=== PATIENT | male | born 1955 | race Caucasian/White ===

== ENCOUNTER 2018-03-09 14:41 | Emergency (ER) | payer OTHER ==
[2018-03-09] MEDS ORDERED: GLUCAGON 1 MG/VIAL ONE ×2 (15:17→16:21)
[2018-03-09] MEDS ORDERED: ONDANSETRON 4 MG/2 ML VIAL ONE (15:17)
[2018-03-09] MEDS ORDERED: LORazepam 2 MG/ML VIAL ONE (15:48)
[2018-03-09 16:03] LABS: Potassium 3.7 mmol/L (3.5-5.1)
[2018-03-09 16:05] LABS: Absolute Lymphocytes (CBC) 1.5 K/uL (0.7-4.9); Absolute Monocytes 0.8 K/uL (0.1-1.3); Absolute Neutrophil 2.4 K/uL (1.8-8.0); Basophils % 1.1 % (0-1.3); Eosinophils % 6.4 % (0-4.4); Hematocrit 36.8 % (39.6-49.0); Lymphocytes % 29.4 % (15.3-44.8); Monocytes % 15.3 % (3.3-12.3); RBC Red Blood Cell Count 4.12 M/uL (4.33-5.43)
[2018-03-09] MEDS ORDERED: NA CHLORIDE 0.9% 1,000 ML ONE (16:56)
[2018-03-09] MEDS ORDERED: D50W 25 GM/50 ML SYRINGE IV ONE (16:56)
--- NOTE | 2018-03-09 16:58 | RAD REPORT ---
EXAM DESCRIPTION: RAD - Neck Soft Tissue - 03/09/2018 3:49 pm CLINICAL HISTORY: foreign body COMPARISON: No comparisons FINDINGS: Prevertebral soft tissues are normal. Epiglottis and aryepiglottic folds are normal. Air c olumn is patent. No foreign body is seen. IMPRESSION: Negative study.
--- NOTE | 2018-03-09 17:14 | ER ---
Nurse's Notes [facility] Name: Surendra Bates Age: 62 yrs Sex: Male : 1955 Arrival Date: 03/09/2018 Time: 14:45 Bed 23 Private MD: Diagnosis: Esophageal obstruction-due to foreign body Presentation: 03/09 14:47 Presenting complaint: EMS states: pt started choking on a piece of hot dog, about 35 tl3 minutes ago, unable to swallow secretions, airway patent, BBS clear. Transition of care: patient was not received from another setting of care. Onset of symptoms was March 09, 2018 at 14:00. Risk Assessment: Do you want to hurt yourself or someone else? Patient reports no desire to harm self or others. Initial Sepsis Screen: Does the patient meet any 2 criteria? No. Patient's initial sepsis screen is negative. Does the patient have a suspected source of infection? No. Patient's initial sepsis screen is negative. Care prior to arrival: None. 14:47 Method Of Arrival: EMS: [facility] tl3 14:47 Acuity: DO 3 tl3 Triage Assessment: 15:02 General: Appears uncomfortable, Behavior is calm, cooperative, appropriate for age. tl3 Pain: Complains of pain in esophageal. 15:02 Neuro: Level of Consciousness is awake, alert, obeys commands, Oriented to person, tl3 place, time, situation, Appropriate for age. Cardiovascular: Patient's skin is warm and dry. Respiratory: Airway is patent Respiratory effort is even, unlabored, Respiratory pattern is regular, symmetrical, Breath sounds are clear bilaterally. Historical: - Allergies: 15:02 No Known Allergies; tl3 - Home Meds: 15:02 pregabalin 225 mg Oral [Active]; leflunomide 20 mg oral tab 1 tab once daily [Active]; tl3 omeprazole 20 mg Oral cpDR 1 cap 2 times per day [Active]; meloxicam 15 mg oral tab 1 tab once daily [Active]; trazodone 100 mg Oral tab 2 tabs nightly [Active]; cyclobenzaprine 10 mg Oral tab 0.5 tab 3 times per day [Active]; escitalopram oxalate 20 mg oral tab 1 tab once daily [Active]; atorvastatin 10 mg oral tab once daily [Active]; ranitidine HCl 150 mg Oral cap 1 cap once daily [Active]; calcium citrate oral [Active]; finasteride 5 mg oral tab 1 tab once daily [Active]; buspirone 10 mg Oral tab 1 tab 3 times per day [Active]; Acidophilus Oral cap [Active]; thiamine HCl (vitamin B1) 100 mg Oral tab daily [Active]; cetirizine 10 mg oral tab 1 tab once daily [Active]; alendronate 70 mg/75 mL oral soln 75 mL once wkly [Active]; Vitamin B-12 100 mcg Oral tab [Active]; - PSHx: 15:02 right hand surgery/ wound drainage; cataract repair right eye; tl3 - Immunization history:: Adult Immunizations up to date. - Social history:: Smoking status: Patient/guardian denies using tobacco, the patient reports quitting approximately 12 years ago. - Ebola Screening: : No symptoms or risks identified at this time. Screenin:04 Abuse screen: Denies threats or abuse. Nutritional screening: No deficits noted. tl3 Tuberculosis screening: No symptoms or risk factors identified. Fall Risk None identified. Assessment: 15:04 Reassessment: No changes from previously documented assessment. tl3 16:14 Reassessment: No changes from previously documented assessment. Patient and/or family tl3 updated on plan of care and expected duration. Pain level reassessed. Patient is alert, oriented x 3, equal unlabored respirations, skin warm/dry/pink. pt still unable to swallow fluids, second dose of glucagon administered. 16:55 Reassessment: pt still unable to tolerate fluids, attempted while sitting straight up tl3 and while standing up. 17:44 Reassessment: No changes from previously documented assessment. Patient and/or family tl3 updated on plan of care and expected duration. Pain level reassessed. Patient is alert, oriented x 3, equal unlabored respirations, skin warm/dry/pink. report called to Melba ROWELL at [facility] in [place]. Vital Signs: 15:02 BP 161 / 101; Pulse 78; Resp 18; Pulse Ox 96% on R/A; tl3 16:14 BP 161 / 96; Pulse 79; Resp 18; Pulse Ox 95% on R/A; tl3 16:44 BP 153 / 96; Pulse 74; Resp 18; Temp 98.2(O); Pulse Ox 94% ; tl3 17:47 BP 158 / 111; Pulse 78; Resp 18; Pulse Ox 97% ; tl3 ED Course: 14:45 Patient arrived in ED. tl3 14:48 Triage completed. tl3 14:55 [facility] cp 14:55 Giuseppe Clemens MD is Attending Physician. cp 15:02 Arm band placed on right wrist. tl3 15:04 Patient has correct armband on for positive identification. Bed in low position. Call tl3 light in reach. Side rails up X 1. Pulse ox on. NIBP on. 15:04 No provider procedures requiring assistance completed. tl3 15:26 Initial lab(s) drawn, by me, sent to lab. Inserted saline lock: 20 gauge in right tl3 antecubital area, using aseptic technique. Blood collected. 15:43 Abby Rich, RN is Primary Nurse. tl3 15:45 Patient moved to radiology via wheelchair. tl3 15:48 X-ray completed. Patient tolerated procedure well. sg4 15:49 XRAY Neck Soft Tissue In Process Unspecified. EDMS 17:44 Patient transferred, IV remains in place. tl3 Administered Medications: 15:25 Drug: Zofran 4 mg Route: IVP; Infused Over: 2 mins; Site: right antecubital; tl3 16:16 Follow up: Response: No adverse reaction tl3 15:27 Drug: Glucagon 1 mg Route: IVP; Infused Over: 1 mins; Site: right antecubital; tl3 16:16 Follow up: Response: No adverse reaction tl3 15:44 Drug: Ativan 1 mg Route: IVP; Infused Over: 1 mins; Site: right antecubital; tl3 16:16 Follow up: Response: No adverse reaction tl3 16:14 Drug: Glucagon 1 mg Route: IVP; Site: right antecubital; tl3 16:43 Follow up: Response: No adverse reaction tl3 16:54 Drug: NS 0.9% 500 ml Route: IV; Rate: bolus; Site: right antecubital; Delivery: Primary tl3 tubing; 17:45 Follow up: IV Status: Completed infusion; IV Intake: 500ml tl3 16:55 Drug: D50W 50 ml Route: IVP; Infused Over: 2 mins; Site: right antecubital; tl3 17:45 Follow up: Response: No adverse reaction tl3 Point of Care Testing: Blood Glucose: 15:26 Blood Glucose: 82 mg/dL; tl3 Ranges: Intake: 17:45 IV: 500ml; Total: 500ml. tl3 Outcome: 17:13 ER care complete, transfer ordered by . cp 17:44 Transferred by ground EMS to [facility]. tl3 17:44 Condition: stable 17:44 Instructed on the need for transfer. 18:16 Patient left the ED. tl3 Signatures: Dispatcher [employer] EDMS Kash Diaz PA PA cp Lowrey, Tammy, RN RN tl3 Piedad Huynh sg4
--- NOTE | 2018-03-09 17:14 | EDPHYS ---
Physician Documentation [facility] Name: Surendra Bates Age: 62 yrs Sex: Male : 1955 Arrival Date: 03/09/2018 Time: 14:45 Bed 23 Private MD: ED Physician Giuseppe Clemens HPI: 03/09 15:00 This 62 yrs old Male presents to ER via EMS with complaints of Choked/Choking.cp 15:02 The patient presents with dysphagia, of liquids, a foreign body sensation in the cp throat. Onset: The symptoms/episode began/occurred today. Severity of symptoms: in the emergency department the symptoms are unchanged, despite EMS interventions. Associated signs and symptoms: Pertinent positives: cough, vomiting, Pertinent negatives chest pain, fever. Patient reports feeling of piece of hot dog being stuck in throat after episode of choking today. Patient reports inability to swallow liquids since episode of choking. Historical: - Allergies: 15:02 No Known Allergies; tl3 - Home Meds: 15:02 pregabalin 225 mg Oral [Active]; leflunomide 20 mg oral tab 1 tab once daily [Active]; tl3 omeprazole 20 mg Oral cpDR 1 cap 2 times per day [Active]; meloxicam 15 mg oral tab 1 tab once daily [Active]; trazodone 100 mg Oral tab 2 tabs nightly [Active]; cyclobenzaprine 10 mg Oral tab 0.5 tab 3 times per day [Active]; escitalopram oxalate 20 mg oral tab 1 tab once daily [Active]; atorvastatin 10 mg oral tab once daily [Active]; ranitidine HCl 150 mg Oral cap 1 cap once daily [Active]; calcium citrate oral [Active]; finasteride 5 mg oral tab 1 tab once daily [Active]; buspirone 10 mg Oral tab 1 tab 3 times per day [Active]; Acidophilus Oral cap [Active]; thiamine HCl (vitamin B1) 100 mg Oral tab daily [Active]; cetirizine 10 mg oral tab 1 tab once daily [Active]; alendronate 70 mg/75 mL oral soln 75 mL once wkly [Active]; Vitamin B-12 100 mcg Oral tab [Active]; - PSHx: 15:02 right hand surgery/ wound drainage; cataract repair right eye; tl3 - Immunization history:: Adult Immunizations up to date. - Social history:: Smoking status: Patient/guardian denies using tobacco, the patient reports quitting approximately 12 years ago. - Ebola Screening: : No symptoms or risks identified at this time. ROS: 15:04 Eyes: Negative for injury, pain, redness, and discharge. cp 15:04 Constitutional: Negative for body aches, chills, fever, poor PO intake. 15:04 ENT: Positive for foreign body sensation, of the throat. 15:04 Neck: Negative for injury or acute deformity, pain with movement, pain at rest. 15:04 Cardiovascular: Negative for chest pain, edema, palpitations. 15:04 Respiratory: Negative for cough, shortness of breath, wheezing. 15:04 Abdomen/GI: Positive for nausea and vomiting, Negative for abdominal pain, diarrhea, constipation. 15:04 Back: Negative for pain at rest, pain with movement, radiated pain. 15:04 Skin: Negative for cellulitis, rash. 15:04 Neuro: Negative for altered mental status, headache, weakness. 15:04 All other systems are negative. Exam: 15:10 Constitutional: The patient appears in no acute distress, alert, awake, cp non-diaphoretic, non-toxic, well developed, well nourished. 15:10 Head/Face: Normocephalic, atraumatic. cp 17:14 Eyes: Periorbital structures: appear normal, Pupils: equal, round, and reactive to cp light and accomodation, Extraocular movements: intact throughout, Conjunctiva: normal, no exudate, no injection, Sclera: no appreciated abnormality, Lids and lashes: appear normal, bilaterally. 17:14 ENT: External ear(s): are unremarkable, Ear canal(s): are normal, clear, TM's: bulging, is not appreciated, bilaterally, dullness, bilaterally, erythema, is not appreciated, bilaterally, Nose: is normal, Mouth: Lips: moist, Oral mucosa: pink and intact, moist, Tongue: is normal, drooling, is not appreciated, Posterior pharynx: Airway: no evidence of obstruction, patent, Tonsils: are normal in appearance, Uvula: midline, swelling, is not appreciated, erythema, is not appreciated, exudate, is not appreciated, Voice: is hoarse. 17:14 Neck: ROM/movement: is normal, is supple, no range of motions limitations, no meningismus, no nuchal rigidity. 17:14 Chest/axilla: Inspection: normal, Palpation: is normal, no crepitus, no tenderness. 17:14 Cardiovascular: Rate: normal, Rhythm: regular, Edema: is not appreciated, JVD: is not appreciated. 17:14 Respiratory: the patient does not display signs of respiratory distress, Respirations: normal, no use of accessory muscles, no retractions, no splinting, no tachypnea, labored breathing, is not present, Breath sounds: are clear throughout, no decreased breath sounds, no stridor, no wheezing. 17:14 Abdomen/GI: Inspection: abdomen appears normal, Bowel sounds: active, all quadrants, Palpation: abdomen is soft and non-tender, in all quadrants, rebound tenderness, is not appreciated, voluntary guarding, is not appreciated, involuntary guarding, is not appreciated. 17:14 Back: pain, is absent, ROM is normal. 17:14 Skin: cellulitis, is not appreciated, no rash present. 17:14 Neuro: Orientation: is normal, Mentation: is normal, Cerebellar function: is grossly normal, Motor: is normal, Sensation: is normal. Vital Signs: 15:02 BP 161 / 101; Pulse 78; Resp 18; Pulse Ox 96% on R/A; tl3 16:14 BP 161 / 96; Pulse 79; Resp 18; Pulse Ox 95% on R/A; tl3 16:44 BP 153 / 96; Pulse 74; Resp 18; Temp 98.2(O); Pulse Ox 94% ; tl3 17:47 BP 158 / 111; Pulse 78; Resp 18; Pulse Ox 97% ; tl3 MDM: 14:55 Patient medically screened. cp 16:30 Data reviewed: vital signs, nurses notes, lab test result(s), radiologic studies, plain cp films. 16:30 Counseling: I had a detailed discussion with the patient and/or guardian regarding: the cp historical points, exam findings, and any diagnostic results supporting the discharge/admit diagnosis, lab results, radiology results, the need to transfer to another facility, [facility] does not immediately have the required specialist. 16:36 ED course: VSS. Patient remains intolerant of po fluids. cp 17:19 Physician consultation: was contacted at 17:10, DR Galo, hospitalist \T\[facility], will accept patient as transfer and GI will consult. 03/09 15:01 Order name: BMP; Complete Time: 16:15 03/09 15:01 Order name: CBC with Diff; Complete Time: 16:15 03/09 16:16 Interpretation: Normal except: RBC 4.12; HGB 12.5; HCT 36.8; PLT 113; RDW 16.9; MN% cp 15.3; EOSINOPHIL % 6.4. 03/09 15:01 Order name: XRAY Neck Soft Tissue; Complete Time: 17:14 03/09 17:14 Interpretation: Report reviewed. 03/09 15:01 Order name: IV; Complete Time: 15:25 03/09 15:01 Order name: Accucheck Blood Glucose; Complete Time: 15:25 03/09 15:33 Order name: PO challenge; Complete Time: 16:43 03/09 16:37 Order name: Vital Signs: repeat to include temp; Complete Time: 16:44 03/09 17:03 Order name: NPO; Complete Time: 17:47 cp Administered Medications: 15:25 Drug: Zofran 4 mg Route: IVP; Infused Over: 2 mins; Site: right antecubital; tl3 16:16 Follow up: Response: No adverse reaction tl3 15:27 Drug: Glucagon 1 mg Route: IVP; Infused Over: 1 mins; Site: right antecubital; tl3 16:16 Follow up: Response: No adverse reaction tl3 15:44 Drug: Ativan 1 mg Route: IVP; Infused Over: 1 mins; Site: right antecubital; tl3 16:16 Follow up: Response: No adverse reaction tl3 16:14 Drug: Glucagon 1 mg Route: IVP; Site: right antecubital; tl3 16:43 Follow up: Response: No adverse reaction tl3 16:54 Drug: NS 0.9% 500 ml Route: IV; Rate: bolus; Site: right antecubital; Delivery: Primary tl3 tubing; 17:45 Follow up: IV Status: Completed infusion; IV Intake: 500ml tl3 16:55 Drug: D50W 50 ml Route: IVP; Infused Over: 2 mins; Site: right antecubital; tl3 17:45 Follow up: Response: No adverse reaction tl3 Point of Care Testing: Blood Glucose: 15:26 Blood Glucose: 82 mg/dL; tl3 Ranges: Critical Glucose Levels:Adult <50 mg/dl or >400 mg/dl <40 mg/dl or >180 mg/dl Disposition: 03/09/18 17:13 Transfer ordered to [facility]. Diagnosis is Esophageal obstruction - due to foreign body. - Reason for transfer: Higher level of care. - Accepting physician is DR Galo. - Condition is Stable. - Problem is new. - Symptoms are unchanged. Addendum: 03/20/2018 15:41 Co-signature as Attending Physician, Giuseppe Clemens MD Available for consultation at p s1 all times. . Signatures: Dispatcher [employer] EDMS Kash Diaz PA PA cp Giuseppe Clemens MD MD ps1 Abby Rich RN RN tl3 Corrections: (The following items were deleted from the chart) 03/09 18:16 17:13 03/09/2018 17:13 Transfer ordered to [facility]. Diagnosis is tl3 Esophageal obstruction - due to foreign body. Reason for transfer: Higher level of care. Accepting physician is DR Galo. Condition is Stable. Problem is new. Symptoms are unchanged. cp
== END 2018-03-09 18:16 | disposition short-term general hospital (02) ==
LOC: ER 14:41
DX: T18.198A Other foreign object in esophagus causing other injury, initial encounter (principal); X58.XXXA Exposure to other specified factors, initial encounter; Z79.899 Other long term (current) drug therapy; Z87.891 Personal history of nicotine dependence
CPT/HCPCS: 36415; 70360; 80048; 82962; 85025; 96361; 96374; 96375; 99285; J1610 ×2; J2405; J7030

== ENCOUNTER 2018-12-15 13:21 | Inpatient (IN) | payer OTHER ==
[2018-12-15] MEDS ORDERED: LEVALBUTEROL 1.25 MG/3 ML NEB ONE (15:09)
[2018-12-15] MEDS ORDERED: NA CHLORIDE 0.9% 1,000 ML ONE (15:09)
[2018-12-15] MEDS ORDERED: METHYLPREDNISOLONE 125 MG INJ ONE (15:09)
[2018-12-15 15:34] LABS: Absolute Lymphocytes (CBC) 0.7 K/uL (0.7-4.9); Basophils % 0.4 % (0-1.3); Hematocrit 29.5 % (39.6-49.0); Lymphocytes % 6.7 % (15.3-44.8); MPV 10.5 fL (7.6-11.3); RBC Red Blood Cell Count 3.24 M/uL (4.33-5.43)
[2018-12-15 15:57] LABS: ALT/SGPT 20 U/L (12-78); AST/SGOT 35 U/L (15-37); Alkaline Phosphatase 159 U/L (45-117); BUN Blood Urea Nitrogen 21 mg/dL (7-18); Bicarbonate 31 mmol/L (21-32); Bilirubin Direct 0.2 mg/dL (0-0.2); Bilirubin Total 0.5 mg/dL (0.2-1.0); Glucose Level 102 mg/dL (74-106); Lipase 81 U/L (73-393); NT PRO-BNP 146 pg/mL (<125); Potassium 3.6 mmol/L (3.5-5.1); Protein, Total 6.8 g/dL (6.4-8.2); Sodium Level 134 mmol/L (136-145); Troponin (Emerg Dept Use Only) < 0.02 ng/mL (0.0-0.045)
--- NOTE | 2018-12-15 15:57 | RAD REPORT ---
EXAM DESCRIPTION: RAD - Chest Single View - 12/15/2018 3:41 pm CLINICAL HISTORY: Fever, shortness of breath, dyspnea COMPARISON: None. TECHNIQUE: AP portable chest image was obtained 1531 hours . FINDINGS: Interstitial markings are mildly prominent believed be baseline. Increased interstitial an d alveolar opacities are present in the left lung base. Heart and vasculature are normal. No measurab le pleural effusion and no pneumothorax. No acute bony abnormality seen. No acute aortic findings inés pected. IMPRESSION: Mild or early left lung base pneumonia.
[2018-12-15] MEDS ORDERED: CEFTRIAXONE/SWI 1gm 1 GM/10 ML SYR ONE (16:26)
[2018-12-15] MEDS ORDERED: AZITHROMYCIN IV 500 MG in NA CHLORIDE 0.9% 250 ML IVPB ONE (17:00)
--- NOTE | 2018-12-15 17:14 | RAD REPORT ---
EXAM DESCRIPTION: CT - Abdomen Pelvis W Contrast - 12/15/2018 4:57 pm CLINICAL HISTORY: abd pain, diarrhea COMPARISON: Chest films same date TECHNIQUE: Biphasic, helical CT imaging of the abdomen and pelvis was performed following 100 ml non -ionic IV contrast. Oral contrast was given. All CT scans are performed using dose optimization technique as appropriate and may include automated exposure control or mA/KV adjustment according to patient size. FINDINGS: No pericardial thickening or effusion. Interstitial and alveolar opacities are present in the left lung base and minimally in the posterior gutter on the right. No large mass or consolidation . Minimal stranding in the lingula which could be scarring. The liver, spleen, and pancreas show no suspicious findings. At least 1 small gallstone is present. N o active gallbladder process identified. No biliary tree dilatation. Symmetric renal function is seen with no hydronephrosis or suspicious renal mass. No pyelonephritis o r acute parenchymal process. Renal vascular calcifications are present. Urinary bladder is distended. No wall thickening or mass. No adrenal abnormalities. Small hiatal hernia is present. No gastric dilatation, wall thickening or mass identified. Fluid fill ed, nondilated distal small bowel loops are present. Fluid filled right-side of the colon is present without dilatation. No focal colon wall mass or wall thickening. Sigmoid is redundant extending to th e anterior upper mid abdomen. No free air, free fluid or inflammatory stranding. No hernia, mass or bulky lymphadenopathy. Bony degenerative changes are present. No acute bone finding. Vascular calcifications are present. IMPRESSION: Fluid-filled distal small bowel and right-side: Suspicious for a nonspecific enteritis. Bilateral lung base pneumonia findings worse on the left. Cholelithiasis without active gallbladder process.
--- NOTE | 2018-12-15 17:32 | EDPHYS ---
Physician Documentation [facility] Name: Surendra Bates Age: 63 yrs Sex: Male : 1955 Arrival Date: 12/15/2018 Time: 13:[address] Private MD: ED Physician Vijay Dinero HPI: 12/15 15:22 This 63 yrs old Male presents to ER via Wheelchair with complaints of rn Shortness Of Breath, Fever, Fall Injury. 15:22 The patient has shortness of breath at rest, with light activity. Onset: The rn symptoms/episode began/occurred 2 week(s) ago. Duration: The symptoms are continuous. The patient's shortness of breath is aggravated by exertion, light activity. Severity of symptoms: At their worst the symptoms were moderate in the emergency department the symptoms are unchanged. The patient has not experienced similar symptoms in the past. Family reports has been having intermittent fever for 2 weeks, assoc with productive cough and generalized weakness causing him to fall and possibly pass out. Reports non-bloody diarrhea, and right rib pain from most recent fall. Family reports has not been drinking water. . Historical: - Allergies: 13:52 No Known Allergies; la1 - Home Meds: 14:53 Acidophilus Oral cap [Active]; alendronate 70 mg/75 mL Oral soln 75 mL once wkly sg [Active]; atorvastatin 10 mg Oral tab once daily [Active]; buspirone 10 mg Oral tab 1 tab 3 times per day [Active]; Calcium Citrate Oral [Active]; cetirizine 10 mg Oral tab 1 tab once daily [Active]; cyclobenzaprine 10 mg Oral tab 0.5 tab 3 times per day [Active]; escitalopram oxalate 20 mg Oral tab 1 tab once daily [Active]; finasteride 5 mg Oral tab 1 tab once daily [Active]; leflunomide 20 mg Oral tab 1 tab once daily [Active]; meloxicam 15 mg Oral tab 1 tab once daily [Active]; omeprazole 20 mg Oral cpDR 1 cap 2 times per day [Active]; pregabalin 225 mg Oral [Active]; ranitidine HCl 150 mg Oral cap 1 cap once daily [Active]; thiamine HCl (vitamin B1) 100 mg Oral tab daily [Active]; trazodone 100 mg Oral tab 2 tabs nightly [Active]; Vitamin B-12 100 mcg Oral tab [Active]; - PSHx: 14:53 right hand surgery/ wound drainage; cataract repair right eye; sg - Immunization history:: Adult Immunizations up to date. - Social history:: Smoking status: Patient/guardian denies using tobacco. - Ebola Screening: : No symptoms or risks identified at this time. - Family history:: not pertinent. - Hospitalizations: : No recent hospitalization is reported. ROS: 15:22 Constitutional: Negative for weight loss Eyes: Negative for injury, pain, redness, and furniture sander, Neck: Negative for injury, pain, and swelling, Cardiovascular: Negative for palpitations, and edema, Respiratory: + sob and cough Abdomen/GI: Negative for abdominal pain, nausea, vomiting, and constipation, MS/Extremity: Negative for injury and deformity, Skin: Negative for injury, rash, and discoloration, Neuro: Negative for headache, numbness, tingling, and seizure. Exam: 15:22 Constitutional: Thin male, appears dehydrated and weak Head/Face: Normocephalic, rn atraumatic. Eyes: Pupils equal round and reactive to light, extra-ocular motions intact. Lids and lashes normal. Conjunctiva and sclera are non-icteric and not injected. Cornea within normal limits. Periorbital areas with no swelling, redness, or edema. ENT: dry MM Chest/axilla: + tenderness along right anterior/lateral chest wall, no crepitus, no ecchymosis Cardiovascular: Regular rate and rhythm. No pulse deficits. Respiratory: + diminished air flow and breath sounds bilateral lung colon, faint exp wheezing. Abdomen/GI: soft, mild RUQ tenderness, no rebound MS/ Extremity: Pulses equal, no cyanosis. Neurovascular intact. Full, normal range of motion. Equal circumference. Neuro: Awake and alert, GCS 15, oriented to person, place, time, and situation. Cranial nerves II-XII grossly intact. Motor strength 4/5 in all extremities. Sensory grossly intact. Cerebellar exam normal. Vital Signs: 13:52 BP 94 / 67; Pulse 91; Resp 16; Temp 98.4; Pulse Ox 91% on R/A; la1 14:30 BP 96 / 72; Pulse 90; Resp 20 S; Pulse Ox 97% on 2 lpm NC; sg 16:00 BP 102 / 60; Pulse 96; Resp 17; Pulse Ox 96% on 2 lpm NC; sg 18:00 BP 108 / 62; Pulse 90; Resp 20; Pulse Ox 97% on 2 lpm NC; sg MDM: 14:50 Patient medically screened. rn 16:14 Differential diagnosis: Chronic Obstructive Pulmonary Disease pneumonia, pulmonary rn edema, Sepsis. Data reviewed: vital signs, nurses notes, lab test result(s), EKG, radiologic studies, plain films, and as a result, I will admit patient. Counseling: I had a detailed discussion with the patient and/or guardian regarding: the historical points, exam findings, and any diagnostic results supporting the discharge/admit diagnosis, lab results, radiology results, the need for further work-up and treatment in the hospital. Response to treatment: the patient's symptoms have mildly improved after treatment, and as a result, I will admit patient. Admission orders: after a detailed discussion of the patient's condition and case, the admit orders are written by me. ED course: Pt admitted for pneumonia, failure of outpatient therapy, dehydration and weakness. NO oxygen at home, and here is high 80s on RA. . 12/15 15:04 Order name: Blood Culture Adult (2) rn 12/15 15:04 Order name: BMP rn 12/15 15:04 Order name: CBC with Diff rn 12/15 15:04 Order name: Hepatic Function rn 12/15 15:04 Order name: Lipase rn 12/15 15:04 Order name: NT PRO-BNP rn 12/15 15:04 Order name: Troponin (emerg Dept Use Only) rn 12/15 15:04 Order name: Procalcitonin rn 12/15 15:04 Order name: Lactate rn 12/15 15:04 Order name: Flu rn 12/15 15:43 Order name: CBC with Automated Diff; Complete Time: 16:05 EDAR 12/15 15:57 Order name: Basic Metabolic Panel; Complete Time: 16:05 EDAR 12/15 15:57 Order name: Liver (Hepatic) Function; Complete Time: 16:05 EDMS 12/15 15:57 Order name: Troponin (Emerg Dept Use Only); Complete Time: 16:05 EDAR 12/15 15:04 Order name: XRAY CXR (1 view) rn 12/15 15:04 Order name: EKG; Complete Time: 15:12 rn 12/15 15:26 Order name: CT Abd/Pelvis - IV Contrast Only rn 12/15 15:57 Order name: NT PRO-BNP; Complete Time: 16:05 EDAR 12/15 15:57 Order name: Lipase; Complete Time: 16:05 EDAR 12/15 15:57 Order name: Lactate; Complete Time: 16:05 EDAR 12/15 15:59 Order name: RAD; Complete Time: 16:05 EDAR 12/15 16:10 Order name: Procalcitonin; Complete Time: 16:13 EDAR 12/15 16:15 Order name: Influenza Screen (A ; Complete Time: 16:18 EDAR 12/15 17:16 Order name: CT EDAR 12/15 17:41 Order name: Urine Dipstick--Ancillary (enter results) 12/15 15:04 Order name: Cardiac monitoring; Complete Time: 15:25 rn 12/15 15:04 Order name: EKG - Nurse/Tech; Complete Time: 15:25 rn 12/15 15:04 Order name: IV Saline Lock; Complete Time: 15:25 rn 12/15 15:04 Order name: Labs collected and sent; Complete Time: 15:25 rn 12/15 15:04 Order name: O2 Per Protocol; Complete Time: 15:25 rn 12/15 15:04 Order name: O2 Sat Monitoring; Complete Time: 15:25 rn Administered Medications: 15:08 Drug: Xopenex (3) 1.25 mg Route: Inhalation; sg 15:15 Drug: NS 0.9% 1000 ml Route: IV; Rate: 1000 ml; Site: right antecubital; sg 15:15 Drug: SOLU-Medrol 125 mg Route: IVP; Site: right antecubital; sg 15:40 Follow up: Response: No adverse reaction sg 16:15 Drug: Rocephin - (cefTRIAXone) 1 grams Route: IVPB; Infused Over: 30 mins; Site: right sg antecubital; 16:20 Follow up: Response: No adverse reaction; IV Status: Completed infusion sg 16:30 Drug: Zithromax 500 mg Route: IVPB; Infused Over: 1 hrs; Site: right antecubital; sg 18:15 Follow up: Response: No adverse reaction; IV Status: Completed infusion sg Disposition: 12/15/18 16:18 Hospitalization ordered by Elaine Quan for Inpatient Admission. Preliminary diagnosis are Pneumonia, Chronic obstructive pulmonary disease with acute lower respiratory infection, Chronic obstructive pulmonary disease with (acute) exacerbation, Dehydration. - Bed requested for Telemetry/MedSurg (Inpatient). - Status is Inpatient Admission. iw - Condition is Stable. - Problem is an ongoing problem. - Symptoms have improved. UTI on Admission? No Signatures: Dispatcher [employer] EDMS Lynette Branch RN RN dw Gay, Steven, RN RN sg Tori Falcon RN RN iw Vijay Dinero MD MD rn Attema, Lee, RN RN la1 Corrections: (The following items were deleted from the chart) 16: 16:18 Hospitalization Ordered by Ggee Logan MD for Inpatient Admission. Preliminary rn diagnosis is Pneumonia; Chronic obstructive pulmonary disease with acute lower respiratory infection; Chronic obstructive pulmonary disease with (acute) exacerbation; Dehydration. Bed requested for Telemetry/MedSurg (Inpatient). Status is Inpatient Admission. Condition is Stable. Problem is an ongoing problem. Symptoms have improved. UTI on Admission? No. rn 17:47 16:21 12/15/2018 16:18 Hospitalization Ordered by Elaine Quan MD for Inpatient dw Admission. Preliminary diagnosis is Pneumonia; Chronic obstructive pulmonary disease with acute lower respiratory infection; Chronic obstructive pulmonary disease with (acute) exacerbation; Dehydration. Bed requested for Telemetry/MedSurg (Inpatient). Status is Inpatient Admission. Condition is Stable. Problem is an ongoing problem. Symptoms have improved. UTI on Admission? No. rn 18:14 17:47 12/15/2018 16:18 Hospitalization Ordered by Elaine Quan MD for Inpatient iw Admission. Preliminary diagnosis is Pneumonia; Chronic obstructive pulmonary disease with acute lower respiratory infection; Chronic obstructive pulmonary disease with (acute) exacerbation; Dehydration. Bed requested for Telemetry/MedSurg (Inpatient). Status is Inpatient Admission. Condition is Stable. Problem is an ongoing problem. Symptoms have improved. UTI on Admission? No. dw
--- NOTE | 2018-12-15 17:32 | ER ---
Nurse's Notes [facility] Name: Surendra Bates Age: 63 yrs Sex: Male : 1955 Arrival Date: 12/15/2018 Time: 13:[address] Private MD: Diagnosis: Pneumonia;Chronic obstructive pulmonary disease with acute lower respiratory infection;Chronic obstructive pulmonary disease with (acute) exacerbation;Dehydration Presentation: 12/15 13:51 Presenting complaint: Patient states: I have been sick for 2.5 weeks with fever. Just la1 completed amoxicillin from [facility] and they told me to come in if I dont get better. I have parkinsons and have been falling a lot at home as well. Transition of care: patient was not received from another setting of care. Onset of symptoms was December 15, 2018. Risk Assessment: Do you want to hurt yourself or someone else? Patient reports no desire to harm self or others. Initial Sepsis Screen: Does the patient meet any 2 criteria? No. Patient's initial sepsis screen is negative. Does the patient have a suspected source of infection? No. Patient's initial sepsis screen is negative. Care prior to arrival: None. 13:51 Method Of Arrival: Wheelchair la1 13:51 Acuity: DO 3 la1 Historical: - Allergies: 13:52 No Known Allergies; la1 - Home Meds: 14:53 Acidophilus Oral cap [Active]; alendronate 70 mg/75 mL Oral soln 75 mL once wkly sg [Active]; atorvastatin 10 mg Oral tab once daily [Active]; buspirone 10 mg Oral tab 1 tab 3 times per day [Active]; Calcium Citrate Oral [Active]; cetirizine 10 mg Oral tab 1 tab once daily [Active]; cyclobenzaprine 10 mg Oral tab 0.5 tab 3 times per day [Active]; escitalopram oxalate 20 mg Oral tab 1 tab once daily [Active]; finasteride 5 mg Oral tab 1 tab once daily [Active]; leflunomide 20 mg Oral tab 1 tab once daily [Active]; meloxicam 15 mg Oral tab 1 tab once daily [Active]; omeprazole 20 mg Oral cpDR 1 cap 2 times per day [Active]; pregabalin 225 mg Oral [Active]; ranitidine HCl 150 mg Oral cap 1 cap once daily [Active]; thiamine HCl (vitamin B1) 100 mg Oral tab daily [Active]; trazodone 100 mg Oral tab 2 tabs nightly [Active]; Vitamin B-12 100 mcg Oral tab [Active]; - PSHx: 14:53 right hand surgery/ wound drainage; cataract repair right eye; sg - Immunization history:: Adult Immunizations up to date. - Social history:: Smoking status: Patient/guardian denies using tobacco. - Ebola Screening: : No symptoms or risks identified at this time. - Family history:: not pertinent. - Hospitalizations: : No recent hospitalization is reported. Screenin:33 Abuse screen: Denies threats or abuse. Denies injuries from another. Nutritional sg screening: No deficits noted. Tuberculosis screening: No symptoms or risk factors identified. Never had TB. Fall Risk Fall in past 12 months (25 points). Total George Fall Scale indicates Low Risk Score (25-44 pts). Fall prevention measures have been instituted. Side Rails Up X 2 Placed close to Nursing Station Frequent Obs/Assesments occuring As available Patient and Family Educated on Fall Prevention Program and strategies. Assessment: 14:20 General: Appears in no apparent distress. well groomed, well developed, well nourished, sg Behavior is calm, cooperative, appropriate for age. Neuro: Level of Consciousness is awake, alert, obeys commands, Oriented to person, place, time. 14:25 Reassessment: pt reports shortness of breath, o2 saturation noted to be 93%, pt placed sg to NC at 2 lpm, o2 saturation increased to 97%, pt reports feeling better with o2. 14:32 Pain: Complains of pain in back. Cardiovascular: Heart tones S1 S2 present Patient's sg skin is warm and dry. Chest pain is denied. Respiratory: Reports shortness of breath at rest on exertion cough that is non-productive, hacking, persistent pain with cough Airway is patent Respiratory effort is even, labored, Respiratory pattern is regular, symmetrical, Breath sounds are diminished in right posterior middle lobe the patient has mild shortness of breath. GI: Abdomen is round non-distended, Bowel sounds present X 4 quads. Reports tolerance of fluids, tolerance of food. : No signs and/or symptoms were reported regarding the genitourinary system. EENT: No signs and/or symptoms were reported regarding the EENT system. Derm: Skin is thin, Skin is dry, Skin is pale, Skin temperature is cool. Musculoskeletal: Circulation, motion, and sensation intact. Range of motion: intact in all extremities. 17:10 Reassessment: Patient appears in no apparent distress at this time. Patient and/or sg family updated on plan of care and expected duration. Pain level reassessed. Patient is alert, oriented x 3, equal unlabored respirations, skin warm/dry/pink. at bedside evaluating patient at this time Patient states feeling better. 17:44 Reassessment: Patient appears in no apparent distress at this time. notified sg of the urine dipstick results no new orders received at this time. Vital Signs: 13:52 BP 94 / 67; Pulse 91; Resp 16; Temp 98.4; Pulse Ox 91% on R/A; la1 14:30 BP 96 / 72; Pulse 90; Resp 20 S; Pulse Ox 97% on 2 lpm NC; sg 16:00 BP 102 / 60; Pulse 96; Resp 17; Pulse Ox 96% on 2 lpm NC; sg 18:00 BP 108 / 62; Pulse 90; Resp 20; Pulse Ox 97% on 2 lpm NC; sg ED Course: 13:23 Patient arrived in ED. as 13:52 Triage completed. la1 13:52 Arm band placed on left wrist. la1 14:20 No provider procedures requiring assistance completed. sg 14:22 Malik Schwarz, RN is Primary Nurse. sg 14:50 Vijay Dinero MD is Attending Physician. rn 14:53 ED physician to see patient. sg 15:18 Initial lab(s) drawn, by ne, sent to lab. First set of blood cultures drawn by ne. 3 Inserted saline lock: 18 gauge in right antecubital area, using aseptic technique. Blood collected. 15:24 EKG done, by field map technician. reviewed by Vijay Dinero MD. sm3 15:35 Second set of blood cultures drawn by ne. dh3 15:36 Radiology exam delayed due to lab results not completed at this time. (BUN/Creatinine). vm2 15:36 Flu and/or RSV swab sent to lab. dh3 15:57 Radiology exam delayed due to lab results not completed at this time. (BUN/Creatinine). 16:16 Gege Logan MD is Hospitalizing Provider. rn 16:20 Elaine Quan MD is Hospitalizing Provider. rn 17:16 CT In Process Unspecified. EDMS 18:10 Patient admitted, IV remains in place. intact, No redness/swelling at site. sg 18:15 Patient has correct armband on for positive identification. Bed in low position. Call sg light in reach. Side rails up X2. Pulse ox on. NIBP on. Warm blanket given. Head of bed elevated. Administered Medications: 15:08 Drug: Xopenex (3) 1.25 mg Route: Inhalation; sg 15:15 Drug: NS 0.9% 1000 ml Route: IV; Rate: 1000 ml; Site: right antecubital; sg 15:15 Drug: SOLU-Medrol 125 mg Route: IVP; Site: right antecubital; sg 15:40 Follow up: Response: No adverse reaction sg 16:15 Drug: Rocephin - (cefTRIAXone) 1 grams Route: IVPB; Infused Over: 30 mins; Site: right sg antecubital; 16:20 Follow up: Response: No adverse reaction; IV Status: Completed infusion sg 16:30 Drug: Zithromax 500 mg Route: IVPB; Infused Over: 1 hrs; Site: right antecubital; sg 18:15 Follow up: Response: No adverse reaction; IV Status: Completed infusion sg Outcome: 16:18 Decision to Hospitalize by Provider. rn 18:10 Admitted to Med/surg accompanied by tech, via stretcher, room 424, with oxygen, with iw chart, Report called to LELIA Pelayo 18:10 Condition: stable 18:10 Instructed on the need for admit, safety practices. 18:14 Patient left the ED. iw Signatures: Dispatcher [employer] EDMS Malik Schwarz RN RN sg Jones, Susan sj Martinez, Amelia as Williams, Irene, RN RN iw Nieto, Roman, MD MD rn Attema, Lee, RN RN la1 McGuire, Victoria Roberta Ferreira formerly [facility] [place] [address] 3
[2018-12-15] MEDS ORDERED: ONDANSETRON 4 MG/2 ML VIAL IV PRN (18:15)
--- NOTE | 2018-12-15 18:18 | P.HP ---
Certification for Inpatient Patient admitted to: Inpatient With expected LOS: >2 Midnights Practitioner: I am a practitioner with admitting privileges, knowledge of patient current condition, hospital course, and medical plan of care. Services: Services provided to patient in accordance with Admission requirements found in Title 42 Section 412.3 of the Code of Federal Regulations Patient History Date of Service: 12/15/18 Reason for admission: Shortness of breath History of Present Illness: This is a 63-year-old female with past medical history of hyperlipidemia, depression who presents to the emergency room with fever, diarrhea, cough with phlegm and increasing shortness of breath. Per patient, for the past 2 to 2-1/ 2 weeks he has been having these symptoms of fever cough with phlegm and increased shortness of breath. He saw his primary care physician 1 week ago and complete the course of antibiotics. This antibiotic course did not help of feel any better. Since then he has been having progressively worsening shortness of breath along with nausea as well. He denies any chest pain, dizziness, vision changes, GI or complaints. He denies any hemoptysis, blood in the stool or active bleeding anywhere else. He is a current smoker, 1.5-2 packs per day for the past 34 years. He stated that he stops for 13 years in the middle and started again in 6 months ago. He denies any alcohol or any other drugs. In the ER, blood pressure was 94/67, heart rate of 91, respirations of 16, afebrile at 98.4 with saturations of 91% on room air. His labs were remarkable for hemoglobin decreased at 9.8, platelets 90, Procalamine did 2.97 with normal lactic acid. Chest x-ray was evident of left base pneumonia. An abdominal CT was also done to evaluate for bleeding due to his low hemoglobin levels. He was found to have some nonspecific enteritis. In the ER, he received Rocephin, azithromycin, Solu-Medrol and nebulizer treatments. At the time of my exam, patient was hemodynamically stable, in no acute distress and alert oriented x3. Allergies No Known Drug Allergies Allergy (Unverified 09/26/14 01:58) Unknown Home medications list reviewed: Yes Review of Systems 10-point ROS is otherwise unremarkable Physical Examination - Physical Exam General: Alert, In no apparent distress, Oriented x3, Other (Elderly, ill appearing. Looks older than stated age) HEENT: Atraumatic, PERRLA, Mucous membr. moist/pink, EOMI, Sclerae nonicteric Neck: Supple, 2+ carotid pulse no bruit, No LAD, Without JVD or thyroid abnormality Respiratory: Dull, Crackles/rales, Expiratory wheezes Cardiovascular: Regular rate/rhythm, Normal S1 S2 Gastrointestinal: Normal bowel sounds, No tenderness Musculoskeletal: No tenderness Integumentary: No rashes Neurological: Normal gait, Normal speech, Normal strength at 5/5 x4 extr, Normal tone, Normal affect Lymphatics: No axilla or inguinal lymphadenopathy - Studies Laboratory Data (last 24 hrs) 12/15/18 15:18: WBC 10.1, Hgb 9.8 L, Hct 29.5 L, Plt Count 90 L 12/15/18 15:18: Sodium 134 L, Potassium 3.6, BUN 21 H, Creatinine 0.95, Glucose 102, Total Bilirubin 0.5, AST 35, ALT 20, Alkaline Phosphatase 159 H, Lipase 81 Microbiology Data (last 24 hrs): 12/15/18 15:36 Nasopharnyx Influenza Type A Antigen Screen - Final 12/15/18 15:36 Nasopharnyx Influenza Type B Antigen Screen - Final Assessment and Plan - Problems (Diagnosis) (1) Pneumonia Current Visit: Yes Status: Acute Plan: Patient with left basilar pneumonia on chest x-ray. -failed outpatient therapy -IV antibiotics with Rocephin and azithromycin -cultures pending -repeat chest x-ray in the morning -supplemental oxygen as needed, wean as tolerated -IV fluids, maintenance dose -will get a CT chest and pulmonology consult if no improvement Qualifiers: Pneumonia type: due to unspecified organism Laterality: left Lung location: lower lobe of lung Qualified Code(s): J18.1 - Lobar pneumonia, unspecified organism (2) Dyspnea Current Visit: Yes Status: Acute Plan: Likely secondary pneumonia versus COPD exacerbation. -patient does not have a diagnosis COPD but he is a almost 2 packs that day smoker for the past 34 years. He may have some underlying COPD changes. He will need outpatient pulmonary function testing -will continue nebulizer treatments, IV steroids along with the IV antibiotics as needed here. Qualifiers: Dyspnea type: shortness of breath Qualified Code(s): R06.02 - Shortness of breath; R06.00 - Dyspnea, unspecified; R06.01 - Orthopnea (3) Anemia Current Visit: Yes Status: Acute Plan: Unspecified etiology. ? Drug/medication related -no active bleeding at this time. CT scan of the abdomen without any acute abnormalities other than enteritis. -will continue to monitor H&H. Transfuse if the less than 7 -will verify home medications once reconciled Qualifiers: Anemia type: unspecified type Qualified Code(s): D64.9 - Anemia, unspecified (4) Thrombocytopenia Current Visit: Yes Status: Acute Plan: Unspecified etiology -this could be related to medication/drug -will monitor and review medications once reconciled. (5) Enteritis Current Visit: Yes Status: Acute Plan: Provide supportive care. -CT scan evident with nonspecific enteritis -currently patient without any GI complaints. Will continue to monitor (6) Hyperlipidemia Current Visit: No Status: Chronic Qualifiers: Hyperlipidemia type: unspecified Qualified Code(s): E78.5 - Hyperlipidemia , unspecified (7) Depression Current Visit: No Status: Chronic Qualifiers: Depression Type: unspecified Qualified Code(s): F32.9 - Major depressive disorder, single episode, unspecified - Plan DVT prophylaxis: Hold chemical anticoagulation due to thrombocytopenia and anemia. GI prophylaxis: Protonix Diet: Heart healthy Disposition: Admit to floor with tele. Pending symptomatic improvement and workup. - Advance Directives Does patient have a Living Will: No Does patient have a Durable POA for Healthcare: No
[2018-12-15 18:28] VITALS: BMI 22.2
[2018-12-15] MEDS ORDERED: INFLUENZA VACCINE (for 3y+) 0.5 ML DOSE IMVAC ONE (19:00)
[2018-12-15] MEDS ORDERED: TRAMADOL HCL 50 MG TAB PO PRN (19:37)
[2018-12-15] MEDS ORDERED: HYDROCODONE/APAP 7.5/325 MG TAB PO PRN (19:38)
[2018-12-15] MEDS: IPRATROPIUM BROM 0.5MG/2.5ML NEB SCH (20:00)
[2018-12-15] MEDS: ALBUTEROL 2.5 MG/3 ML NEB SOL NEB SCH (20:00)
[2018-12-15] MEDS ORDERED: POTASSIUM CL SA 10 MEQ TAB PO ONE (20:00)
[2018-12-15] MEDS: BENZONATATE 100 MG CAP PO PRN (20:16)
[2018-12-15] MEDS ORDERED: CEFTRIAXONE 1 GM/NS 50 ML 1 GM/50 ML BAG IV SCH (21:00)
[2018-12-15 23:41] LABS: Urine Appearance CLEAR; Urine Bilirubin NEGATIVE (NEG); Urine Blood NEGATIVE (NEG); Urine Color YELLOW; Urine Glucose NEGATIVE (NEG); Urine Microscopic Reflex NO UMIC; Urine Protein NEGATIVE (NEG); Urine Urobilinogen 0.2 mg/dL (0.2-1.0); Urine pH 6.5 (5.0-7.0)
[2018-12-16] MEDS: METHYLPREDNISOLONE 40 MG INJ IV SCH ×3 (01:08→17:04)
[2018-12-16] MEDS: IPRATROPIUM BROM 0.5MG/2.5ML NEB SCH ×6 (04:00→20:00)
[2018-12-16] MEDS: ALBUTEROL 2.5 MG/3 ML NEB SOL NEB SCH ×6 (04:00→20:00)
[2018-12-16] MEDS: BENZONATATE 100 MG CAP PO PRN ×2 (04:10→20:57)
[2018-12-16 06:47] LABS: Absolute Lymphocytes (CBC) 0.3 K/uL (0.7-4.9); Basophils % 0.1 % (0-1.3); Hematocrit 28.1 % (39.6-49.0); Lymphocytes % 4.1 % (15.3-44.8); RBC Red Blood Cell Count 3.07 M/uL (4.33-5.43)
[2018-12-16 07:02] LABS: ALT/SGPT 24 U/L (12-78); AST/SGOT 32 U/L (15-37); Albumin 1.9 g/dL (3.4-5.0); Alkaline Phosphatase 157 U/L (45-117); BUN Blood Urea Nitrogen 22 mg/dL (7-18); Bicarbonate 32 mmol/L (21-32); Bilirubin Total 0.3 mg/dL (0.2-1.0); Glucose Level 141 mg/dL (74-106); Magnesium 2.2 mg/dL (1.8-2.4); Phosphorus 2.7 mg/dL (2.5-4.9); Potassium 4.5 mmol/L (3.5-5.1); Protein, Total 6.5 g/dL (6.4-8.2); Sodium Level 136 mmol/L (136-145)
--- NOTE | 2018-12-16 07:10 | RAD REPORT ---
EXAM DESCRIPTION: RAD - Chest Pa And Lat (2 Views) - 12/16/2018 6:18 am CLINICAL HISTORY: PNA COMPARISON: December 15 TECHNIQUE: PA and lateral views of the chest were obtained. FINDINGS: The lungs are fibrotic as a baseline. Left base infiltrate changes are still present. Ther e is patchy opacification lateral mid left lung field that is asymmetric compared to the right. This is believed to be part of the underlying pneumonia. Heart size is normal and central vasculature is within normal limits. No pleural effusion or pneumothorax seen. No acute bony finding noted. No a ortic abnormality. IMPRESSION: Left lung field pneumonia changes are still present not substantially different from galileo or day study.
--- NOTE | 2018-12-16 07:27 | EKG ---
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
[2018-12-16] MEDS: CEFTRIAXONE/SWI 1gm 1 GM/10 ML SYR IV SCH ×2 (09:08→20:59)
[2018-12-16 09:59] LABS: Anisocytosis 1+; Platelet Estimate DECR; Stomatocytes 1+; Urine White Blood Cell Casts OK
[2018-12-16 10:10] LABS: Blood Morphology Comment NOTED (NOT SEEN)
[2018-12-16] MEDS ORDERED: CYCLOBENZAPRINE 10 MG TAB PO PRN (10:28)
[2018-12-16] MEDS ORDERED: TRAZODONE 50 MG TABLET PO PRN (10:28)
[2018-12-16] MEDS: CALCIUM CARB 500MG/VIT D 200 IU TAB PO SCH ×2 (11:37→17:04)
[2018-12-16] MEDS: NICOTINE 21 MG/PAT TD SCH (11:37)
--- NOTE | 2018-12-16 12:32 | P.PN ---
Subjective Date of Service: 12/16/18 Chief Complaint: Shortness of breath Subjective: Improving Patient seen and examined at bedside. family at bedside. Chart reviewed and case discussed with nursing staff. Doing well this morning, improved breathing and cough. No fevers overnight. No acute events noted overnight. No complaints this morning. Review of Systems 10-point ROS is otherwise unremarkable Physical Examination - Vital Signs Temperature: 97.1 F Blood Pressure: 132/74 Pulse: 65 Respirations: 18 Pulse Ox (%): 97 - Physical Exam General: Alert, In no apparent distress, Oriented x3 HEENT: Atraumatic, PERRLA, EOMI Neck: Supple, JVD not distended Respiratory: Clear to auscultation bilaterally, Normal air movement Cardiovascular: Regular rate/rhythm, Normal S1 S2 Gastrointestinal: Normal bowel sounds, No tenderness Musculoskeletal: No tenderness Integumentary: No rashes Neurological: Normal speech, Normal tone, Normal affect Lymphatics: No axilla or inguinal lymphadenopathy - Studies Laboratory Data (last 24 hrs) 12/15/18 15:18: WBC 10.1, Hgb 9.8 L, Hct 29.5 L, Plt Count 90 L 12/15/18 15:18: Sodium 134 L, Potassium 3.6, BUN 21 H, Creatinine 0.95, Glucose 102, Total Bilirubin 0.5, AST 35, ALT 20, Alkaline Phosphatase 159 H, Lipase 81 Microbiology Data (last 24 hrs): 12/15/18 15:36 Nasopharnyx Influenza Type A Antigen Screen - Final 12/15/18 15:36 Nasopharnyx Influenza Type B Antigen Screen - Final Assessment And Plan - Current Problems (Diagnosis) (1) Pneumonia Current Visit: Yes Status: Acute Plan: Patient with left basilar pneumonia on chest x-ray. -failed outpatient therapy -continue IV antibiotics with Rocephin and azithromycin -cultures pending -repeat chest x-ray i without any changes -supplemental oxygen as needed, wean as tolerated. Now weaned off of oxygen -IV fluids, maintenance dose -will get a CT chest and pulmonology consult if no improvement Qualifiers: Pneumonia type: due to unspecified organism Laterality: left Lung location: lower lobe of lung Qualified Code(s): J18.1 - Lobar pneumonia, unspecified organism (2) Dyspnea Current Visit: Yes Status: Acute Plan: Likely secondary pneumonia versus COPD exacerbation. -patient does not have a diagnosis COPD but he is a almost 2 packs that day smoker for the past 34 years. He may have some underlying COPD changes. He will need outpatient pulmonary function testing -will continue nebulizer treatments, IV steroids along with the IV antibiotics as needed here. Qualifiers: Dyspnea type: shortness of breath Qualified Code(s): R06.02 - Shortness of breath; R06.00 - Dyspnea, unspecified; R06.01 - Orthopnea (3) Anemia Current Visit: Yes Status: Acute Plan: Unspecified etiology. -no active bleeding at this time. CT scan of the abdomen without any acute abnormalities other than enteritis. -will continue to monitor H&H. Transfuse if the less than 7. H&H continues to remain stable at this time Qualifiers: Anemia type: unspecified type Qualified Code(s): D64.9 - Anemia, unspecified (4) Thrombocytopenia Current Visit: Yes Status: Acute Plan: Unspecified etiology -will platelets stable at this time. He may need outpatient workup with hematology (5) Enteritis Current Visit: Yes Status: Acute Plan: Provide supportive care. -CT scan evident with nonspecific enteritis -currently patient without any GI complaints. Will continue to monitor (6) Hyperlipidemia Current Visit: No Status: Chronic Qualifiers: Hyperlipidemia type: unspecified Qualified Code(s): E78.5 - Hyperlipidemia , unspecified (7) Depression Current Visit: No Status: Chronic Qualifiers: Depression Type: unspecified Qualified Code(s): F32.9 - Major depressive disorder, single episode, unspecified - Plan DVT prophylaxis: Hold chemical anticoagulation due to thrombocytopenia and anemia. GI prophylaxis: Protonix Diet: Heart healthy Disposition: Pending symptomatic improvement and workup. Anticipate discharge home in the next 24 hr of clinically improved.
[2018-12-16] MEDS ORDERED: AZITHROMYCIN IV 500 MG in NA CHLORIDE 0.9% 250 ML IVPB SCH (17:00)
[2018-12-16] MEDS: PANTOPRAZOLE 40MG TABLET PO SCH (20:57)
[2018-12-16] MEDS: PREGABALIN 75 MG CAP PO SCH (20:57)
[2018-12-16] MEDS: PREGABALIN 150 MG CAP PO SCH (20:57)
[2018-12-16] MEDS ORDERED: ATORVASTATIN 10 MG TAB PO SCH (21:00)
[2018-12-16] MEDS ORDERED: PREGABALIN 225 MG PO SCH (21:00)
[2018-12-16 23:12] VITALS: O2SAT 98
[2018-12-17] MEDS: METHYLPREDNISOLONE 40 MG INJ IV SCH ×2 (00:17→09:15)
[2018-12-17] MEDS: ALBUTEROL 2.5 MG/3 ML NEB SOL NEB SCH ×3 (04:00→08:00)
[2018-12-17] MEDS: IPRATROPIUM BROM 0.5MG/2.5ML NEB SCH ×3 (04:00→08:00)
[2018-12-17 04:20] LABS: Absolute Lymphocytes (CBC) 0.3 K/uL (0.7-4.9); Hematocrit 25.9 % (39.6-49.0); Lymphocytes % 3.1 % (15.3-44.8); MPV 9.8 fL (7.6-11.3); RBC Red Blood Cell Count 2.84 M/uL (4.33-5.43)
[2018-12-17 04:40] LABS: ALT/SGPT 26 U/L (12-78); AST/SGOT 31 U/L (15-37); Albumin 1.8 g/dL (3.4-5.0); Alkaline Phosphatase 141 U/L (45-117); BUN Blood Urea Nitrogen 21 mg/dL (7-18); Bicarbonate 29 mmol/L (21-32); Bilirubin Total 0.2 mg/dL (0.2-1.0); Glucose Level 131 mg/dL (74-106); Potassium 4.1 mmol/L (3.5-5.1); Protein, Total 5.9 g/dL (6.4-8.2); Sodium Level 138 mmol/L (136-145)
[2018-12-17] MEDS ORDERED: RIBOFLAVIN 100 MG PO SCH (09:00)
[2018-12-17] MEDS ORDERED: ESCITALOPRAM 20 MG TAB PO SCH (09:00)
[2018-12-17] MEDS ORDERED: DULOXETINE 30 MG CAP PO SCH (09:00)
[2018-12-17] MEDS ORDERED: LEFLUNOMIDE PO SCH (09:00)
[2018-12-17] MEDS ORDERED: THIAMINE HCL 100 MG TABLET PO SCH (09:00)
[2018-12-17] MEDS ORDERED: FINASTERIDE 5 MG TAB PO SCH (09:00)
[2018-12-17] MEDS: CALCIUM CARB 500MG/VIT D 200 IU TAB PO SCH (09:14)
[2018-12-17] MEDS: NICOTINE 21 MG/PAT TD SCH (09:15)
[2018-12-17] MEDS: PREGABALIN 75 MG CAP PO SCH (09:15)
[2018-12-17] MEDS: PANTOPRAZOLE 40MG TABLET PO SCH (09:15)
[2018-12-17] MEDS: CEFTRIAXONE/SWI 1gm 1 GM/10 ML SYR IV SCH (09:15)
[2018-12-17] MEDS: PREGABALIN 150 MG CAP PO SCH (09:15)
[2018-12-17 09:32] VITALS: BP 122/73; TEMP 96.9
--- NOTE | 2018-12-26 14:36 | P.DS ---
Admission Date: 12/15/18 Discharge Date: 12/17/18 Disposition: ROUTINE DISCHARGE Discharge Condition: GOOD Reason for Admission: Shortness of breath - Problems (1) Pneumonia Status: Acute Qualifiers: Pneumonia type: due to unspecified organism Laterality: left Lung location: lower lobe of lung Qualified Code(s): J18.1 - Lobar pneumonia, unspecified organism (2) Dyspnea Status: Acute Qualifiers: Dyspnea type: shortness of breath Qualified Code(s): R06.02 - Shortness of breath; R06.00 - Dyspnea, unspecified; R06.01 - Orthopnea (3) Anemia Status: Acute Qualifiers: Anemia type: unspecified type Qualified Code(s): D64.9 - Anemia, unspecified (4) Thrombocytopenia Status: Acute (5) Enteritis Status: Acute (6) Hyperlipidemia Status: Chronic Qualifiers: Hyperlipidemia type: unspecified Qualified Code(s): E78.5 - Hyperlipidemia , unspecified (7) Depression Status: Chronic Qualifiers: Depression Type: unspecified Qualified Code(s): F32.9 - Major depressive disorder, single episode, unspecified Brief History of Present Illness: This is a 63-year-old female with past medical history of hyperlipidemia, depression who presents to the emergency room with fever, diarrhea, cough with phlegm and increasing shortness of breath. Per patient, for the past 2 to 2-1/ 2 weeks he has been having these symptoms of fever cough with phlegm and increased shortness of breath. He saw his primary care physician 1 week ago and complete the course of antibiotics. This antibiotic course did not help of feel any better. Since then he has been having progressively worsening shortness of breath along with nausea as well. He denies any chest pain, dizziness, vision changes, GI or complaints. He denies any hemoptysis, blood in the stool or active bleeding anywhere else. He is a current smoker, 1.5-2 packs per day for the past 34 years. He stated that he stops for 13 years in the middle and started again in 6 months ago. He denies any alcohol or any other drugs. In the ER, blood pressure was 94/67, heart rate of 91, respirations of 16, afebrile at 98.4 with saturations of 91% on room air. His labs were remarkable for hemoglobin decreased at 9.8, platelets 90, Procalamine did 2.97 with normal lactic acid. Chest x-ray was evident of left base pneumonia. An abdominal CT was also done to evaluate for bleeding due to his low hemoglobin levels. He was found to have some nonspecific enteritis. In the ER, he received Rocephin, azithromycin, Solu-Medrol and nebulizer treatments. At the time of my exam, patient was hemodynamically stable, in no acute distress and alert oriented x3. Hospital Course: Patient with left basilar pneumonia on chest x-ray who failed outpatient therapy. Provided IV antibiotics with Rocephin and azithromycin. Cultures remained negative. Repeat C-xray without changes. patient does not have a diagnosis COPD but he is a almost 2 packs that day smoker for the past 34 years. He may have some underlying COPD changes. He will need outpatient pulmonary function testing. Provided with IV steroids and oxygen as needed. Weaned off of oxygen prior to discharge. Prior to discharge, symptoms improved , hemodynamically stable, and labs stable. He did well overall. His diagnosis/ treatment plan was explained to him, all questions were answered and he verbalized understanding. He was then discharged home in a safe and stable manner. Vital Signs/Physical Exam: Temp Pulse Resp BP Pulse Ox 96.9 F 74 16 122/73 92 12/17/18 08:00 12/17/18 08:00 12/17/18 08:00 12/17/18 08:00 12/17/18 08:00 General: Alert, In no apparent distress HEENT: Atraumatic, PERRLA, EOMI Neck: Supple, JVD not distended Respiratory: Clear to auscultation bilaterally, Normal air movement Cardiovascular: Regular rate/rhythm, Normal S1 S2 Gastrointestinal: Normal bowel sounds, No tenderness Musculoskeletal: No tenderness Integumentary: No rashes Neurological: Normal speech, Normal tone, Normal affect Lymphatics: No axilla or inguinal lymphadenopathy Laboratory Data at Discharge: WBC 9.5 K/uL (4.3-10.9) D 12/17/18 03:38 Hgb 8.8 g/dL (13.6-17.9) L 12/17/18 03:38 Hct 25.9 % (39.6-49.0) L 12/17/18 03:38 Plt Count 94 K/uL (152-406) L 12/17/18 03:38 Sodium 138 mmol/L (136-145) 12/17/18 03:38 Potassium 4.1 mmol/L (3.5-5.1) 12/17/18 03:38 BUN 21 mg/dL (7-18) H 12/17/18 03:38 Creatinine 0.71 mg/dL (0.55-1.3) 12/17/18 03:38 Glucose 131 mg/dL (74-106) H 12/17/18 03:38 Phosphorus 2.7 mg/dL (2.5-4.9) 12/16/18 06:30 Magnesium 2.2 mg/dL (1.8-2.4) 12/16/18 06:30 Total Bilirubin 0.2 mg/dL (0.2-1.0) 12/17/18 03:38 AST 31 U/L (15-37) 12/17/18 03:38 ALT 26 U/L (12-78) 12/17/18 03:38 Alkaline Phosphatase 141 U/L (45-117) H 12/17/18 03:38 Lipase 81 U/L (73-393) 12/15/18 15:18 Home Medications: Atorvastatin Calcium [Lipitor*] 10 mg PO BEDTIME 12/15/18 Calcium Citrate/Vitamin D3 [Calcium Citrate - Vit D Caplet] 1 tab PO TIDWM 12/15 Cyclobenzaprine HCl 10 mg PO TIDP PRN 12/15/18 Duloxetine HCl 2 cap PO DAILY 12/15/18 Escitalopram [Lexapro*] 20 mg PO DAILY 12/15/18 Finasteride [Proscar*] 5 mg PO DAILY 12/15/18 Leflunomide 2 tab PO DAILY 12/15/18 Loratadine 10 mg PO DAILY 12/15/18 Meloxicam 15 mg PO DAILY 12/15/18 Omeprazole 20 mg PO BID 12/15/18 Pregabalin 225 mg PO BID 12/15/18 Riboflavin [Vitamin B-2] 100 mg PO DAILY 12/15/18 Thiamine HCl 200 mg PO DAILY 12/15/18 Trazodone [Desyrel*] 200 mg PO BEDTIME PRN PRN 12/15/18 Vit C/E/Zn/Coppr/Lutein/Zeaxan [Preservision Areds 2 Softgel] 1 cap PO DAILY Vitamin B Complex [Vitamin B Complex*] 1 cap PO DAILY 12/15/18 Azithromycin 500 mg PO DAILY #7 tablet 12/17/18 predniSONE [Deltasone*] 10 mg PO BID #14 tab 12/17/18 New Medications: Azithromycin 500 mg PO DAILY #7 tablet predniSONE [Deltasone*] 10 mg PO BID #14 tab Patient Discharge Instructions: Please follow up with your primary care physician in 2-3 days. [facility]. Return to the Emergency room for worsening symptoms. Diet: Regular Activity: Ad dantia Time spent managing pt's care (in minutes): 55
== END 2018-12-17 11:32 | disposition home or self-care (01) | DRG 195 ==
LOC: ER 13:21 → ERHOLD 17:41 → 4TH 18:11
PROVIDERS: ADMIT Family Medicine; ATTEND Family Medicine
DX: J18.9 Pneumonia, unspecified organism (principal); D64.9 Anemia, unspecified; D69.6 Thrombocytopenia, unspecified; K52.9 Noninfective gastroenteritis and colitis, unspecified; E78.5 Hyperlipidemia, unspecified; F32.9 Major depressive disorder, single episode, unspecified; F17.210 Nicotine dependence, cigarettes, uncomplicated
CPT/HCPCS: 36415; 71045; 71046; 74177; 80048; 80053; 80076; 81003; 83605; 83690; 83735; 83880; 84100; 84145; 84484; 85025; 87040; 87804; 93005; 94640; 94760; 96365; 96366; 96375; 99285; J0456; J0696; J2920; J2930; J7030; Q9967

== ENCOUNTER 2019-01-06 11:18 | Observation (INO) | payer OTHER ==
[2019-01-06] MEDS ORDERED: ALBUTEROL 2.5 MG/3 ML NEB SOL ONE (11:54)
[2019-01-06] MEDS ORDERED: NA CHLORIDE 0.9% 0 ML ONE (11:54)
[2019-01-06] MEDS ORDERED: IPRATROPIUM BROM 0.5MG/2.5ML ONE (11:54)
--- NOTE | 2019-01-06 12:47 | RAD REPORT ---
EXAM DESCRIPTION: Janie Single View01/06/2019 12:39 pm CLINICAL HISTORY: cough COMPARISON: December 16, 2018 FINDINGS: Mild to moderate bilateral interstitial lung opacities without significant change The heart is normal size IMPRESSION: Mild to moderate bilateral interstitial lung opacities may indicate an atypical infectio n or pneumonitis
[2019-01-06 12:57] LABS: Absolute Lymphocytes (CBC) 0.6 K/uL (0.7-4.9); Basophils % 0.5 % (0-1.3); Hematocrit 32.3 % (39.6-49.0); Lymphocytes % 12.2 % (15.3-44.8); MPV 10.7 fL (7.6-11.3); RBC Red Blood Cell Count 3.54 M/uL (4.33-5.43)
[2019-01-06 13:17] LABS: Protime INR 1.06
[2019-01-06 13:21] LABS: ALT/SGPT 13 U/L (12-78); AST/SGOT 8 U/L (15-37); Albumin 2.4 g/dL (3.4-5.0); Alkaline Phosphatase 166 U/L (45-117); BUN Blood Urea Nitrogen 19 mg/dL (7-18); Bicarbonate 29 mmol/L (21-32); Bilirubin Direct 0.2 mg/dL (0-0.2); Bilirubin Total 0.5 mg/dL (0.2-1.0); Creatine Phosphokinase 27 U/L (39-308); Glucose Level 95 mg/dL (74-106); Lipase 144 U/L (73-393); Magnesium 2.2 mg/dL (1.8-2.4); NT PRO-BNP 92 pg/mL (<125); Potassium 3.3 mmol/L (3.5-5.1); Protein, Total 6.9 g/dL (6.4-8.2); Sodium Level 136 mmol/L (136-145); Troponin (Emerg Dept Use Only) < 0.02 ng/mL (0.0-0.045)
--- NOTE | 2019-01-06 13:51 | ER ---
Nurse's Notes [facility] Name: Surendra Bates Age: 63 yrs Sex: Male : 1955 Arrival Date: 01/06/2019 Time: 11:24 Bed 20 Private MD: Diagnosis: Syncope and collapse;acute bilateral interstitial pneumonia;hypokalemia;orthostatic hypotension Presentation: 01/06 11:25 Presenting complaint: EMS states: [facility]. Transition of care: patient was bp received from another setting of care (ambulatory primary care physician practice), [facility]. Onset of symptoms was January 06, 2019 at 11:00. Risk Assessment: Do you want to hurt yourself or someone else? Patient reports no desire to harm self or others. Initial Sepsis Screen: Does the patient meet any 2 criteria? No. Patient's initial sepsis screen is negative. Does the patient have a suspected source of infection? Yes: Productive cough/pneumonia. Care prior to arrival: IV initiated. 20 GA, in the left antecubital area. 11:25 Method Of Arrival: EMS: [facility] bp 11:25 Acuity: DO 2 bp Triage Assessment: 11:26 General: Appears in no apparent distress. comfortable, slender, Behavior is calm, bp cooperative, appropriate for age. Pain: Denies pain. EENT: No deficits noted. Neuro: Level of Consciousness is awake, alert, obeys commands, Oriented to person, place, time, situation, Appropriate for age Reports a syncopal episode. Cardiovascular: Rhythm is sinus rhythm. Respiratory: No deficits noted. GI: No signs and/or symptoms were reported involving the gastrointestinal system. : No signs and/or symptoms were reported regarding the genitourinary system. Derm: No deficits noted. Musculoskeletal: No deficits noted. Historical: - Allergies: 11:26 No Known Allergies; bp - PMHx: 11:26 Myocardial infarction; bp - PSHx: 11:26 Heart stents; bp - Immunization history:: Adult Immunizations up to date. - Social history:: Smoking status: Patient/guardian denies using tobacco. - Ebola Screening: : No symptoms or risks identified at this time. - Family history:: not pertinent. - Hospitalizations: : The patient was recently seen at [facility], and discharged 3 week(s) ago, for pna. Screenin:31 Abuse screen: Denies threats or abuse. Denies injuries from another. Nutritional bp screening: No deficits noted. Tuberculosis screening: No symptoms or risk factors identified. Fall Risk Fall in past 12 months (25 points). No secondary diagnosis (0 pts). IV access (20 points). Ambulatory Aid- None/Bed Rest/Nurse Assist (0 pts). Gait- Normal/Bed Rest/Wheelchair (0 pts) Mental Status- Oriented to own ability (0 pts). Total George Fall Scale indicates High Risk Score (45 or more points). Fall prevention measures have been instituted. Side Rails Up X 2 Placed Close to Nursing Station Frequent Obs/Assessments Occuring Family Present and informed to notify staff if the need to leave the bedside As available patient and family educated on Fall Prevention Program and Strategies. Assessment: 11:30 General: SEE TRIAGE NOTE. Neuro: Level of Consciousness is awake, alert, obeys bp commands, Oriented to person, place, time, situation, Appropriate for age. Cardiovascular: Rhythm is sinus rhythm. 12:52 Reassessment: PHLEBOTOMY CONTACTED FOR BLOOD CX. bp 13:43 Reassessment: MEDICATIONS REQUESTED FROM PHARMACY. bp 16:23 Reassessment: Spoke with Dr. Polo regarding admission orders. Dr. Polo states to ss order MRI stroke protocol now and to have patient stay in ER until MRI results are back. 16:52 Reassessment: ADMIT COMPLETE, MRI PENDING. bp Vital Signs: 11:26 BP 123 / 72; Pulse 78; Resp 24; Temp 97.7; Pulse Ox 99% on R/A; Weight 76.2 kg; Height bp 6 ft. 4 in. (193.04 cm); 11:50 BP 137 / 69 Supine; Pulse 78; lt1 11:53 BP 93 / 67 Standing; Pulse 100; bp 12:52 BP 121 / 71; Pulse 77; Resp 22; Pulse Ox 96% ; bp 13:31 BP 116 / 70; Pulse 82; Resp 23; Temp 97.7(O); Pulse Ox 93% ; lt1 14:30 BP 104 / 55; Pulse 87; Resp 21; Pulse Ox 92% on R/A; bp 15:30 BP 90 / 46; Pulse 80; Resp 19; Pulse Ox 97% ; bp 16:30 BP 122 / 68; Pulse 74; Resp 19; Pulse Ox 98% ; bp 11:26 Body Mass Index 20.45 (76.20 kg, 193.04 cm) bp ED Course: 11:24 Patient arrived in ED. bp 11:26 Triage completed. bp 11:26 Arm band placed on. bp 11:29 Jose Antonio Marti MD is Attending Physician. wa 11:30 Maintain EMS IV. Dressing intact. Good blood return noted. Site clean \T\ dry. Gauge \T\ bp site: 20 GAUGE LEFT AC. 11:31 Patient has correct armband on for positive identification. Bed in low position. Call bp light in reach. Side rails up X2. Adult w/ patient. 11:48 Jeremiah Pena, LELIA is Primary Nurse. bp 11:51 EKG done, by information technology director. reviewed by Jose Antonio Marti MD. at1 12:15 Initial lab(s) drawn, by me, sent to lab. First set of blood cultures drawn by me. lt1 12:18 Inserted saline lock: 20 gauge in right antecubital area, using aseptic technique. lt1 12:41 XRAY CXR (1 view) In Process Unspecified. EDMS 13:13 Served as a extract wringer during rectal exam. Patient admitted, IV remains in place. ss 13:49 Niharika Polo MD is Hospitalizing Provider. wa 15:32 Head Brain Wo Cont CT In Process Unspecified. EDMS Administered Medications: 12:05 Drug: Albuterol 2.5 mg Route: Inhalation; bp 12:05 Drug: AtroVENT Aerosol 0.5 mg Route: Inhalation; bp 12:05 Drug: NS 0.9% 1000 ml Route: IV; Rate: 1 bolus; Site: right antecubital; bp 14:17 Follow up: IV Status: Completed infusion; IV Intake: 1000ml bp 13:30 Drug: Zithromax 500 mg Route: IVPB; Infused Over: 1 hrs; Site: right antecubital; bp 17:25 Follow up: IV Status: Completed infusion; IV Intake: 250ml bp 14:10 Drug: Rocephin - (cefTRIAXone) 2 grams Route: IVPB; Infused Over: 30 mins; Site: right bp antecubital; 17:26 Follow up: IV Status: Completed infusion; IV Intake: 50ml bp 14:17 Drug: Potassium Effervescent Tablet 50 mEq Route: PO; bp 17:25 Follow up: Response: No adverse reaction bp Point of Care Testing: Guaiac: 13:15 Stool Guaiac: Negative; Stool Hemoccult Control: Pass; ss Intake: 14:17 IV: 1000ml; Total: 1000ml. bp 17:25 IV: 250ml; Total: 1250ml. bp 17:26 IV: 50ml; Total: 1300ml. bp Outcome: 13:50 Decision to Hospitalize by Provider. nd 16:56 Condition: stable bp 16:56 Instructed on the need for admit. 17:24 Admitted to Med/surg accompanied by tech, via stretcher, room 410, with chart, Report bp called to MANJINDER ROWELL 18:07 Patient left the ED. bp Signatures: Dispatcher [employer] EDMS Yesenia Whatley RN RN Alisha Arce, insurance salesman EKG Tat1 Jose Antonio Marti MD MD wa Peltier, Brian, RN RN bp Tran, Leah lt1 Corrections: (The following items were deleted from the chart) 11:32 11:26 BP 120 / 102; Pulse 78bpm; Resp 24bpm; Pulse Ox 99%; 76.2 kg; Height 6 ft. 4 in.; bp BMI: 20.4; bp 12:11 11:53 BP 93 / 67; Pulse 100bpm; lt1 bp
--- NOTE | 2019-01-06 13:51 | EDPHYS ---
Physician Documentation [facility] Name: Surendra Bates Age: 63 yrs Sex: Male : 1955 Arrival Date: 01/06/2019 Time: 11:24 Bed 20 Private MD: ED Physician Jose Antonio Marti HPI: 01/06 13:27 This 63 yrs old Male presents to ER via EMS with complaints of Syncope. wa 13:27 The patient has experienced syncope, collapsed. Onset: The symptoms/episode wa began/occurred just prior to arrival. Duration: This was a single episode, that lasted 30 second(s). Context: the episode(s) was witnessed, by a bystander, occurred [place] [facility], while standing, occurred while the patient was standing, Just prior to the episode the patient experienced lightheadedness. Associated injury: The patient did not suffer any apparent associated injury. Associated signs and symptoms: Pertinent positives: chest pain, diarrhea, lightheadedness, shortness of breath, weakness, Pertinent negatives:. Current symptoms: chest tightness, SOB, weakness. The patient has experienced similar episodes in the past, several times. The patient has not recently seen a physician. pt was at [place] for doctor's appt and had syncope. states got lightheaded prior to episode. does not remember the event details. several episodes related to standing x 2 weeks. admits to chest tightness, cough, and SOB. Had a PNA 3 weeks ago. states thinks pna still there. has not seen a doctor for this. admits to diarrhea. admits to it been black on a few occasions. . Historical: - Allergies: 11:26 No Known Allergies; bp - PMHx: 11:26 Myocardial infarction; bp - PSHx: 11:26 Heart stents; bp - Immunization history:: Adult Immunizations up to date. - Social history:: Smoking status: Patient/guardian denies using tobacco. - Ebola Screening: : No symptoms or risks identified at this time. - Family history:: not pertinent. - Hospitalizations: : The patient was recently seen at [facility], and discharged 3 week(s) ago, for pna. ROS: 13:37 Constitutional: Negative for fever, chills, and weight loss, Eyes: Negative for injury, wa pain, redness, and discharge, ENT: Negative for injury, pain, and discharge, Neck: Negative for injury, pain, and swelling, Back: Negative for injury and pain, : Negative for injury, bleeding, discharge, and swelling, MS/Extremity: Negative for injury and deformity, Skin: Negative for injury, rash, and discoloration, Psych: Negative for depression, anxiety, suicide ideation, homicidal ideation, and hallucinations. 13:37 Cardiovascular: Positive for chest pain, Negative for palpitations, paroxysmal nocturnal dyspnea. 13:37 Respiratory: Positive for cough, shortness of breath. 13:37 Abdomen/GI: Positive for diarrhea, Negative for vomiting. 13:37 Neuro: Positive for dizziness, syncope, weakness. Exam: 13:38 Abdomen/GI: Inspection: abdomen appears normal, Bowel sounds: normal, in all quadrants, wa Palpation: abdomen is soft and non-tender, in all quadrants. 13:38 Head/Face: Normocephalic, atraumatic. Eyes: Pupils equal round and reactive to light, extra-ocular motions intact. Lids and lashes normal. Conjunctiva and sclera are non-icteric and not injected. Cornea within normal limits. Periorbital areas with no swelling, redness, or edema. ENT: Nares patent. No nasal discharge, no septal abnormalities noted. Tympanic membranes are normal and external auditory canals are clear. Oropharynx with no redness, swelling, or masses, exudates, or evidence of obstruction, uvula midline. Mucous membranes moist. Neck: Trachea midline, no thyromegaly or masses palpated, and no cervical lymphadenopathy. Supple, full range of motion without nuchal rigidity, or vertebral point tenderness. No Meningismus. Chest/axilla: Normal chest wall appearance and motion. Nontender with no deformity. No lesions are appreciated. Back: No spinal tenderness. No costovertebral tenderness. Full range of motion. MS/ Extremity: Pulses equal, no cyanosis. Neurovascular intact. Full, normal range of motion. 13:38 Constitutional: The patient appears alert, pale 13:38 Cardiovascular: Rate: normal, Rhythm: regular, Pulses: no pulse deficits are appreciated, Heart sounds: normal, Edema: is not appreciated, JVD: is not appreciated. 13:38 Respiratory: the patient does not display signs of respiratory distress, Respirations: normal, Breath sounds: coarse BS bilaterally. . 13:40 Abdomen/GI: Inspection: abdomen appears normal, Bowel sounds: normal, in all quadrants, wa Palpation: abdomen is soft and non-tender, in all quadrants, Rectal exam: Stool: guaiac negative. 13:40 Neuro: Orientation: is normal, Mentation: is normal, Cranial nerves: grossly normal, Motor: is normal, noted with orthostatic hypotension when stands. see nursing notes. Vital Signs: 11:26 BP 123 / 72; Pulse 78; Resp 24; Temp 97.7; Pulse Ox 99% on R/A; Weight 76.2 kg; Height bp 6 ft. 4 in. (193.04 cm); 11:50 BP 137 / 69 Supine; Pulse 78; lt1 11:53 BP 93 / 67 Standing; Pulse 100; bp 12:52 BP 121 / 71; Pulse 77; Resp 22; Pulse Ox 96% ; bp 13:31 BP 116 / 70; Pulse 82; Resp 23; Temp 97.7(O); Pulse Ox 93% ; lt1 14:30 BP 104 / 55; Pulse 87; Resp 21; Pulse Ox 92% on R/A; bp 15:30 BP 90 / 46; Pulse 80; Resp 19; Pulse Ox 97% ; bp 16:30 BP 122 / 68; Pulse 74; Resp 19; Pulse Ox 98% ; bp 11:26 Body Mass Index 20.45 (76.20 kg, 193.04 cm) bp MDM: 11:29 Patient medically screened. wa 13:42 Differential Diagnosis: aortic aneurysm, cardiac arrhythmia, cerebrovascular accident, wa idiopathic syncope, transient ischemic attack, vasovagal episode, orthostasis. Data reviewed: vital signs, nurses notes. Test interpretation: by ED physician or midlevel provider: EKG: HR 81. sinus. nml axis. diffuse, non-specific ST-T changes. CXR: bilateral interstitial pneumonia. 13:47 Response to treatment: the patient's symptoms have mildly improved after treatment. ED wa course: fluid bolus given. nebs for cough and SOB. abx for pna. po kcl for low K. will admit for pulm and cardiology consult. 13:50 Test interpretation: by ED physician or midlevel provider: labs noted for low plts at wa 63. low K at 3.3. anemia at 11.1/32.2 . Physician consultation: Niharika Polo MD. 13:53 ED course: repeated syncope. will need echo and cardiology consult. will also need wa pulmonology for eval. 15:53 Test interpretation: by ED physician or midlevel provider: CT brain: R lacuna infarct or (old). 01/06 11:46 Order name: Blood Culture Adult (2) or 01/06 11:46 Order name: BMP; Complete Time: 13:45 or 01/06 11:46 Order name: CBC with Diff or 01/06 11:46 Order name: CPK; Complete Time: 13:46 or 01/06 11:46 Order name: Hepatic Function; Complete Time: 13:46 or 01/06 11:46 Order name: Lipase; Complete Time: 13:46 or 01/06 11:46 Order name: Magnesium; Complete Time: 13:46 or 01/06 11:46 Order name: NT PRO-BNP; Complete Time: 13:46 or 01/06 11:46 Order name: PT-INR; Complete Time: 13:46 or 01/06 11:46 Order name: Ptt, Activated; Complete Time: 13:46 or 01/06 11:46 Order name: Troponin (emerg Dept Use Only); Complete Time: 13:46 or 01/06 11:47 Order name: Urine Microscopic Only or 01/06 13:13 Order name: Occult Blood--Ancillary 01/06 14:54 Order name: CBC Smear Scan [facility] 01/06 11:46 Order name: XRAY CXR (1 view); Complete Time: 13:01 or 01/06 11:46 Order name: EKG; Complete Time: 11:47 or 01/06 11:46 Order name: Cardiac monitoring; Complete Time: 11:49 or 01/06 11:46 Order name: EKG - Nurse/Tech; Complete Time: 11:49 or 01/06 11:46 Order name: IV Saline Lock; Complete Time: 11:51 or 01/06 11:46 Order name: Labs collected and sent; Complete Time: 12:19 or 01/06 15:08 Order name: Head Brain Wo Cont CT; Complete Time: 15:52 or 01/06 16:22 Order name: MRI Stroke Protocol 01/06 16:28 Order name: CONS Physician Consult [facility] 01/06 16:28 Order name: CONS Physician Consult [facility] 01/06 11:46 Order name: O2 Per Protocol; Complete Time: 11:49 or 01/06 11:46 Order name: O2 Sat Monitoring; Complete Time: 11:49 or 01/06 11:48 Order name: Orthostatics; Complete Time: 11:55 or Administered Medications: 12:05 Drug: Albuterol 2.5 mg Route: Inhalation; bp 12:05 Drug: AtroVENT Aerosol 0.5 mg Route: Inhalation; bp 12:05 Drug: NS 0.9% 1000 ml Route: IV; Rate: 1 bolus; Site: right antecubital; bp 14:17 Follow up: IV Status: Completed infusion; IV Intake: 1000ml bp 13:30 Drug: Zithromax 500 mg Route: IVPB; Infused Over: 1 hrs; Site: right antecubital; bp 17:25 Follow up: IV Status: Completed infusion; IV Intake: 250ml bp 14:10 Drug: Rocephin - (cefTRIAXone) 2 grams Route: IVPB; Infused Over: 30 mins; Site: right bp antecubital; 17:26 Follow up: IV Status: Completed infusion; IV Intake: 50ml bp 14:17 Drug: Potassium Effervescent Tablet 50 mEq Route: PO; bp 17:25 Follow up: Response: No adverse reaction bp Point of Care Testing: Guaiac: 13:15 Stool Guaiac: Negative; Stool Hemoccult Control: Pass; ss Disposition: 01/06/19 13:50 Hospitalization ordered by Niharika Polo for Inpatient Admission. Preliminary diagnosis are Syncope and collapse, acute bilateral interstitial pneumonia, hypokalemia, orthostatic hypotension. - Bed requested for Telemetry/MedSurg (Inpatient). - Status is Inpatient Admission. bp - Condition is Stable. - Problem is new. - Symptoms have improved. UTI on Admission? No Signatures: Dispatcher [employer] EDMS Padmini Luke William, MD MD or Chris To RN RN ja1 Jeremiah Pena RN RN bp Corrections: (The following items were deleted from the chart) 11:51 11:50 Orthostatics ordered. bp bp 16:47 13:50 Hospitalization Ordered by Niharika Polo MD for Inpatient Admission. Preliminary ja1 diagnosis is Syncope and collapse; acute bilateral interstitial pneumonia; hypokalemia; orthostatic hypotension. Bed requested for Telemetry/MedSurg (Inpatient). Status is Inpatient Admission. Condition is Stable. Problem is new. Symptoms have improved. UTI on Admission? No. wa 16:47 16:47 01/06/2019 13:50 Hospitalization Ordered by Niharika Polo MD for Inpatient bd Admission. Preliminary diagnosis is Syncope and collapse; acute bilateral interstitial pneumonia; hypokalemia; orthostatic hypotension. Bed requested for Telemetry/MedSurg (Inpatient). Status is Inpatient Admission. Condition is Stable. Problem is new. Symptoms have improved. UTI on Admission? No. ja1 18:07 16:47 01/06/2019 13:50 Hospitalization Ordered by Niharika Polo MD for Inpatient bp Admission. Preliminary diagnosis is Syncope and collapse; acute bilateral interstitial pneumonia; hypokalemia; orthostatic hypotension. Bed requested for Telemetry/MedSurg (Inpatient). Status is Inpatient Admission. Condition is Stable. Problem is new. Symptoms have improved. UTI on Admission? No. bd
[2019-01-06] MEDS ORDERED: AZITHROMYCIN IV 500 MG in NA CHLORIDE 0.9% 250 ML IVPB ONE (14:00)
[2019-01-06] MEDS ORDERED: CEFTRIAXONE/SWI 2gm 2 GM/20 ML SYR IV ONE (14:00)
[2019-01-06] MEDS ORDERED: NA CHLORIDE 0.9% 100 ML IV ONE (14:09)
[2019-01-06] MEDS ORDERED: POTASSIUM 25 MEQ EFFERV TAB ONE (14:09)
[2019-01-06 14:54] LABS: Blood Morphology Comment NOT SEEN (NOT SEEN); Platelet Estimate DECR; Platelets, Giant PRESENT; Urine White Blood Cell Casts OK
--- NOTE | 2019-01-06 15:48 | RAD REPORT ---
EXAM DESCRIPTION: CT - Head Brain Wo Cont - 01/06/2019 3:33 pm CLINICAL HISTORY: syncope COMPARISON: None TECHNIQUE: Computed axial tomography of the head was obtained. IV contrast was not requested. All CT scans are performed using dose optimization technique as appropriate and may include automated exposure control or mA/KV adjustment according to patient size. FINDINGS: An intracranial bleed is not seen . The ventricles are normal in caliber. No extra-axial fluid collection is noted. Small low-density area right caudate/ internal capsule. . Fluid within the sinuses/ mastoids is not seen. IMPRESSION: Small low-density area right caudate/internal capsule likely lacunar infarction. It has more of the appearance of being old than acute. However if the patient has clinical symptoms to suggest acuity then MRI of the brain would be recomme nded.
--- NOTE | 2019-01-06 16:57 | P.HP ---
Certification for Inpatient Patient admitted to: Observation With expected LOS: <2 Midnights Patient will require the following post-hospital care: None Practitioner: I am a practitioner with admitting privileges, knowledge of patient current condition, hospital course, and medical plan of care. Services: Services provided to patient in accordance with Admission requirements found in Title 42 Section 412.3 of the Code of Federal Regulations Patient History Date of Service: 01/06/19 Reason for admission: Syncope History of Present Illness: 63 y/o M with Signficant pmhx who presented to the ED with c/o Syncope. Pt stated he was at the [place] for doctor's consuelo and felt lightheaded and had a syncopal episode. The Episode lasted for about 30 sec and pt does not remember anything that happened during that time. Pt states he has been having similar episodes for past 2 week and is related to standing. Pt also complains of Chest tightness, cough and SOB. Pt also complains of having diarrhea and weakness for past couple of weeks. Pt had PNA 3 weeks ago and was admitted to the hospital for further care. He was recently DC on abx and have been doing well overall. He thought it was his PNA that was still present and thus he decided to come to the ER. Allergies No Known Drug Allergies Allergy (Verified 12/15/18 20:07) Unknown Home medications list reviewed: Yes Home Medications: Atorvastatin Calcium [Lipitor*] 10 mg PO BEDTIME 12/15/18 Calcium Citrate/Vitamin D3 [Calcium Citrate - Vit D Caplet] 1 tab PO TIDWM 12/15 Cyclobenzaprine HCl 10 mg PO TIDP PRN 12/15/18 Duloxetine HCl 2 cap PO DAILY 12/15/18 Escitalopram [Lexapro*] 20 mg PO DAILY 12/15/18 Finasteride [Proscar*] 5 mg PO DAILY 12/15/18 Leflunomide 2 tab PO DAILY 12/15/18 Loratadine 10 mg PO DAILY 12/15/18 Meloxicam 15 mg PO DAILY 12/15/18 Omeprazole 20 mg PO BID 12/15/18 Pregabalin 225 mg PO BID 12/15/18 Riboflavin [Vitamin B-2] 100 mg PO DAILY 12/15/18 Thiamine HCl 200 mg PO DAILY 12/15/18 Trazodone [Desyrel*] 200 mg PO BEDTIME PRN PRN 12/15/18 Vit C/E/Zn/Coppr/Lutein/Zeaxan [Preservision Areds 2 Softgel] 1 cap PO DAILY Vitamin B Complex [Vitamin B Complex*] 1 cap PO DAILY 12/15/18 Azithromycin 500 mg PO DAILY #7 tablet 12/17/18 predniSONE [Deltasone*] 10 mg PO BID #14 tab 12/17/18 - Past Medical/Surgical History Has patient received pneumonia vaccine in the past: Yes Diabetic: No -: Hypertension -: Hyperlipidemia -: Scarring to back of the eye -: Neuropathy -: Depression -: Arthritis -: Enlarged Prostate -: Right hand surgery -: Double Hernia Surgery -: Bilateral cataract removal - Family History Family History: Reviewed- Non-Contributory - Family History Father Notes: - Stroke - Social History Smoking Status: Former smoker Counseled patient to stop smoking for: more than 10 minutes Smoking therapy provided: Yes Patient receptive to therapy: Yes Alcohol use: No CD- Drugs: No Caffeine use: Yes Place of Residence: Home Review of Systems 10-point ROS is otherwise unremarkable Physical Examination - Physical Exam General: Alert, In no apparent distress Respiratory: Clear to auscultation bilaterally, Normal air movement Cardiovascular: Regular rate/rhythm, Normal S1 S2 Gastrointestinal: Normal bowel sounds, No tenderness Musculoskeletal: No tenderness Integumentary: No rashes Neurological: Abnormal gait, Abnormal strength, Abnormal tone Lymphatics: No axilla or inguinal lymphadenopathy - Studies Laboratory Data (last 24 hrs) 01/06/19 12:15: PT 12.5, INR 1.06, APTT 37.6 H 01/06/19 12:15: WBC 5.0, Hgb 11.1 L, Hct 32.3 L, Plt Count 63 L 01/06/19 12:15: Sodium 136, Potassium 3.3 L, BUN 19 H, Creatinine 0.80, Glucose 95, Magnesium 2.2, Total Bilirubin 0.5, AST 8 L, ALT 13, Alkaline Phosphatase 166 H, Lipase 144 Microbiology Data (last 24 hrs): 01/06/19 13:13 Stool Occult Blood - Final Assessment and Plan - Problems (Diagnosis) (1) Syncopal episodes Current Visit: Yes Status: Acute Plan: Syncopal episode most likely 2.2 to Orthostatic -Will get ECHO, Carotid US and MRI done at this time -PT/OT for now -Cardiology consulted. Awaiting reccs as this time Qualifiers: Syncope type: unspecified Qualified Code(s): R55 - Syncope and collapse (2) Unsteady gait Current Visit: Yes Status: Acute Plan: Pt with Unsteady gait -Head CT with possible CVA, however chronic changes vs Acute. -Will get MRI stroke at this time. -PT/OT consulted. -Started on Lipitor. Hold Lovenox and ASA due to low plts at this time -Neurology consulted. Awaiting Reccs (3) Thrombocytopenia Current Visit: No Status: Acute Plan: Thrombocytopenia most likely 2.2 to recent antibiotics use vs ITP -Will monitor closely -Avoid lovenox, Heparin or ASA at this time (4) Depression Current Visit: No Status: Chronic Qualifiers: Depression Type: unspecified Qualified Code(s): F32.9 - Major depressive disorder, single episode, unspecified (5) Hyperlipidemia Current Visit: No Status: Chronic Qualifiers: Hyperlipidemia type: mixed hyperlipidemia Qualified Code(s): E78.2 - Mixed hyperlipidemia Discharge Plan: Home Plan to discharge in: Greater than 2 days - Advance Directives Does patient have a Living Will: No Does patient have a Durable POA for Healthcare: No - Code Status/Comfort Care Code Status Assessed: Yes Critical Care: No
--- NOTE | 2019-01-06 17:31 | EKG ---
Test Date: 2019-01-06 Test Time: 11:38:33 Personal Caregiver: KARSTEN MEASUREMENT RESULTS: Intervals: Rate: 81 [place]: 142 QRSD: 82 QT: 408 QTc: 473 [place]: P: 39 [place]: 142 QRS: 31 T: 50 INTERPRETIVE STATEMENTS: Normal sinus rhythm Normal ECG Compared to ECG 12/15/2018 15:21:16 ST (T wave) deviation no longer present Electronically Signed On 01-06-19 17:30:50 CDT by Darion Winters
[2019-01-06] MEDS: INSULIN -REGULAR HUMAN 50 UNIT/0.5 ML ML SQ SCH ×2 (18:06→21:00)
[2019-01-06 18:59] LABS: Urine Appearance TURBID; Urine Bilirubin NEGATIVE (NEG); Urine Blood NEGATIVE (NEG); Urine Color YELLOW; Urine Glucose NEGATIVE (NEG); Urine Protein NEGATIVE (NEG); Urine Urobilinogen 0.2 mg/dL (0.2-1.0); Urine pH 6.5 (5.0-7.0)
[2019-01-06 19:09] LABS: Urine Microscopic Reflex ORDER UMIC
--- NOTE | 2019-01-06 19:41 | RAD REPORT ---
EXAM DESCRIPTION: USCarotid Artery Dvfrlzihv76/22/2019 7:33 pm CLINICAL HISTORY: Syncope COMPARISON: None FINDINGS: The velocity of the right internal carotid artery equals 89 cm/sec. The right ICA/CCA rati o 1.7 The velocity of the left internal carotid artery equals 94 cm/sec. The left ICA/CCA ratio 1 Mild plaque is present within the carotid arteries. The vertebral arteries demonstrate antegrade flow IMPRESSION: Mild plaque within the carotid arteries without evidence of a hemodynamically significan t stenosis NASCET criteria used. Mild 0-49% stenosis Moderate 50-69% stenosis Severe 70-99% stenosis
--- NOTE | 2019-01-06 19:46 | RAD REPORT ---
EXAM DESCRIPTION: US - Abdomen Exam Complete - 01/06/2019 7:36 pm CLINICAL HISTORY: Abdominal pain elevated liver function test enzymes COMPARISON: November 2018 cat scan FINDINGS: The liver has an increased echotexture. The evaluation of the gallbladder was limited without visualization of a gross abnormality. The bilia ry tree is normal caliber. The pancreas was not well visualized secondary to overlying bowel gas The right kidney measures 10 centimeters with a normal echotexture. The left kidney measures 11 centimeters with a normal echotexture. The spleen measures 10 centimeters. The abdominal aorta and inferior vena cava appear unremarkable IMPRESSION: Mildly increased hepatic echotexture consistent with fatty infiltration The evaluation of gallbladder is limited on this exam. The recent CT demonstrates a 5 millimeter calc ification within the gallbladder probably a gallstone. Gallbladder wall is not thickened
[2019-01-06 19:54] LABS: Urine Bacteria <20 /HPF (NONE SEEN); Urine Culture Reflex Order NOT NEEDED; Urine RBC <5 /HPF (NONE SEEN)
[2019-01-06 19:55] LABS: Calcium Oxalate Crystals- Ur PRESENT (NONE SEEN)
[2019-01-06 21:06] VITALS: BMI 19.2
[2019-01-07 04:52] LABS: Absolute Lymphocytes (CBC) 0.5 K/uL (0.7-4.9); Basophils % 0.3 % (0-1.3); Hematocrit 26.3 % (39.6-49.0); Lymphocytes % 12.2 % (15.3-44.8); MPV 9.9 fL (7.6-11.3)
[2019-01-07 05:04] LABS: ALT/SGPT 10 U/L (12-78); AST/SGOT 7 U/L (15-37); Alkaline Phosphatase 121 U/L (45-117); BUN Blood Urea Nitrogen 17 mg/dL (7-18); Bicarbonate 30 mmol/L (21-32); Bilirubin Total 0.3 mg/dL (0.2-1.0); Glucose Level 98 mg/dL (74-106); HDL Cholesterol 27 mg/dL (40-60); LDL Cholesterol, Calculated 41 (<130); Potassium 4.5 mmol/L (3.5-5.1); Protein, Total 5.5 g/dL (6.4-8.2); Sodium Level 140 mmol/L (136-145)
[2019-01-07] MEDS: INSULIN -REGULAR HUMAN 50 UNIT/0.5 ML ML SQ SCH (07:30)
--- NOTE | 2019-01-07 08:51 | RAD REPORT ---
EXAM DESCRIPTION: MRI - Brain W/Wo Cont - 01/06/2019 8:48 pm CLINICAL HISTORY: CVA COMPARISON: January 06, [address] TECHNIQUE: Axial, sagittal, and coronal magnetic images of the brain were obtained. 16 cc MultiHance administered intravenously FINDINGS: Increased signal within the right basal ganglia and right internal capsule represents old lacunar infarction. The ventricles are normal in caliber. Diffusion-weighted/ ADC mapping sequences do not demonstrate evidence of an acute infarction. No abnormal enhancement within the brain is seen. An extra-axial fluid collection is not noted. Fluid within the sinuses/mastoids is not seen IMPRESSION: Old lacunar infarct right basal ganglia/right internal capsule No acute abnormality displayed
--- NOTE | 2019-01-07 09:20 | RAD REPORT ---
EXAM DESCRIPTION: MRI - MRA Head Wo Cont - 01/06/2019 8:48 pm CLINICAL HISTORY: CVA COMPARISON: None. TECHNIQUE: Magnetic resonance angiogram was performed. 3D MIPS reconstruction performed FINDINGS: The anterior cerebral, middle cerebral, posterior cerebral, distal internal carotid and ba silar arteries do not demonstrate a significant stenosis. An aneurysm is not displayed. IMPRESSION: Unremarkable MRA brain.
--- NOTE | 2019-01-07 09:23 | RAD REPORT ---
EXAM DESCRIPTION: MRI - MRA Neck W/Wo Cont - 01/06/2019 8:48 pm CLINICAL HISTORY: CVA COMPARISON: None. TECHNIQUE: Magnetic resonance angiogram of the neck was performed. 19 cc MultiHance was administered intravenously. 3D MIPS reconstruction performed FINDINGS: Mild to moderate plaque within the proximal right external carotid artery Mild plaque is seen within common and internal carotid arteries. The vertebral arteries are codominant without visualization of an abnormality. IMPRESSION: Mild plaque within the common and internal carotid arteries NASCET criteria used. Mild 0-49% stenosis Moderate 50-69% stenosis Severe 70-99% stenosis
--- NOTE | 2019-01-07 11:53 | P.PN ---
Subjective Date of Service: 01/07/19 Chief Complaint: Syncope Subjective: No new changes, No C/O voiced, Ambulating, Working w/ PT, Doing well Review of Systems 10-point ROS is otherwise unremarkable Physical Examination - Vital Signs Temperature: 97.8 F Blood Pressure: 122/68 Pulse: 69 Respirations: 18 Pulse Ox (%): 97 - Physical Exam General: Alert, In no apparent distress, Oriented x3, Demented HEENT: Atraumatic, PERRLA, EOMI Neck: Supple, JVD not distended Respiratory: Clear to auscultation bilaterally, Normal air movement Cardiovascular: Regular rate/rhythm, Normal S1 S2 Gastrointestinal: Normal bowel sounds, No tenderness Musculoskeletal: No tenderness Integumentary: No rashes Neurological: Normal speech, Normal tone, Normal affect Lymphatics: No axilla or inguinal lymphadenopathy - Studies Laboratory Data (last 24 hrs) 01/06/19 12:15: PT 12.5, INR 1.06, APTT 37.6 H 01/06/19 12:15: WBC 5.0, Hgb 11.1 L, Hct 32.3 L, Plt Count 63 L 01/06/19 12:15: Sodium 136, Potassium 3.3 L, BUN 19 H, Creatinine 0.80, Glucose 95, Magnesium 2.2, Total Bilirubin 0.5, AST 8 L, ALT 13, Alkaline Phosphatase 166 H, Lipase 144 Microbiology Data (last 24 hrs): 01/06/19 12:55 Blood - Blood Anaerobic Blood Culture - Final 01/06/19 13:13 Stool Occult Blood - Final Medications List Reviewed: Yes Assessment And Plan - Current Problems (Diagnosis) (1) Syncopal episodes Current Visit: Yes Status: Acute Plan: Syncopal episode most likely 2.2 to Orthostatic -ECHO and carotid with no acute changes -PT/OT consulted. Awaiting Reccs -Cardiology consulted. Reccs Appreciated -Will have pt work with PT and f.u with reccs Qualifiers: Syncope type: unspecified Qualified Code(s): R55 - Syncope and collapse (2) Unsteady gait Current Visit: Yes Status: Acute Plan: Pt with Unsteady gait -Head CT with possible CVA, however chronic changes vs Acute. -MRI with Old infarct. No acute CVA noted -PT/OT consulted. Awaiting Reccs -Started on Lipitor. Hold Lovenox and ASA due to low plts at this time -Neurology consulted. Awaiting Reccs (3) Thrombocytopenia Current Visit: No Status: Acute Plan: Thrombocytopenia most likely 2.2 to recent antibiotics use vs ITP -plt today at 53 and hgb trending down today -Avoid lovenox, Heparin or ASA at this time -No Active bleeding noted at this time -Guaiac test negative. -If needed will consult Heme/oncology or pt can f.u outpt as well (4) Depression Current Visit: No Status: Chronic Qualifiers: Depression Type: unspecified Qualified Code(s): F32.9 - Major depressive disorder, single episode, unspecified (5) Hyperlipidemia Current Visit: No Status: Chronic Qualifiers: Hyperlipidemia type: mixed hyperlipidemia Qualified Code(s): E78.2 - Mixed hyperlipidemia - Plan Pending PT and Neurology consult. Will monitor plt and hgb level at 12:00
[2019-01-07] MEDS ORDERED: CALCIUM CITRATE PO SCH (12:00)
[2019-01-07] MEDS ORDERED: VITAMIN D3 PO SCH (12:00)
[2019-01-07 12:11] LABS: Hematocrit 26.3 % (39.6-49.0); MPV 11.2 fL (7.6-11.3); RBC Red Blood Cell Count 2.91 M/uL (4.33-5.43)
--- NOTE | 2019-01-07 13:25 | CON ---
Identification: A 63-year-old man. Chief Complaint: Loss of consciousness. History Of Present Illness: Yesterday, Mr. Bates was in line to be seen at the local [facility] when he fainted in line. Mr. Bates was being seen just for a routine visit for mental health issues. Mustapha chika did not care to elaborate any. Two weeks ago or so, he was in our hospital with pneumonia. In his chest x-ray, still looks like there is active pneumonia. He does not eat breakfast. He usually eat s 1 meal a day, and yesterday when he fainted, he had not eaten. The patient has a history of caruso ry stent placed for a myocardial infarction. He does not remember any details. We have no records. He does not even remember what city it was in, what hospital, or what doctor. He does not see those doctors. It was not done at the [place]. Home Medications: Meloxicam, Proscar, duloxetine, loratadine, omeprazole, atorvastatin, calcium citr ate with vitamin D, cyclobenzaprine, trazodone, Lyrica, leflunomide, escitalopram, thiamine, and cyan ocobalamin. Social History: Patient is a heavy cigarette user. He is an alcohol abuser, at least some times. I do not think he has had a drink today or yesterday. Allergies: NO ALLERGIES ARE KNOWN. Physical Examination: Vital Signs: He is 6 feet 4 inches, 158 pounds. Most recent blood pressure 121/69. I do not see th at orthostatic vital signs have been done, but we have 1 blood pressure of 93/67. HEENT: Unremarkable. General: He looks gaunt and disheveled. Lungs: Reveal bibasilar wheezes and crackles. Heart: Within normal limits. Abdomen: Soft. Extremities: Palpable but diminished distal pulses. No ulcers, edema, cyanosis, clubbing. Laboratory Data And Imaging: He has a normal white blood cell count, but of note in his blood count, his hemoglobin has fallen from 11.1 to 8.9 overnight. I would be worried whether he has been having significant GI blood loss. I would be reluctant to attribute all of that change to rehydration, alt rhina I do suspect he was dehydrated when he came in. He has had normal cardiac enzymes, normal EKG, normal BUN and creatinine. His chest x-ray looks like there is bilateral pneumonia. I think the patient has residual effects fr om pneumonia. Assessment And Plan: I think there is very poor nutrition and hydration, very poor personal hygiene in general. He is just short of being called cachectic or emaciated. He is probably bleeding. I th ink a GI consult should be considered. He should be checked for blood in his stools and have his hem oglobin followed carefully. An echo is pending. He has had a carotid Doppler and MRI of the brain t hat do not seem to indicate any acute problem. I do not suspect this episode of syncope was caused b y any acute heart problem or a brain problem. It was very poor hydration and nutrition, and lingerin g effects of pneumonia. MATTIE/MODGhulam Voice ID: [id number] Report ID: [id number]
--- NOTE | 2019-01-07 15:28 | ECHO ---
HEIGHT: 6 ft 4 in WEIGHT: 158 lb 1.6 oz DATE OF STUDY: 01/07/[address]: Niharika Polo MD 2-DIMENSIONAL: YES M.MODE: YES DOPPLER: YES COLOR FLOW: YES TDS: NO PORTABLE: NO DEFINITY: NO BUBBLE STUDY: NO DIAGNOSIS: SYNCOPAL EPISODE CARDIAC HISTORY: CATHERIZATION: YES SURGERY: NO PROSTHETIC VALVE: NO PACEMAKER: NO MEASUREMENTS (cm) DIASTOLIC (NORMALS) SYSTOLIC (NORMALS) IVSd 0.9 (0.6-1.2) LA Diam 2.8 (1.9-4.0) LVEF 65% LVIDd 4.3 (3.5-5.7) LVIDs 2.8 (2.0-3.5) %FS 35% LVPWd 1.0 (0.6-1.2) Ao Diam 3.2 (2.0-3.7) 2 DIMENSIONAL ASSESSMENT: RIGHT ATRIUM: NORMAL LEFT ATRIUM: NORMAL RIGHT VENTRICLE: NORMAL LEFT VENTRICLE: NORMAL TRICUSPID VALVE: NORMAL MITRAL VALVE: NORMAL PULMONIC VALVE: NORMAL AORTIC VALVE: NORMAL PERICARDIAL EFFUSION: NONE AORTIC ROOT: NORMAL LEFT VENTRICULAR WALL MOTION: NORMAL. DOPPLER/COLOR FLOW: MILD AORTIC REGURGITATION. MILD TRICUSPID REGURGITATION. NORMAL RIGHT VENTRICULAR SYSTOLIC PRESSURE. COMMENTS: NORMAL 2D ECHO WITH DOPPLER. MILD AORTIC REGURGITATION. MILD TRICUSPID REGURGITATION. TECHNOLOGIST: GURMEET GILL
[2019-01-07] MEDS: CALCIUM CARB 500MG/VIT D 200 IU TAB PO SCH (16:22)
[2019-01-07] MEDS ORDERED: TRAZODONE 50 MG TABLET PO SCH (21:00)
[2019-01-07] MEDS ORDERED: ATORVASTATIN 10 MG TAB PO SCH (21:00)
[2019-01-07] MEDS: PREGABALIN 75 MG CAP PO SCH (22:31)
[2019-01-07] MEDS: PREGABALIN 150 MG CAP PO SCH (22:31)
[2019-01-08 04:58] LABS: Absolute Lymphocytes (CBC) 0.8 K/uL (0.7-4.9); Basophils % 0.8 % (0-1.3); Hematocrit 28.9 % (39.6-49.0); Lymphocytes % 20.4 % (15.3-44.8); MPV 10.3 fL (7.6-11.3); RBC Red Blood Cell Count 3.18 M/uL (4.33-5.43)
[2019-01-08 05:06] LABS: ALT/SGPT 10 U/L (12-78); AST/SGOT 7 U/L (15-37); Albumin 2.2 g/dL (3.4-5.0); Alkaline Phosphatase 147 U/L (45-117); BUN Blood Urea Nitrogen 14 mg/dL (7-18); Bicarbonate 31 mmol/L (21-32); Bilirubin Total 0.3 mg/dL (0.2-1.0); Glucose Level 83 mg/dL (74-106); Potassium 3.7 mmol/L (3.5-5.1); Sodium Level 140 mmol/L (136-145)
[2019-01-08] MEDS ORDERED: LORATADINE 10 MG TAB PO SCH (09:00)
[2019-01-08] MEDS ORDERED: FINASTERIDE 5 MG TAB PO SCH (09:00)
[2019-01-08] MEDS ORDERED: POTASSIUM 25 MEQ EFFERV TAB PO ONE (09:00)
[2019-01-08] MEDS ORDERED: LEFLUNOMIDE PO SCH (09:00)
[2019-01-08] MEDS ORDERED: ESCITALOPRAM 20 MG TAB PO SCH (09:00)
[2019-01-08] MEDS ORDERED: DULOXETINE 30 MG CAP PO SCH (09:00)
[2019-01-08 09:02] VITALS: BP 113/70; TEMP 97.7
[2019-01-08] MEDS: PREGABALIN 75 MG CAP PO SCH (09:25)
[2019-01-08] MEDS: PREGABALIN 150 MG CAP PO SCH (09:25)
[2019-01-08] MEDS: CALCIUM CARB 500MG/VIT D 200 IU TAB PO SCH (09:25)
[2019-01-08 10:24] VITALS: O2SAT 90
[2019-01-08 10:31] LABS: Ferritin 367.2 ng/mL (26-388)
--- NOTE | 2019-01-08 10:37 | P.DS ---
Admission Date: 01/06/19 Discharge Date: 01/08/19 Primary Care Provider: [facility] Disposition: ROUTINE DISCHARGE Discharge Condition: GOOD Reason for Admission: Syncope Consultations: Cardiology-Dr. Winters Neurology-Dr. Funk Procedures: CT Brain: FINDINGS: An intracranial bleed is not seen . The ventricles are normal in caliber. No extra-axial fluid collection is noted. Small low-density area right caudate/ internal capsule. . Fluid within the sinuses/ mastoids is not seen. IMPRESSION: Small low-density area right caudate/internal capsule likely lacunar infarction. It has more of the appearance of being old than acute. MRI Brain: FINDINGS: Increased signal within the right basal ganglia and right internal capsule represents old lacunar infarction. The ventricles are normal in caliber. Diffusion-weighted/ ADC mapping sequences do not demonstrate evidence of an acute infarction. No abnormal enhancement within the brain is seen. An extra-axial fluid collection is not noted. Fluid within the sinuses/mastoids is not seen IMPRESSION: Old lacunar infarct right basal ganglia/right internal capsule No acute abnormality displayed MRA Brain: FINDINGS: The anterior cerebral, middle cerebral, posterior cerebral, distal internal carotid and basilar arteries do not demonstrate a significant stenosis. An aneurysm is not displayed. IMPRESSION: Unremarkable MRA brain. MRA Neck: FINDINGS: Mild to moderate plaque within the proximal right external carotid artery Mild plaque is seen within common and internal carotid arteries. The vertebral arteries are codominant without visualization of an abnormality. IMPRESSION: Mild plaque within the common and internal carotid arteries ECHO: Ejection fraction 65% LEFT VENTRICULAR WALL MOTION: NORMAL. DOPPLER/COLOR FLOW: MILD AORTIC REGURGITATION. MILD TRICUSPID REGURGITATION. NORMAL RIGHT VENTRICULAR SYSTOLIC PRESSURE. COMMENTS: NORMAL 2D ECHO WITH DOPPLER. MILD AORTIC REGURGITATION. MILD TRICUSPID REGURGITATION. Carotid doppler: FINDINGS: The velocity of the right internal carotid artery equals 89 cm/sec. The right ICA/CCA ratio 1.7 The velocity of the left internal carotid artery equals 94 cm/sec. The left ICA/ CCA ratio 1 Mild plaque is present within the carotid arteries. The vertebral arteries demonstrate antegrade flow IMPRESSION: Mild plaque within the carotid arteries without evidence of a hemodynamically significant stenosis Abdominal ultrasound: FINDINGS: The liver has an increased echotexture. The evaluation of the gallbladder was limited without visualization of a gross abnormality. The biliary tree is normal caliber. The pancreas was not well visualized secondary to overlying bowel gas The right kidney measures 10 centimeters with a normal echotexture. The left kidney measures 11 centimeters with a normal echotexture. The spleen measures 10 centimeters. The abdominal aorta and inferior vena cava appear unremarkable IMPRESSION: Mildly increased hepatic echotexture consistent with fatty infiltration The evaluation of gallbladder is limited on this exam. The recent CT demonstrates a 5 millimeter calcification within the gallbladder probably a gallstone. Gallbladder wall is not thickened Medical Problem List: Syncope likely related to orthostatic hypotension and moderate malnutrition Pancytopenia suspect myelodysplastic syndrome with noted iron deficiency History of CVA Carotid arterial disease Fatty liver Hyperlipidemia Depression GERD Rheumatoid arthritis Asymptomatic Cholelithiasis Brief History of Present Illness: 63-year-old male presented to the emergency room with a syncopal episode. Patient was at the [facility] to visit his doctor. He became very lightheaded and had a syncopal episode. The episode lasts about 30 seconds. Patient does not recall the event. Patient had similar episodes 2 weeks ago upon standing. Patient also had recent diarrhea and weakness over the past several weeks. He had been treated and diagnosed for pneumonia about 3 weeks ago. Patient presented to the emergency room and admitted for further evaluation. Initial CT scan unremarkable. Hospital Course: Patient presented with syncopal episode. This was likely from orthostatics hypertension and moderate malnutrition. Patient was admitted for further evaluation. Patient seen and evaluated by Cardiology. CT brain showed no acute changes. Prior CVA noted. MRI brain, MRA brain were unremarkable. No acute finding noted. MRA neck and carotid Doppler showed mild plaque without significant stenosis. Patient was hydrated. Patient did well in his stay. At discharge patient will be discharged home. Recommend to follow up with his PCP at the [facility] within 1 week to follow up this hospitalization. Recommend encouragement of increased oral intake. Will provide Ensure 3 times a day to ensure adequate nutrition. Recommend to recheck lab-BMP, CBC in 1-2 weeks to monitors progress. Patient will also continue with thiamine 200 mg daily Patient found to have pancytopenia. This appears chronic. Patient previously on B12 injections. Patient reports that he has seen Hematology in the past. This has remained stable. Lab indicated iron deficiency as well. Peripheral smear will be obtained prior to discharge. At discharge will recommend to continue with iron supplementation 3 times a day and B12 injections monthly. Will recommend a follow [facility] with [facility] within [facility]-2 weeks to follow up this hospitalization. Patient may require bone marrow biopsy to further evaluate. Patient to follow up with hematology to go over peripheral smear. Patient would also benefit with a GI evaluation in the near future. This will likely include EGD and colonoscopy evaluation. Note that GI not available during this hospitalization. Recommend outpatient GI workup workup. At discharge CBC remained stable. Recommend to recheck lab-CBC in 1 week. Will recommend no nonsteroidal anti-inflammatories. Patient previously on meloxicam. This will be discontinued. Patient with history of CVA. Will recommend to continue with statin medication , folic acid. Patient not previously on aspirin or Plavix. Will recommend not to add aspirin or Plavix at this time due to his pancytopenia. Patient noted to have carotid arterial disease up with cardiology as an outpatient to further monitor. Patient found to have fatty liver. Incidental finding of gallstone noted. The patient has right upper quadrant symptoms, will recommend outpatient surgical evaluation. Patient with depression. Patient will continue with his current medications- Cymbalta 60 mg daily and Lexapro 20 mg daily.. Recommend follow up with psychiatry as an outpatient to further monitor. Patient with GERD. At discharge will recommend to continue Protonix 40 mg daily. Patient with hyperlipidemia. Patient will continue with his medication Lipitor 10 mg daily. Patient with history of BPH. At discharge he will continue with Proscar 5 mg daily. Suspect patient with underlying rheumatoid arthritis as he takes Leflunomide. He will continue but recommend no use of nonsteroidal anti-inflammatories. As mentioned above, patient with moderate malnutrition. Encourage oral intake. Will provide Ensure supplementation 3 times a day. Vital Signs/Physical Exam: Temp Pulse Resp BP Pulse Ox 97.7 F 78 17 113/70 90 L 01/08/19 08:00 01/08/19 08:00 01/08/19 08:00 01/08/19 08:00 01/08/19 08:00 General: Alert, In no apparent distress, Oriented x3, Cooperative, Cachectic HEENT: Atraumatic Neck: Supple Respiratory: Clear to auscultation bilaterally, Normal air movement Cardiovascular: Normal pulses, Regular rate/rhythm Gastrointestinal: Normal bowel sounds, Soft and benign, Non-distended, No tenderness, No masses, No rebound, No guarding Musculoskeletal: No erythema, No tenderness, No warmth Integumentary: No tenderness/swelling, No erythema, No warmth, No cyanosis Neurological: Normal speech, Normal strength at 5/5 x4 extr, Normal tone, Normal affect Laboratory Data at Discharge: WBC 4.1 K/uL (4.3-10.9) L D 01/08/19 03:55 Hgb 9.6 g/dL (13.6-17.9) L 01/08/19 03:55 Hct 28.9 % (39.6-49.0) L 01/08/19 03:55 Plt Count 57 K/uL (152-406) L 01/08/19 03:55 PT 12.5 SECONDS (9.5-12.5) 01/06/19 12:15 INR 1.06 01/06/19 12:15 APTT 37.6 SECONDS (24.3-36.9) H 01/06/19 12:15 Sodium 140 mmol/L (136-145) 01/08/19 03:55 Potassium 3.7 mmol/L (3.5-5.1) 01/08/19 03:55 BUN 14 mg/dL (7-18) 01/08/19 03:55 Creatinine 0.64 mg/dL (0.55-1.3) 01/08/19 03:55 Glucose 83 mg/dL (74-106) 01/08/19 03:55 Magnesium 2.2 mg/dL (1.8-2.4) 01/06/19 12:15 Total Bilirubin 0.3 mg/dL (0.2-1.0) 01/08/19 03:55 AST 7 U/L (15-37) L 01/08/19 03:55 ALT 10 U/L (12-78) L 01/08/19 03:55 Alkaline Phosphatase 147 U/L (45-117) H 01/08/19 03:55 Triglycerides 87 mg/dL (<150) 01/07/19 04:29 Cholesterol 85 mg/dL (<200) 01/07/19 04:29 HDL Cholesterol 27 mg/dL (40-60) L 01/07/19 04:29 Cholesterol/HDL Ratio 3.15 01/07/19 04:29 Lipase 144 U/L (73-393) 01/06/19 12:15 Home Medications: Atorvastatin Calcium [Lipitor*] 10 mg PO BEDTIME 12/15/18 Calcium Citrate/Vitamin D3 [Calcium Citrate - Vit D Caplet] 1 tab PO TIDWM 12/15 Duloxetine HCl 2 cap PO DAILY 12/15/18 Escitalopram [Lexapro*] 20 mg PO DAILY 12/15/18 Finasteride [Proscar*] 5 mg PO DAILY 12/15/18 Leflunomide 2 tab PO DAILY 12/15/18 Loratadine 10 mg PO DAILY 12/15/18 Pregabalin 225 mg PO BID 12/15/18 Thiamine HCl 200 mg PO DAILY 12/15/18 Trazodone [Desyrel*] 200 mg PO BEDTIME 12/15/18 Cyanocobalamin [Vitamin B-12*] 1,000 mcg IM SEECOM 01/06/19 Ensure High Protein 237 ml PO TID #90 can 01/08/19 Pantoprazole [Protonix Tab] 40 mg PO DAILY #30 tab 01/08/19 New Medications: Ensure High Protein 237 ml PO TID #90 can Pantoprazole [Protonix Tab] 40 mg PO DAILY #30 tab Patient Discharge Instructions: [facility]. [facility] 2. Patient found to have pancytopenia. This appears chronic. Patient previously on B12 injections. Patient reports that he has seen Hematology in the past. This has remained stable. Lab indicated iron deficiency as well. Peripheral smear will be obtained prior to discharge. At discharge will recommend to continue with iron supplementation 3 times a day and B12 injections monthly. Will recommend a follow up with [facility] within 1-2 weeks to follow up this hospitalization. Patient may require bone marrow biopsy to further evaluate. Patient to follow up with hematology to go over peripheral smear. Patient would also benefit with a GI evaluation in the near future. This will likely include EGD and colonoscopy evaluation. Note that GI not available during this hospitalization. Recommend outpatient GI workup workup. At discharge CBC remained stable. Recommend to recheck lab-CBC in 1 week. Will recommend no nonsteroidal anti-inflammatories. Patient previously on meloxicam. This will be discontinued. 3. Patient with history of CVA. Will recommend to continue with statin medication, folic acid. Patient not previously on aspirin or Plavix. Will recommend not to add aspirin or Plavix at this time due to his pancytopenia. Patient noted to have carotid arterial disease up with cardiology as an outpatient to further monitor. 4. Patient found to have fatty liver. Incidental finding of gallstone noted. The patient has right upper quadrant symptoms, will recommend outpatient surgical evaluation. 5. Patient with depression. Patient will continue with his current medications-Cymbalta 60 mg daily and Lexapro 20 mg daily.. Recommend follow up with psychiatry as an outpatient to further monitor. 6. Patient with GERD. At discharge will recommend to continue Protonix 40 mg daily. 7. Patient with hyperlipidemia. Patient will continue with his medication Lipitor 10 mg daily. 8. Patient with history of BPH. At discharge he will continue with Proscar 5 mg daily. 9. Suspect patient with underlying rheumatoid arthritis as he takes Leflunomide. He will continue but recommend no use of nonsteroidal anti-inflammatories. 10. As mentioned above, patient with moderate malnutrition. Encourage oral intake. Will provide Ensure supplementation 3 times a day. Diet: AHA Activity: Fall precautions Time spent managing pt's care (in minutes): 55
--- NOTE | 2019-01-08 14:47 | PN ---
Mr. Bates was seen by Dr. Winters on 01/07/2019 for syncope. I have seen the patient today on 2018 in followup. The patient had not had anymore episode of syncope. Telemetry still showed no sig nificant arrhythmia or bradycardia. It was thought that his syncope was secondary to dehydration, ma lnutrition and recovering from a recent pneumonia. Echocardiogram which was done yesterday was leonard l. He had a negative carotid Doppler and negative MRA of his neck arteries. He has history of dysli pidemia. I am comfortable with Mr. Bates going home whenever it is okay with Dr. Polo. We will be happy to see him as an outpatient. KASSIE/STEVEN Voice ID: [id number] Report ID: [id number]
[2019-01-12 13:49] LABS: HBsAG Nonreactive (Nonreactive)
[2019-01-16] MEDS ORDERED: CYANOCOBALAMIN 1000MCG/ML INJ IM SCH (09:00)
== END 2019-01-08 12:24 | disposition home or self-care (01) ==
LOC: ER 11:18 → ERHOLD 16:26 → 4TH 17:28
PROVIDERS: ADMIT Family Medicine; ATTEND Family Medicine
DX: R55 Syncope and collapse (principal); J18.9 Pneumonia, unspecified organism; D61.818 Other pancytopenia; I10 Essential (primary) hypertension; M19.90 Unspecified osteoarthritis, unspecified site; R26.9 Unspecified abnormalities of gait and mobility; D69.6 Thrombocytopenia, unspecified; F32.9 Major depressive disorder, single episode, unspecified; E78.2 Mixed hyperlipidemia; K76.0 Fatty (change of) liver, not elsewhere classified; M06.9 Rheumatoid arthritis, unspecified; K21.9 Gastro-esophageal reflux disease without esophagitis; E44.0 Moderate protein-calorie malnutrition; Z68.1 Body mass index [BMI] 19.9 or less, adult; Z87.891 Personal history of nicotine dependence
CPT/HCPCS: 96365; 96361; 93005; 93306; 87040 ×2; 85025 ×3; 80048; 36415 ×2; 83735; 82550; 82274; 84132; 85610; 80061; 82947 ×3; 80076; 85730; 82272; 85027; 84484; 82728; 82607; 83690; 83540; 80053 ×2; 83880; 84466; 80074; 70450; 71045; 93880; 70553; 70544; 70549; 76700; 97112 ×2; 97116 ×2; 97161; 97530; 99285; 96366; A9577; J0456; J0696; J7030; G0378 ×4; 81003; 81015

== ENCOUNTER 2019-02-13 17:37 | Emergency (ER) | payer OTHER ==
--- NOTE | 2019-02-13 21:01 | RAD REPORT ---
EXAM DESCRIPTION: RAD - Chest Pa And Lat (2 Views) - 02/13/2019 7:48 pm CLINICAL HISTORY: Cough;Congestion COMPARISON: December 2018, December 16, 2018 TECHNIQUE: PA and lateral views of the chest were obtained. FINDINGS: The lungs are significantly fibrotic as a baseline. There is increased retrosternal space. Diaphragm is not flattened. It interstitial pattern is not substantially different. There is a focal density left suprahilar region is similar to the December 16 imaging. This may be scarred parenchyma o r small mass. No long-term comparison imaging available. Trachea is midline. Heart size is normal and central vasculature is within normal limits. No pleur al effusion or pneumothorax seen. No acute bone finding. Patient has hypertrophy at old posterior se venth rib fracture. There is old rib fracture change at the sixth rib. No aortic abnormality. IMPRESSION: Prominent fibrotic lung pattern potentially masking edema and infiltrate. Focal left suprahilar small mass density is similar to short-term prior imaging. This may be a summa tion artifact of chronic lung disease and remodeling from posterior sixth and seventh rib fractures. CT imaging could be done for confirmation of scarring versus mass versus bone remodeling.
--- NOTE | 2019-02-13 22:24 | ER ---
Nurse's Notes [facility] Name: Surendra Bates Age: 63 yrs Sex: Male : 1955 Arrival Date: 02/13/2019 Time: 17:49 Bed 30 Private MD: Diagnosis: Chronic obstructive pulmonary disease with (acute) exacerbation;Pneumonia due to other specified bacteria;Hypotension Presentation: 02/13 18:00 Presenting complaint: Patient states: "I had Pneumonia about 2 or 3 months ago and I aa5 haven't been able to get rid of it". Pt reports SOB and cough. Transition of care: patient was not received from another setting of care. Onset of symptoms was 2018. Risk Assessment: Do you want to hurt yourself or someone else? Patient reports no desire to harm self or others. Initial Sepsis Screen: Does the patient meet any 2 criteria? No. Patient's initial sepsis screen is negative. Does the patient have a suspected source of infection? Yes: Productive cough/pneumonia. Care prior to arrival: None. 18:00 Acuity: DO 3 aa5 18:00 Method Of Arrival: Ambulatory aa5 Triage Assessment: 20:30 Respiratory: Reports shortness of breath at rest Onset: The symptoms/episode ch2 began/occurred yesterday, the patient has moderate shortness of breath. Historical: - Allergies: 18:02 No Known Allergies; aa5 - PMHx: 18:02 Myocardial infarction; CVA; aa5 - PSHx: 18:02 Heart stents; aa5 - Immunization history:: Flu vaccine is not up to date. - Social history:: Smoking status: Patient uses tobacco products, smokes two packs cigarettes per day. - Ebola Screening: : No symptoms or risks identified at this time. - Family history:: not pertinent. Screenin:23 Abuse screen: Denies threats or abuse. Nutritional screening: No deficits noted. ch2 Tuberculosis screening: Never had TB. Fall Risk Fall in past 12 months (25 points). IV access (20 points). Ambulatory Aid- None/Bed Rest/Nurse Assist (0 pts). Gait- Normal/Bed Rest/Wheelchair (0 pts) Mental Status- Oriented to own ability (0 pts). Total George Fall Scale indicates. Assessment: 20:05 General: Appears in no apparent distress. uncomfortable, slender, Behavior is calm, ch2 cooperative, Smells of Reports fatigue for 1-2 days, Denies fever. Pain: Denies pain. Neuro: Level of Consciousness is awake, alert, obeys commands, Oriented to person, place, time, situation, Gait is steady, Speech is normal, Facial symmetry appears normal, Pupils are PERRLA, Reports dizziness, a syncopal episode. Neuro: Reports numbness in right foot and left foot pt reporting history of neuropathy. Cardiovascular: Denies chest pain, fatigue, lightheadedness, shortness of breath, Heart tones S1 S2 present Rhythm is sinus rhythm. Cardiovascular: Reports fatigue, lightheadedness, shortness of breath, syncope. Respiratory: Airway is patent Respiratory effort is even, unlabored, with cough Breath sounds are clear bilaterally. GI: Abdomen is flat, Abd is soft and non tender. : No signs and/or symptoms were reported regarding the genitourinary system. EENT: No deficits noted. No signs and/or symptoms were reported regarding the EENT system. Derm: Skin is intact, is healthy with good turgor, Skin is Skin is pink, warm \\T\\ dry. normal. Musculoskeletal: Circulation, motion, and sensation intact. Capillary refill < 3 seconds, in bilateral fingers. Range of motion: intact in all extremities. 22:24 Reassessment: Patient appears in no apparent distress at this time. No changes from ch2 previously documented assessment. Patient and/or family updated on plan of care and expected duration. Pain level reassessed. Patient is alert, oriented x 3, equal unlabored respirations, skin warm/dry/pink. Patient denies pain at this time. 23:19 Reassessment: Patient and/or family updated on plan of care and expected duration. Pain ch2 level reassessed. Patient is alert, oriented x 3, equal unlabored respirations, skin warm/dry/pink. 23:19 General: Appears in no apparent distress. comfortable, Behavior is calm, cooperative. ch2 Respiratory: Respiratory effort is even, unlabored, Respiratory pattern is regular, symmetrical. 02/14 00:30 Reassessment: No changes from previously documented assessment. Patient and/or family ch2 updated on plan of care and expected duration. Pain level reassessed. Patient is alert, oriented x 3, equal unlabored respirations, skin warm/dry/pink. Patient denies pain at this time. Patient states feeling better. Patient states symptoms have improved. 00:30 Respiratory: Respiratory effort is even, unlabored, Respiratory pattern is regular, ch2 symmetrical. 02:03 Reassessment: [facility] arrived, report given, patient left ED \\T\\[id number]. ch2 Vital Signs: 02/13 18:02 BP 98 / 75; Pulse 90; Resp 16 S; Temp 97.9(TE); Pulse Ox 96% on R/A; Weight 68.04 kg aa5 (R); Height 6 ft. 4 in. (193.04 cm) (R); 19:45 BP 159 / 90; Pulse 72; Resp 20; Temp 97.5; Pulse Ox 99% ; ch2 20:40 BP 165 / 89; Pulse 70; Resp 19; Pulse Ox 99% ; ch2 21:30 BP 166 / 98; Pulse 68; Resp 24; Pulse Ox 99% ; ch2 22:22 BP 159 / 90; Pulse 72; Resp 20; Pulse Ox 99% ; ch2 23:30 BP 154 / 84; Pulse 71; Resp 20; Pulse Ox 99% ; ch2 02/14 01:00 BP 144 / 89; Pulse 73; Resp 20; Pulse Ox 96% ; ch2 02:15 BP 127 / 97; Pulse 78; Resp 19; Pulse Ox 97% ; ch2 02/13 18:02 Body Mass Index 18.26 (68.04 kg, 193.04 cm) aa5 Vitals: 02:15 Cardiac Rhythm Assessment Regular Sinus rhythm. ch2 ED Course: 02/13 17:49 Patient arrived in ED. mr 18:00 Arm band placed on. aa5 18:01 Triage completed. aa5 18:12 EKG done, by ED staff, reviewed by Alexis Wray MD. jb1 19:48 Kash Gerber MD is Attending Physician. manuela 21:57 Arden Mc is Primary Nurse. wh 22:34 Initial lab(s) drawn, by ms, sent to lab. First set of blood cultures drawn. cm6 22:43 Inserted saline lock: 18 gauge in right antecubital area, using aseptic technique. cm6 22:44 Second set of blood cultures drawn. cm6 23:25 Patient has correct armband on for positive identification. Bed in low position. Call ch2 light in reach. Side rails up X 1. quality assurance monitor final on. Pulse ox on. Door closed. Noise minimized. Lights dimmed. 02/14 02:05 Patient transferred, IV remains in place. ch2 Administered Medications: 02/13 23:00 Drug: NS 0.9% 1000 ml Route: IV; Rate: 1 bolus; Site: right antecubital; [facility] 23:00 Drug: SOLU-Medrol 125 mg Route: IVP; Site: right antecubital; [facility] 23:00 Drug: Pepcid 20 mg Route: IVP; Site: right antecubital; [facility] 02/14 00:28 Follow up: Response: No adverse reaction; No change in condition [facility] 02/13 23:15 Drug: NS 0.9% 1000 ml Route: IV; Rate: 125 ml/hr; Site: right antecubital; [facility] 23:19 Drug: Albuterol - atroVENT (3:1) (2.5 mg - 0.5 mg) 3 ml Route: Nebulizer; [facility] 02/14 00:29 Follow up: Response: No adverse reaction [facility] 02/13 23:37 Drug: levofloxacin 500 mg Volume: 100 ml; Route: IVPB; Infused Over: 60 mins; Site: ch2 right antecubital; 02/14 00:30 Follow up: Rate change 100 ml/hr; IV Status: Completed infusion [facility] 00:30 Drug: Cefepime 2 grams Route: IVPB; Rate: 200 ml/hr; Infused Over: 30 mins; Site: right [facility] antecubital; 01:56 Follow up: Response: No adverse reaction; IV Status: Completed infusion [facility] Outcome: 02/13 22:23 ER care complete, transfer ordered by MD. roy 02/14 01:00 Transferred by ground EMS to other acute care facility: report called to LELIA Randall [address] \\T\\01:00 \\T\\[facility]. Transfer form completed. Condition: stable Instructed on the need for transfer. 02:17 Patient left the ED. ch2 Signatures: Duy Rodriguez jb1 Kash Gerber MD MD cha Rivera, Mary mr Calderon, Audri, RN RN salina5 Arden Mc Candace, LELIA RN ch2 Shannan Easton cm6
--- NOTE | 2019-02-13 22:25 | EDPHYS ---
Physician Documentation [facility] Name: Surendra Bates Age: 63 yrs Sex: Male : 1955 Arrival Date: 02/13/2019 Time: 17:49 Bed 30 Private MD: ED Physician Kash Gerber HPI: 02/13 22:17 This 63 yrs old Male presents to ER via Ambulatory with complaints of manuela Breathing Difficulty, Cough. 22:17 The patient has shortness of breath at rest, with light activity. Onset: The manuela symptoms/episode began/occurred 5 day(s) ago. Duration: The symptoms are continuous, and are steadily getting worse. The patient's shortness of breath is aggravated by coughing, supine position, talking, walking, is alleviated by elevating head, inhaler, nebulizer treatment, sitting up, application of supplemental oxygen. Associated signs and symptoms: Pertinent positives: non-productive cough. Severity of symptoms: At their worst the symptoms were mild moderate in the emergency department the symptoms are unchanged. The patient has experienced similar episodes in the past, several times. Historical: - Allergies: 18:02 No Known Allergies; aa5 - PMHx: 18:02 Myocardial infarction; CVA; aa5 - PSHx: 18:02 Heart stents; aa5 - Immunization history:: Flu vaccine is not up to date. - Social history:: Smoking status: Patient uses tobacco products, smokes two packs cigarettes per day. - Ebola Screening: : No symptoms or risks identified at this time. - Family history:: not pertinent. ROS: 22:17 Constitutional: Negative for fever, chills, and weight loss, Eyes: Negative for injury, manuela pain, redness, and discharge, ENT: Negative for injury, pain, and discharge, Neck: Negative for injury, pain, and swelling, Cardiovascular: Negative for chest pain, palpitations, and edema, Abdomen/GI: Negative for abdominal pain, nausea, vomiting, diarrhea, and constipation, Back: Negative for injury and pain, : Negative for injury, bleeding, discharge, and swelling, MS/Extremity: Negative for injury and deformity, Skin: Negative for injury, rash, and discoloration, Neuro: Negative for headache, weakness, numbness, tingling, and seizure, Psych: Negative for depression, anxiety, suicide ideation, homicidal ideation, and hallucinations, Allergy/Immunology: Negative for hives, rash, and allergies, Endocrine: Negative for neck swelling, polydipsia, polyuria, polyphagia, and marked weight changes, Hematologic/Lymphatic: Negative for swollen nodes, abnormal bleeding, and unusual bruising. 22:17 Respiratory: Positive for cough, shortness of breath, wheezing, inspiratory, expiratory. Exam: 22:17 Constitutional: This is a well developed, well nourished patient who is awake, alert, manuela and in no acute distress. Head/Face: Normocephalic, atraumatic. Eyes: Pupils equal round and reactive to light, extra-ocular motions intact. Lids and lashes normal. Conjunctiva and sclera are non-icteric and not injected. Cornea within normal limits. Periorbital areas with no swelling, redness, or edema. ENT: Nares patent. No nasal discharge, no septal abnormalities noted. Tympanic membranes are normal and external auditory canals are clear. Oropharynx with no redness, swelling, or masses, exudates, or evidence of obstruction, uvula midline. Mucous membranes moist. Neck: Trachea midline, no thyromegaly or masses palpated, and no cervical lymphadenopathy. Supple, full range of motion without nuchal rigidity, or vertebral point tenderness. No Meningismus. Chest/axilla: Normal chest wall appearance and motion. Nontender with no deformity. No lesions are appreciated. Cardiovascular: Regular rate and rhythm with a normal S1 and S2. No gallops, murmurs, or rubs. Normal PMI, no JVD. No pulse deficits. Abdomen/GI: Soft, non-tender, with normal bowel sounds. No distension or tympany. No guarding or rebound. No evidence of tenderness throughout. Back: No spinal tenderness. No costovertebral tenderness. Full range of motion. Male : Normal genitalia with no discharge or lesions. Skin: Warm, dry with normal turgor. Normal color with no rashes, no lesions, and no evidence of cellulitis. MS/ Extremity: Pulses equal, no cyanosis. Neurovascular intact. Full, normal range of motion. Neuro: Awake and alert, GCS 15, oriented to person, place, time, and situation. Cranial nerves II-XII grossly intact. Motor strength 5/5 in all extremities. Sensory grossly intact. Cerebellar exam normal. Normal gait. Psych: Awake, alert, with orientation to person, place and time. Behavior, mood, and affect are within normal limits. 22:17 Respiratory: mild respiratory distress is noted, Respirations: labored breathing, that is mild, Breath sounds: bronchial sounds, decreased breath sounds, rhonchi, wheezing: inspiratory expiratory Vital Signs: 18:02 BP 98 / 75; Pulse 90; Resp 16 S; Temp 97.9(TE); Pulse Ox 96% on R/A; Weight 68.04 kg aa5 (R); Height 6 ft. 4 in. (193.04 cm) (R); 19:45 BP 159 / 90; Pulse 72; Resp 20; Temp 97.5; Pulse Ox 99% ; ch2 20:40 BP 165 / 89; Pulse 70; Resp 19; Pulse Ox 99% ; ch2 21:30 BP 166 / 98; Pulse 68; Resp 24; Pulse Ox 99% ; ch2 22:22 BP 159 / 90; Pulse 72; Resp 20; Pulse Ox 99% ; ch2 23:30 BP 154 / 84; Pulse 71; Resp 20; Pulse Ox 99% ; ch2 02/14 01:00 BP 144 / 89; Pulse 73; Resp 20; Pulse Ox 96% ; ch2 02:15 BP 127 / 97; Pulse 78; Resp 19; Pulse Ox 97% ; ch2 02/13 18:02 Body Mass Index 18.26 (68.04 kg, 193.04 cm) aa5 MDM: 02/13 19:48 Patient medically screened. [facility] 22:21 Data reviewed: vital signs, nurses notes, lab test result(s), EKG, radiologic studies, [facility] plain films. 02/13 18:57 Order name: Flu 02/13 22:16 Order name: Basic Metabolic Panel [facility] 02/13 22:16 Order name: CBC with Diff [facility] 02/13 22:16 Order name: LFT's [facility] 02/13 22:16 Order name: Magnesium [facility] 02/13 22:16 Order name: NT PRO-BNP [facility] 02/13 22:16 Order name: PT-INR [facility] 02/13 22:16 Order name: Troponin (emerg Dept Use Only) [facility] 02/13 22:16 Order name: Blood Culture Adult (2) [facility] 02/13 22:16 Order name: Procalcitonin [facility] 02/13 22:16 Order name: Lactate [facility] 02/13 22:17 Order name: Urine Culture [facility] 02/13 22:27 Order name: Influenza Screen (A ; Complete Time: 23:31 [facility] 02/13 22:52 Order name: CBC with Automated Diff; Complete Time: 23:31 [facility] 02/13 18:57 Order name: Chest Pa And Lat (2 Views) XRAY 02/13 21:04 Order name: RAD; Complete Time: 23:31 [facility] 02/13 23:05 Order name: Urine Dipstick--Ancillary (enter results) ar5 02/13 23:21 Order name: Protime (+INR); Complete Time: 23:31 [facility] 02/13 23:46 Order name: Basic Metabolic Panel; Complete Time: 01:36 [facility] 02/13 23:46 Order name: Liver (Hepatic) Function; Complete Time: 01:36 [facility] 02/13 23:46 Order name: Troponin (Emerg Dept Use Only); Complete Time: 01:36 [facility] 02/13 23:46 Order name: NT PRO-BNP; Complete Time: 01:36 [facility] 02/13 23:46 Order name: Magnesium; Complete Time: 01:36 [facility] 02/13 23:46 Order name: Lactate; Complete Time: 01:36 [facility] 02/13 23:54 Order name: Procalcitonin; Complete Time: 01:36 [facility] 02/13 22:16 Order name: EKG; Complete Time: 22:18 [facility] 02/13 22:16 Order name: Cardiac monitoring [facility] 02/13 22:16 Order name: EKG - Nurse/Tech [facility] 02/13 22:16 Order name: IV Saline Lock [facility] 02/13 22:16 Order name: Labs collected and sent [facility] 02/13 22:16 Order name: O2 Per Protocol [facility] 02/13 22:16 Order name: O2 Sat Monitoring [facility] 02/13 22:17 Order name: Urine Dipstick-Ancillary (obtain specimen) [facility] Administered Medications: 23:00 Drug: NS 0.9% 1000 ml Route: IV; Rate: 1 bolus; Site: right antecubital; ch2 23:00 Drug: SOLU-Medrol 125 mg Route: IVP; Site: right antecubital; ch2 23:00 Drug: Pepcid 20 mg Route: IVP; Site: right antecubital; [facility] 02/14 00:28 Follow up: Response: No adverse reaction; No change in condition [facility] 02/13 23:15 Drug: NS 0.9% 1000 ml Route: IV; Rate: 125 ml/hr; Site: right antecubital; [facility] 23:19 Drug: Albuterol - atroVENT (3:1) (2.5 mg - 0.5 mg) 3 ml Route: Nebulizer; [facility] 02/14 00:29 Follow up: Response: No adverse reaction [facility] 02/13 23:37 Drug: levofloxacin 500 mg Volume: 100 ml; Route: IVPB; Infused Over: 60 mins; Site: [facility] right antecubital; 02/14 00:30 Follow up: Rate change 100 ml/hr; IV Status: Completed infusion [facility] : Drug: Cefepime 2 grams Route: IVPB; Rate: 200 ml/hr; Infused Over: 30 mins; Site: right [facility] antecubital; 01:56 Follow up: Response: No adverse reaction; IV Status: Completed infusion [facility] Disposition: 02/13/19 22:23 Transfer ordered to [facility]. Diagnosis are Chronic obstructive pulmonary disease with (acute) exacerbation, Pneumonia due to other specified bacteria, Hypotension. - Reason for transfer: Higher level of care. - Accepting physician is to hi. - Condition is Fair. - Problem is new. - Symptoms have improved. Signatures: Dispatcher [employer] Kash Cloud MD MD cha Calderon, Audri, RN RN aa5 Shannan Pelayo RN RN ch2 Corrections: (The following items were deleted from the chart) 02:17 02/13 22:23 02/13/2019 22:23 Transfer ordered to [address] Diagnosis is Chronic obstructive pulmonary disease with (acute) exacerbation; Pneumonia due to other specified bacteria; Hypotension. Reason for transfer: Higher level of care. Accepting physician is to hi. Condition is Fair. Problem is new. Symptoms have improved. manuela
[2019-02-13] MEDS ORDERED: METHYLPREDNISOLONE 125 MG INJ ONE (22:39)
[2019-02-13] MEDS ORDERED: FAMOTIDINE 20 MG/2 ML VIAL IV ONE (22:39)
[2019-02-13] MEDS ORDERED: CEFEPIME 2 GM VIAL ONE (22:39)
[2019-02-13] MEDS ORDERED: Levofloxacin500mg IV 500 MG/100 ML BAG IV ONE (22:39)
[2019-02-13] MEDS ORDERED: NA CHLORIDE 0.9% 100 ML IV ONE (22:41)
[2019-02-13] MEDS ORDERED: ALBUTEROL 2.5 MG/3 ML NEB SOL ONE (22:42)
[2019-02-13] MEDS ORDERED: IPRATROPIUM BROM 0.5MG/2.5ML ONE (22:42)
[2019-02-13] MEDS ORDERED: NA CHLORIDE 0.9% 2,000 ML ONE (22:43)
[2019-02-13 22:49] LABS: Basophils % 1.4 % (0-1.3); Hematocrit 30.8 % (39.6-49.0); Lymphocytes % 27.4 % (15.3-44.8); MPV 10.1 fL (7.6-11.3); RBC Red Blood Cell Count 3.39 M/uL (4.33-5.43)
[2019-02-13 23:20] LABS: Protime INR 0.97
[2019-02-13 23:45] LABS: ALT/SGPT 9 U/L (12-78); AST/SGOT 11 U/L (15-37); Albumin 2.3 g/dL (3.4-5.0); Alkaline Phosphatase 148 U/L (45-117); BUN Blood Urea Nitrogen 14 mg/dL (7-18); Bicarbonate 31 mmol/L (21-32); Bilirubin Direct 0.1 mg/dL (0-0.2); Bilirubin Total 0.3 mg/dL (0.2-1.0); Glucose Level 79 mg/dL (74-106); Magnesium 1.9 mg/dL (1.8-2.4); NT PRO-BNP 157 pg/mL (<125); Potassium 3.6 mmol/L (3.5-5.1); Protein, Total 5.8 g/dL (6.4-8.2); Sodium Level 141 mmol/L (136-145); Troponin (Emerg Dept Use Only) < 0.02 ng/mL (0.0-0.045)
[2019-02-14 02:41] LABS: Urine Blood NEGATIVE (NEG); Urine Glucose NEGATIVE (NEG); Urine Protein NEGATIVE (NEG); Urine Specific Gravity 1.025 (1.005-1.030); Urine pH 6.5 (5.0-7.0)
[2019-02-14 08:13] VITALS: TEMP 97.5
[2019-02-14 08:23] VITALS: BP 127/97; O2SAT 97
--- NOTE | 2019-02-14 08:23 | EKG ---
Test Date: 2019-02-13 Test Time: 18:05:56 Economic Developer: KRYSTIN MEASUREMENT RESULTS: Intervals: Rate: 92 PA: 138 QRSD: 74 QT: 370 QTc: 457 [place]: P: 65 PA: 138 QRS: 32 T: 67 INTERPRETIVE STATEMENTS: Normal sinus rhythm Nonspecific ST abnormality Abnormal ECG Compared to ECG 01/06/2019 11:38:33 ST (T wave) deviation now present Electronically Signed On 02-14-19 08:22:52 BRAND STRATEGY MANAGER by Darion Winters
== END 2019-02-14 02:17 ==
LOC: ER 17:37
DX: J44.1 Chronic obstructive pulmonary disease with (acute) exacerbation (principal); J15.8 Pneumonia due to other specified bacteria; I95.9 Hypotension, unspecified; I25.2 Old myocardial infarction; F17.210 Nicotine dependence, cigarettes, uncomplicated; Z95.818 Presence of other cardiac implants and grafts
CPT/HCPCS: 96365; 96367; 93005; 87040 ×2; 87088; 85025; 87086; 80048; 36415; 83735; 85610; 80076; 83605; 81003; 84484; 84145; 83880; 87804 ×2; 71046; 94640; 96375; 99285; J0692; J7030; J2930

== ENCOUNTER 2019-03-31 12:41 | Inpatient (IN) | payer OTHER ==
[2019-03-31 14:20] LABS: Absolute Lymphocytes (CBC) 0.9 K/uL (0.7-4.9); Basophils % 0.8 % (0-1.3); Hematocrit 33.1 % (39.6-49.0); Lymphocytes % 13.3 % (15.3-44.8); RBC Red Blood Cell Count 3.78 M/uL (4.33-5.43)
[2019-03-31] MEDS ORDERED: PIPER/TAZO/NS 3.375gm 3.375 GM/100 ML BAG ONE (14:22)
--- NOTE | 2019-03-31 14:29 | RAD REPORT ---
EXAM DESCRIPTION: RAD - Foot Left 3 View - 03/31/2019 2:08 pm CLINICAL HISTORY: Multiple draining wounds plantar surface of the foot COMPARISON: None. FINDINGS: No acute fracture, dislocation or periosteal reaction. No acute or destructive bony proces s. Remodeling is seen from old left fifth metatarsal head fracture. No plantar spur. Soft tissues are prominent around the distal foot. No bone destructive process seen. No foreign body. IMPRESSION: No radiographic evidence for osteomyelitis. No air or foreign body in the soft tissues.
[2019-03-31 14:43] LABS: Albumin 2.4 g/dL (3.4-5.0); Bilirubin Total 0.3 mg/dL (0.2-1.0); Protein, Total 7.5 g/dL (6.4-8.2)
--- NOTE | 2019-03-31 15:40 | EDPHYS ---
Physician Documentation [facility] Name: Surendra Bates Age: 64 yrs Sex: Male : 1955 Arrival Date: 03/31/2019 Time: 12:47 Bed 6 Private MD: ED Physician Giuseppe Clemens HPI: 03/31 13:33 This 64 yrs old Male presents to ER via Ambulatory with complaints of Sore on ps1 foot. 13:33 Patient presenting with wet gangrene of left foot extending from the sole to the dorsal ps1 aspect of the foot proximal to the 2nd/3rd toe. Has green purulent discharge. Reportedly had stepped on a nail 2 weeks ago and had a small sore on bottom of foot. Reportedly ulcerated 3 days ago but seems like it has been ongoing longer than reported. No fever, chills, or systemic complaints. . Historical: - Allergies: 13:03 No Known Allergies; iw - Home Meds: 13:03 Acidophilus Oral cap [Active]; alendronate 70 mg/75 mL Oral soln 75 mL once wkly iw [Active]; atorvastatin 10 mg Oral tab once daily [Active]; buspirone 10 mg Oral tab 1 tab 3 times per day [Active]; Calcium Citrate Oral [Active]; cetirizine 10 mg Oral tab 1 tab once daily [Active]; cyclobenzaprine 10 mg Oral tab 0.5 tab 3 times per day [Active]; escitalopram oxalate 20 mg Oral tab 1 tab once daily [Active]; finasteride 5 mg Oral tab 1 tab once daily [Active]; leflunomide 20 mg Oral tab 1 tab once daily [Active]; meloxicam 15 mg Oral tab 1 tab once daily [Active]; omeprazole 20 mg Oral cpDR 1 cap 2 times per day [Active]; pregabalin 225 mg Oral [Active]; ranitidine HCl 150 mg Oral cap 1 cap once daily [Active]; thiamine HCl (vitamin B1) 100 mg Oral tab daily [Active]; trazodone 100 mg Oral tab 2 tabs nightly [Active]; Vitamin B-12 100 mcg Oral tab [Active]; - PMHx: 13:03 CVA; Myocardial infarction; iw - PSHx: 13:03 Heart stents; iw - Immunization history:: Adult Immunizations up to date. - Social history:: Smoking status: Patient uses tobacco products, smokes two packs cigarettes per day. - Ebola Screening: : Patient negative for fever greater than or equal to 101.5 degrees Fahrenheit, and additional compatible Ebola Virus Disease symptoms Patient denies exposure to infectious person Patient denies travel to an Ebola-affected area in the 21 days before illness onset No symptoms or risks identified at this time. ROS: 13:33 Constitutional: Negative for fever, chills, and weight loss, Eyes: Negative for injury, ps1 pain, redness, and discharge, Respiratory: Negative for shortness of breath, cough, wheezing, and pleuritic chest pain, Abdomen/GI: Negative for abdominal pain, nausea, vomiting, diarrhea, and constipation, MS/Extremity: Negative for injury and deformity, Neuro: Negative for headache, weakness, numbness, tingling, and seizure. 13:33 Skin: Positive for ulceration, of the ball of left foot, dorsum of left foot, left second toe and left third toe. Exam: 13:33 Constitutional: This is a well developed, well nourished patient who is awake, alert, ps1 and in no acute distress. Head/Face: Normocephalic, atraumatic. Eyes: Pupils equal round and reactive to light, extra-ocular motions intact. Lids and lashes normal. Conjunctiva and sclera are non-icteric and not injected. ENT: Nares patent. No nasal discharge, no septal abnormalities noted. Tympanic membranes are normal and external auditory canals are clear. Oropharynx with no redness, swelling, or masses, exudates, or evidence of obstruction, uvula midline. Mucous membranes moist. Cardiovascular: Regular rate and rhythm. No gallops, murmurs, or rubs. Normal PMI, no JVD. No pulse deficits. Respiratory: Lungs have equal breath sounds bilaterally, clear to auscultation and percussion. No rales, rhonchi or wheezes noted. No increased work of breathing, no retractions or nasal flaring. Abdomen/GI: Soft, non-tender, with normal bowel sounds. No distension or tympany. No guarding or rebound. No evidence of tenderness throughout. MS/ Extremity: Pulses equal, no cyanosis. Neurovascular intact. Full, normal range of motion. Neuro: Awake and alert, GCS 15, oriented to person, place, time, and situation. Cranial nerves II-XII grossly intact. Sensory grossly intact. 13:33 Skin: abscess, that is moderate sized, of the left foot and left third toe and left second toe and dorsum of left foot and ball of left foot, with drainage, lesion(s), c/w wet gangrene. Vital Signs: 13:04 BP 111 / 78; Pulse 85; Resp 16; Temp 98.2; Pulse Ox 95% ; Weight 68.04 kg; Height 6 ft. iw 4 in. (193.04 cm); Pain 7/10; 14:49 BP 144 / 84; Pulse 67; Resp 16 S; Pulse Ox 97% on R/A; jl7 16:32 BP 144 / 92; Pulse 70; Resp 15 S; Pulse Ox 97% on R/A; jl7 17:52 BP 125 / 82; Pulse 79; Resp 16 S; Pulse Ox 96% on R/A; jl7 19:30 BP 106 / 63; Pulse 80; Resp 18; Temp 98.5; Pulse Ox 95% ; ea 20:14 BP 101 / 61; Pulse 75; Resp 16; Pulse Ox 97% on R/A; rv 13:04 Body Mass Index 18.26 (68.04 kg, 193.04 cm) iw MDM: 13:44 Patient medically screened. [facility] 03/31 13:29 Order name: CBC with Diff [facility] 03/31 13:29 Order name: CMP [facility] 03/31 13:29 Order name: Blood Culture Adult (2) [facility] 03/31 13:29 Order name: Wound Culture [facility] 03/31 13:30 Order name: CBC with Automated Diff; Complete Time: 15:10 [facility] 03/31 13:30 Order name: Comprehensive Metabolic Panel; Complete Time: 15:10 [facility] 03/31 13:29 Order name: Foot Left 3 View XRAY; Complete Time: 15:10 [facility] 03/31 13:30 Order name: Blood Culture EDMT 03/31 17:07 Order name: CONS Pharmacy Consult [facility] 03/31 17:07 Order name: [facility] ED[facility] 03/31 17:10 Order name: [facility] ED[facility] Administered Medications: 14:45 Drug: Zosyn 3.375 grams Route: IVPB; Infused Over: 60 mins; Site: right wrist; jl7 15:45 Follow up: Response: No adverse reaction; IV Status: Completed infusion jl7 Disposition: 03/31/19 15:39 Hospitalization ordered by Wilfrido Macias for Inpatient Admission. Preliminary diagnosis is Gangrene, not elsewhere classified. - Bed requested for Telemetry/MedSurg (Inpatient). - Status is Inpatient Admission. ea - Condition is Fair. - Problem is new. - Symptoms are unchanged. UTI on Admission? No Signatures: Dispatcher [employer] EDMS Gabrielbret Padmini Tori Tafoya, RN Audrey Curran RN RN jl7 Nupur Hale RN RN ea Singer, Phillip, MD MD ps1 Corrections: (The following items were deleted from the chart) 18:37 15:39 Hospitalization Ordered by Wilfrido Macias MD for Inpatient Admission. Preliminary bd diagnosis is Gangrene, not elsewhere classified. Bed requested for Telemetry/MedSurg (Inpatient). Status is Inpatient Admission. Condition is Fair. Problem is new. Symptoms are unchanged. UTI on Admission? No. ps1 20:25 18:37 03/31/2019 15:39 Hospitalization Ordered by Wilfrido Macias MD for Inpatient ea Admission. Preliminary diagnosis is Gangrene, not elsewhere classified. Bed requested for Telemetry/MedSurg (Inpatient). Status is Inpatient Admission. Condition is Fair. Problem is new. Symptoms are unchanged. UTI on Admission? No. bd
--- NOTE | 2019-03-31 15:40 | ER ---
Nurse's Notes [facility] Name: Surendra Bates Age: 64 yrs Sex: Male : 1955 Arrival Date: 03/31/2019 Time: 12:47 Bed 6 Private MD: Diagnosis: Gangrene, not elsewhere classified Presentation: 03/31 13:00 Presenting complaint: Patient states: sore on bottom of left foot X 3 days, not iw diabetic, draining pus, was put on antibiotics at the [place] X 3 days ago, getting worse. Transition of care: patient was not received from another setting of care. Onset of symptoms was March 27, 2019. Risk Assessment: Do you want to hurt yourself or someone else? Patient reports no desire to harm self or others. Initial Sepsis Screen: Does the patient meet any 2 criteria? No. Patient's initial sepsis screen is negative. Does the patient have a suspected source of infection? No. Patient's initial sepsis screen is negative. Care prior to arrival: None. 13:00 Method Of Arrival: Ambulatory iw 13:00 Acuity: DO 3 iw Historical: - Allergies: 13:03 No Known Allergies; iw - Home Meds: 13:03 Acidophilus Oral cap [Active]; alendronate 70 mg/75 mL Oral soln 75 mL once wkly iw [Active]; atorvastatin 10 mg Oral tab once daily [Active]; buspirone 10 mg Oral tab 1 tab 3 times per day [Active]; Calcium Citrate Oral [Active]; cetirizine 10 mg Oral tab 1 tab once daily [Active]; cyclobenzaprine 10 mg Oral tab 0.5 tab 3 times per day [Active]; escitalopram oxalate 20 mg Oral tab 1 tab once daily [Active]; finasteride 5 mg Oral tab 1 tab once daily [Active]; leflunomide 20 mg Oral tab 1 tab once daily [Active]; meloxicam 15 mg Oral tab 1 tab once daily [Active]; omeprazole 20 mg Oral cpDR 1 cap 2 times per day [Active]; pregabalin 225 mg Oral [Active]; ranitidine HCl 150 mg Oral cap 1 cap once daily [Active]; thiamine HCl (vitamin B1) 100 mg Oral tab daily [Active]; trazodone 100 mg Oral tab 2 tabs nightly [Active]; Vitamin B-12 100 mcg Oral tab [Active]; - PMHx: 13:03 CVA; Myocardial infarction; iw - PSHx: 13:03 Heart stents; iw - Immunization history:: Adult Immunizations up to date. - Social history:: Smoking status: Patient uses tobacco products, smokes two packs cigarettes per day. - Ebola Screening: : Patient negative for fever greater than or equal to 101.5 degrees Fahrenheit, and additional compatible Ebola Virus Disease symptoms Patient denies exposure to infectious person Patient denies travel to an Ebola-affected area in the 21 days before illness onset No symptoms or risks identified at this time. Screenin:00 Abuse screen: Denies threats or abuse. Denies injuries from another. Nutritional jl7 screening: No deficits noted. Tuberculosis screening: No symptoms or risk factors identified. Fall Risk IV access (20 points). Total George Fall Scale indicates No Risk (0-24 pts). Assessment: 13:20 General: Appears in no apparent distress. uncomfortable, slender, unkempt, Behavior is jl7 calm, cooperative, appropriate for age. Pain: Complains of pain in ball of left foot and dorsum of left foot Pain does not radiate. Pain currently is 7 out of 10 on a pain scale. Neuro: Level of Consciousness is awake, alert, obeys commands, Oriented to person, place, time, situation. Cardiovascular: Patient's skin is warm and dry. Respiratory: Airway is patent Respiratory effort is even, unlabored, Respiratory pattern is regular, symmetrical. Derm: Skin is dry, Skin is pale, Skin temperature is warm Wound noted dorsum of left foot and ball of left foot. 14:49 Reassessment: Patient appears in no apparent distress at this time. No changes from jl7 previously documented assessment. Patient and/or family updated on plan of care and expected duration. Pain level reassessed. Patient is alert, oriented x 3, equal unlabored respirations, skin warm/dry/pink. 16:00 Reassessment: Patient appears in no apparent distress at this time. No changes from jl7 previously documented assessment. Patient and/or family updated on plan of care and expected duration. Pain level reassessed. Patient is alert, oriented x 3, equal unlabored respirations, skin warm/dry/pink. 16:35 Reassessment: Elizabeth Romeo, pts daughter, . jl7 17:00 Reassessment: Patient appears in no apparent distress at this time. No changes from jl7 previously documented assessment. Patient and/or family updated on plan of care and expected duration. Pain level reassessed. Patient is alert, oriented x 3, equal unlabored respirations, skin warm/dry/pink. 17:52 Reassessment: Patient appears in no apparent distress at this time. No changes from jl7 previously documented assessment. Patient and/or family updated on plan of care and expected duration. Pain level reassessed. Patient is alert, oriented x 3, equal unlabored respirations, skin warm/dry/pink. 19:10 General: Appears in no apparent distress. Behavior is calm, cooperative, appropriate ea for age. Pain: Complains of pain in left foot. Neuro: Level of Consciousness is awake, alert, obeys commands, Oriented to person, place, time, situation. Cardiovascular: Patient's skin is warm and dry. Respiratory: Airway is patent Respiratory effort is even, unlabored, Respiratory pattern is regular, symmetrical. Derm: Decubitus located on left dorsum of left foot and ball of left foot approximately 1.5 cm to 2.5 cm has denuded edges bed has fibrin present. 19:50 Reassessment: Report called to Ronald ROWELL. ea 20:23 Reassessment: Patient and/or family updated on plan of care and expected duration. Pain ea level reassessed. Patient is alert, oriented x 3, equal unlabored respirations, skin warm/dry/pink. Pt admitted to second floor, pt left ED via wheelchair per tech, pt tolerating well. No s/s of pain or discomfort noted at this time. Vital Signs: 13:04 BP 111 / 78; Pulse 85; Resp 16; Temp 98.2; Pulse Ox 95% ; Weight 68.04 kg; Height 6 ft. iw 4 in. (193.04 cm); Pain 7/10; 14:49 BP 144 / 84; Pulse 67; Resp 16 S; Pulse Ox 97% on R/A; jl7 16:32 BP 144 / 92; Pulse 70; Resp 15 S; Pulse Ox 97% on R/A; jl7 17:52 BP 125 / 82; Pulse 79; Resp 16 S; Pulse Ox 96% on R/A; jl7 19:30 BP 106 / 63; Pulse 80; Resp 18; Temp 98.5; Pulse Ox 95% ; ea 20:14 BP 101 / 61; Pulse 75; Resp 16; Pulse Ox 97% on R/A; rv 13:04 Body Mass Index 18.26 (68.04 kg, 193.04 cm) ED Course: 12:47 Patient arrived in ED. mr 13:01 Triage completed. iw 13:04 Arm band placed on. iw 13:20 Giuseppe Clemens MD is Attending Physician. ps1 13:30 Patient has correct armband on for positive identification. Bed in low position. Call jl7 light in reach. Side rails up X 1. Pulse ox on. NIBP on. 13:30 No provider procedures requiring assistance completed. jl7 13:57 Audrey Almodovar, LELIA is Primary Nurse. jl7 14:09 Foot Left 3 View XRAY In Process Unspecified. EDMS 14:10 Initial lab(s) drawn, by ny, sent to lab. First set of blood cultures drawn. Inserted em1 saline lock: 20 gauge in right wrist, using aseptic technique. Blood collected. 14:30 Second set of blood cultures drawn by ny, Wound culture swab sent to lab. jl7 15:38 Wilfrido Macias MD is Hospitalizing Provider. ps1 17:52 Diet tray given. jl7 17:52 Patient admitted, IV remains in place. intact, No redness/swelling at site. jl7 Administered Medications: 14:45 Drug: Zosyn 3.375 grams Route: IVPB; Infused Over: 60 mins; Site: right wrist; jl7 15:45 Follow up: Response: No adverse reaction; IV Status: Completed infusion jl7 Outcome: 15:39 Decision to Hospitalize by Provider. ps1 20:15 Admitted to Med/surg accompanied by tech, via wheelchair, room 228, with chart, Report rv called to RONALD ROWELL 20:15 Condition: good 20:15 Instructed on the need for admit. 20:25 Patient left the ED. ea Signatures: Dispatcher [employer] ILIA KirkSkylar Tori Falcon, RN RN iw Juan Dixon em1 Audrey Almodovar, LELIA ROWELL jl7 Nupur Hale RN RN ea Singer, Phillip, MD MD ps1 Roque, Romulo, RN RN rv Corrections: (The following items were deleted from the chart) 13:04 13:00 Presenting complaint: Patient states: sore on bottom of left foot X 3 days, not iw diabetic, draining pus iw
--- NOTE | 2019-03-31 17:04 | P.HP ---
Certification for Inpatient With expected LOS: >2 Midnights Practitioner: I am a practitioner with admitting privileges, knowledge of patient current condition, hospital course, and medical plan of care. Services: Services provided to patient in accordance with Admission requirements found in Title 42 Section 412.3 of the Code of Federal Regulations Patient History Date of Service: 03/31/19 Reason for admission: R Foot Infected Ulcer History of Present Illness: Mr. Bates is 64-year-old with history of hypertension, neuropathy, multiple comorbidities who presented to the ER with complaints of right foot infected ulceration. Patient had a nail puncture to the dorsal aspect of the right foot about a week ago. He was seen at [facility] and started on oral antibiotics. Patient reports compliance to medication. The right foot ulceration has extended and now draining foul-smelling pus. He denies any fever or chills. He denies any issues with attempting to the area. Allergies No Known Drug Allergies Allergy (Verified 12/15/18 20:07) Unknown Home Medications: Atorvastatin Calcium [Lipitor*] 10 mg PO BEDTIME 12/15/18 Calcium Citrate/Vitamin D3 [Calcium Citrate - Vit D Caplet] 1 tab PO TIDWM 12/15 Duloxetine HCl 2 cap PO DAILY 12/15/18 Escitalopram [Lexapro*] 20 mg PO DAILY 12/15/18 Finasteride [Proscar*] 5 mg PO DAILY 12/15/18 Leflunomide 2 tab PO DAILY 12/15/18 Loratadine 10 mg PO DAILY 12/15/18 Pregabalin 225 mg PO BID 12/15/18 Thiamine HCl 200 mg PO DAILY 12/15/18 Trazodone [Desyrel*] 200 mg PO BEDTIME 12/15/18 Cyanocobalamin [Vitamin B-12*] 1,000 mcg IM SEECOM 01/06/19 Ensure High Protein 237 ml PO TID #90 can 01/08/19 Ferrous Sulfate [Iron] 325 mg PO TID #90 tablet 01/08/19 Pantoprazole [Protonix Tab] 40 mg PO DAILY #30 tab 01/08/19 - Past Medical/Surgical History Diabetic: No -: Hypertension -: Hyperlipidemia -: Scarring to back of the left eye -: Neuropathy -: Depression -: Arthritis -: Enlarged Prostate -: Right hand surgery -: Double Hernia Surgery -: Bilateral cataract removal - Family History Father -: Diabetes Notes: - Stroke - Social History Smoking Status: Heavy Tobacco smoker (>10 cigarettes/day) Alcohol use: No CD- Drugs: No Caffeine use: Yes Review of Systems 10-point ROS is otherwise unremarkable Integumentary: Lesions Physical Examination - Physical Exam General: Alert, In no apparent distress, Disheveled HEENT: Atraumatic, PERRLA, Mucous membr. moist/pink, EOMI, Sclerae nonicteric Neck: Supple, 2+ carotid pulse no bruit, No LAD, Without JVD or thyroid abnormality Respiratory: Clear to auscultation bilaterally, Normal air movement Cardiovascular: Regular rate/rhythm, Normal S1 S2 Gastrointestinal: Normal bowel sounds, No tenderness Musculoskeletal: No tenderness Integumentary: Other (R Foot with puncture wound extending from dorsum to ventral, malaodorous drainage.) Neurological: Normal gait, Normal speech, Normal strength at 5/5 x4 extr, Normal tone, Normal affect Lymphatics: No axilla or inguinal lymphadenopathy - Studies Laboratory Data (last 24 hrs) 03/31/19 14:10: Sodium 132 L, Potassium 4.0, BUN 12, Creatinine 0.86, Glucose 82 , Total Bilirubin 0.3, AST 21, ALT 33, Alkaline Phosphatase 143 H 03/31/19 14:10: WBC 6.5, Hgb 10.9 L, Hct 33.1 L, Plt Count 129 L Imagings Data: No radiographic evidence for osteomyelitis. No air or foreign body in the soft tissues. Assessment and Plan - Plan Mr. Bates is 64 y/o male with right foot infected also. # Right foot infected ulcer- x-ray of the foot with no radiographic evidence of osteomyelitis. will consider MRI of the foot. -blood cultures drawn. -No leukocytosis and monitor vital signs closely . -IV antibiotics, use broad-spectrum. -consult energy rater. -wound care. #Probable PAD- patient has weakened palpable pulses. Patient with significantly high risk of PAD including smoking history. - will obtain arterial doppler -statin and aspirin #Tobacco use- cessation strongly advised. #Thrombocytopenia- chronic. monitor closely DVT ppx- SCD. Patient is full code. - Advance Directives Does patient have a Living Will: No Does patient have a Durable POA for Healthcare: No - Code Status/Comfort Care Code Status: Full Code
[2019-03-31] MEDS ORDERED: ONDANSETRON 4 MG/2 ML VIAL IV PRN (17:05)
[2019-03-31] MEDS ORDERED: ACETAMINOPHEN 500 MG TAB PO PRN (17:05)
[2019-03-31] MEDS ORDERED: D5W 1,000 ML IV SCH (18:00)
[2019-03-31] MEDS: NA CHLORIDE 0.9% 1,000 ML IV SCH (20:44)
[2019-03-31] MEDS ORDERED: VANCOMYCIN 0 GM in NA CHLORIDE 0.9% 500 ML IVPB SCH (21:00)
[2019-03-31] MEDS ORDERED: PIPER/TAZO/NS 3.375gm 6.750 GM/200 ML BAG ONE (22:09)
[2019-03-31] MEDS ORDERED: VANCOMYCIN 1 GM/VIAL ONE (22:11)
[2019-03-31] MEDS: PIPER/TAZO/NS 3.375gm 3.375 GM/100 ML BAG IVPB SCH (22:20)
[2019-03-31] MEDS ORDERED: NA CHLORIDE 0.9% 250 ML ONE (22:27)
[2019-03-31] MEDS ORDERED: VANCOMYCIN 500 MG/VIAL ONE (22:40)
[2019-03-31] MEDS: VANCOMYCIN 1.25 GM in NA CHLORIDE 0.9% 250 ML IVPB SCH (22:46)
[2019-03-31 23:00] VITALS: BMI 18.1
[2019-04-01 00:43] LABS: Urine Appearance CLEAR; Urine Bilirubin NEGATIVE (NEG); Urine Blood NEGATIVE (NEG); Urine Color YELLOW; Urine Glucose NEGATIVE (NEG); Urine Protein NEGATIVE (NEG); Urine Urobilinogen 0.2 mg/dL (0.2-1.0)
[2019-04-01 00:59] LABS: Urine Microscopic Reflex NO UMIC
[2019-04-01] MEDS: PIPER/TAZO/NS 3.375gm 3.375 GM/100 ML BAG IVPB SCH ×4 (05:03→16:25)
[2019-04-01 08:20] LABS: Absolute Lymphocytes (CBC) 0.8 K/uL (0.7-4.9); Hematocrit 27.3 % (39.6-49.0); Lymphocytes % 17.3 % (15.3-44.8)
[2019-04-01] MEDS: VANCOMYCIN 1.25 GM in NA CHLORIDE 0.9% 250 ML IVPB SCH ×2 (08:35→21:00)
[2019-04-01 08:36] LABS: ALT/SGPT 21 U/L (12-78); AST/SGOT 12 U/L (15-37); Alkaline Phosphatase 110 U/L (45-117); BUN Blood Urea Nitrogen 12 mg/dL (7-18); Bicarbonate 31 mmol/L (21-32); Bilirubin Total 0.2 mg/dL (0.2-1.0); Glucose Level 90 mg/dL (74-106); Potassium 4.1 mmol/L (3.5-5.1); Protein, Total 5.8 g/dL (6.4-8.2); Sodium Level 140 mmol/L (136-145)
--- NOTE | 2019-04-01 10:25 | RAD REPORT ---
EXAM DESCRIPTION: US - Lower Extremity Arterial Bilat - 04/01/2019 9:59 am CLINICAL HISTORY: Leg swelling and pain. Ulceration COMPARISON: None FINDINGS: Waveform of the right common femoral, superficial femoral and right popliteal arteries tri phasic Monophasic waveforms right posterior tibial and right dorsalis pedis arteries Waveforms of the left common femoral, left superficial femoral and left popliteal arteries are biphas ic. Waveforms of the left dorsalis pedis and left posterior tibial arteries are monophasic Right ankle-brachial index 1.2, left ankle-brachial index 1 Right toe index 0.8, left toe index 0.7 IMPRESSION: No significant disease involving the mid and proximal arteries of the lower extremities Moderate disease involving the distal lower extremity arteries
--- NOTE | 2019-04-01 11:35 | P.PN ---
Subjective Date of Service: 04/01/19 Chief Complaint: R Foot Infected Ulcer No acute event Overnight. Stable. Physical Examination - Vital Signs Temperature: 97.4 F Blood Pressure: 117/65 Pulse: 66 Respirations: 20 Pulse Ox (%): 95 - Physical Exam General: Alert, In no apparent distress HEENT: Atraumatic, PERRLA, EOMI Neck: Supple, JVD not distended Respiratory: Clear to auscultation bilaterally, Normal air movement Cardiovascular: Regular rate/rhythm, Normal S1 S2 Gastrointestinal: Normal bowel sounds, No tenderness Musculoskeletal: No tenderness Integumentary: Skin breakdown, Skin lesion, Tenderness/swelling, Erythema Neurological: Normal speech, Normal tone, Normal affect Lymphatics: No axilla or inguinal lymphadenopathy - Studies Laboratory Data (last 24 hrs) 03/31/19 14:10: Sodium 132 L, Potassium 4.0, BUN 12, Creatinine 0.86, Glucose 82 , Total Bilirubin 0.3, AST 21, ALT 33, Alkaline Phosphatase 143 H 03/31/19 14:10: WBC 6.5, Hgb 10.9 L, Hct 33.1 L, Plt Count 129 L Medications List Reviewed: Yes Assessment And Plan - Plan Mr. Bates is 64 y/o male with right foot infected also. # Right foot infected ulcer- x-ray of the foot with no radiographic evidence of osteomyelitis. will consider MRI of the foot. -blood cultures drawn. -No leukocytosis and monitor vital signs closely . -IV antibiotics, use broad-spectrum. -consulted general surgeon, possible debridement in tomorrow. -wound care. #Probable PAD- patient has weakened palpable pulses. Patient with significantly high risk of PAD including smoking history. - will obtain arterial doppler -statin and aspirin #Tobacco use- cessation strongly advised. #Thrombocytopenia- chronic. monitor closely #BPH- home medication resumed DVT ppx- SCD. Patient is full code.
[2019-04-01] MEDS: MORPHINE 2 MG/ML SYR IV PRN ×2 (11:46→18:32)
[2019-04-01 11:51] LABS: Blood Morphology Comment NOT SEEN (NOT SEEN); Platelet Estimate ADEQ
--- NOTE | 2019-04-01 13:18 | CON ---
Date of Consultation: 04/01/2019 Brief History Of Present Illness: Patient is a 64-year-old male with a history of hypertension, neuropathy, and multiple comorbidities, who presents to the ER with complaints of LEFT foot infection. He states that he accidentally stepped on a nail on the plantar aspect of his LEFT foot between the second and third web space about 3 weeks ago. He noted that the area got more red and started having discharge and also then appeared on the dorsal aspect of his foot and apposition to the puncture site. It began with redness, swelling, and eventually ulcerated down and there is necrotic tissue now, foul odor and discharge. As such, he came to the emergency room with the above- stated complaint. He went to the [place] and was started on oral antibiotics. He is unsure of which types. He denies any fever, chills, or systemic complaints. He has not had any significant dressing changes or wound care other than just simply washing it he states. 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 Past Surgical History: Right hand surgery, bilateral inguinal hernia repair, and bilateral cataract surgery. Allergies: NO KNOWN DRUG ALLERGIES. Home Medications: Lipitor, calcium citrate, duloxetine, Lexapro, Proscar, leflunomide, loratadine, pregabalin, thiamine, trazodone, cyanocobalamin, Ensure , ferrous sulfate, and Protonix. Family History: Significant for stroke in his father as well as diabetes. Social History: He is a greater than half pack per day cigarette smoker for multiple years. He denies alcohol or recreational drug use. Review of Systems: 10-point review of systems other than HPI, denies. Physical Examination: Vital Signs: At the time of examination, his BMI is 18.1. His vital signs were a blood pressure of 117/65, pulse 66, respiratory rate 20, temperature was 97.4. General: He is awake, alert, oriented. Psychiatric: Appropriate, conversive. HEENT: Normocephalic. Sclerae icteric. Mucous membranes are moist. Oropharynx is clear. Neck: Supple. No JVD. Chest: Symmetric excursion. Cardiovascular: Regular rhythm. Pulmonary: Clear to auscultation bilaterally. Abdomen: Soft, nontender. Extremities: Focused examination of the LEFT lower extremity shows a small ulceration on the plantar aspect of the LEFT foot at approximately between the second and third web space. It is approximately a 1/4 inch in size on the dorsal aspect of the of the foot in apposition to this plantar wound. There is a large approximately 2.5 cm x 3 cm, oval, oblong area of necrosis down to the subcutaneous tissues with obvious necrosis and foul-appearing tissue. There is no discharge at this time. No drainage. The area is not tender to palpation and it was wrapped with simple dry gauze. The remainder of the examination is unremarkable. He has some hyperemia, I should say, to his toes in the area and cellulitic changes. Laboratory Data: Reveals a white blood count of 4.6, hemoglobin 8.8, hematocrit 27.3, platelet count is 121. His neutrophils are 68%. His sodium is 140, potassium 4.1, chloride 107, carbon dioxide 31, BUN 12, creatinine 0.82 , glucose is 90, total bilirubin 0.2, AST 12, ALT 21, alkaline phosphatase is 110. UA was essentially negative. He had imaging performed which included a foot x-ray, officially read as no radiographic evidence for osteomyelitis, no air or foreign body in the soft tissues. Assessment And Plan: This is a 64-year-old male with a puncture injury and necrosis to the LEFT foot along the second and third web space full thickness. 1. IV fluid hydration. 2. Antibiotic coverage. 3. I have explained the risks, benefits, and alternatives of debridement of this area including limb loss, loss of digits require amputations, ongoing wound care, nerve injury, bleeding, infection, damage to surrounding tissues. He agrees to proceed. We will plan for surgery in a.m. The patient is currently going down for additional imaging. However, I feel this patient requires surgery for the obvious wound. KRISTIAN/STEVEN Voice ID: [id number] Report ID: [id number] KRYSTEN
[2019-04-01] MEDS: BUSPIRONE HCL 5 MG TABLET PO SCH ×2 (14:00→22:03)
[2019-04-01] MEDS: SODIUM HYPOCHLORITE 0.25% 473 ML TOP SCH ×2 (14:46→22:01)
[2019-04-01] MEDS: COLLAGENASE 30 GM OINTMENT TOP SCH ×2 (14:47→22:02)
[2019-04-01] MEDS: NA CHLORIDE 0.9% 1,000 ML IV SCH (16:27)
[2019-04-01] MEDS ORDERED: GUAIFENESIN/DM 5 ML UCUP PO PRN (17:10)
[2019-04-01] MEDS ORDERED: PREGABALIN 225 MG PO SCH (21:00)
[2019-04-01] MEDS: CALCIUM CARB 500MG/VIT D 200 IU TAB PO SCH (21:00)
[2019-04-01] MEDS: LEFLUNOMIDE PO SCH (21:00)
[2019-04-01] MEDS: CYCLOBENZAPRINE 10 MG TAB PO SCH (21:57)
[2019-04-01] MEDS: ATORVASTATIN 10 MG TAB PO SCH (21:58)
[2019-04-01] MEDS: PREGABALIN 75 MG CAP PO SCH (21:58)
[2019-04-01] MEDS: PREGABALIN 150 MG CAP PO SCH (21:59)
[2019-04-01] MEDS: TRAZODONE 50 MG TABLET PO SCH (22:00)
[2019-04-01] MEDS: ENSURE ENLIVE 237 ML CAN PO SCH (22:05)
[2019-04-02] MEDS: PIPER/TAZO/NS 3.375gm 3.375 GM/100 ML BAG IVPB SCH ×2 (00:32→09:40)
[2019-04-02] MEDS: NA CHLORIDE 0.9% 1,000 ML IV SCH ×4 (02:21→22:21)
[2019-04-02 05:36] LABS: Basophils % 1.2 % (0-1.3); MPV 10.5 fL (7.6-11.3); RBC Red Blood Cell Count 2.97 M/uL (4.33-5.43)
[2019-04-02 05:45] LABS: BUN Blood Urea Nitrogen 10 mg/dL (7-18); Bicarbonate 31 mmol/L (21-32); Glucose Level 83 mg/dL (74-106); Potassium 4.4 mmol/L (3.5-5.1); Sodium Level 143 mmol/L (136-145)
[2019-04-02] MEDS: CYCLOBENZAPRINE 10 MG TAB PO SCH ×2 (09:00→20:39)
[2019-04-02] MEDS: PREGABALIN 150 MG CAP PO SCH ×2 (09:00→20:38)
[2019-04-02] MEDS: LEFLUNOMIDE PO SCH ×2 (09:00→20:41)
[2019-04-02] MEDS: FINASTERIDE 5 MG TAB PO SCH (09:00)
[2019-04-02] MEDS: THIAMINE HCL 100 MG TABLET PO SCH (09:00)
[2019-04-02] MEDS: PANTOPRAZOLE 40MG TABLET PO SCH (09:00)
[2019-04-02] MEDS: ESCITALOPRAM 20 MG TAB PO SCH (09:00)
[2019-04-02] MEDS: PREGABALIN 75 MG CAP PO SCH (09:00)
[2019-04-02] MEDS: SODIUM HYPOCHLORITE 0.25% 473 ML TOP SCH ×2 (09:00→20:41)
[2019-04-02] MEDS: CALCIUM CARB 500MG/VIT D 200 IU TAB PO SCH ×2 (09:00→20:39)
[2019-04-02] MEDS: BUSPIRONE HCL 5 MG TABLET PO SCH ×3 (09:00→20:39)
[2019-04-02] MEDS: COLLAGENASE 30 GM OINTMENT TOP SCH ×2 (09:00→20:42)
[2019-04-02] MEDS: ENSURE ENLIVE 237 ML CAN PO SCH ×2 (09:00→20:43)
[2019-04-02] MEDS: VANCOMYCIN 1.25 GM in NA CHLORIDE 0.9% 250 ML IVPB SCH (09:40)
[2019-04-02] MEDS ORDERED: BUPIVACA 0.5%/EPI 0.0005%/PF 30 ML VIAL ONE (10:44)
[2019-04-02] MEDS ORDERED: LIDOCAINE 1% MPF 5 ML VIAL ONE (11:34)
[2019-04-02] MEDS ORDERED: propofoL 200 MG/20 ML VIAL IV ONE (11:34)
[2019-04-02] MEDS ORDERED: MIDAZOLAM HCL 2 MG/2 ML INJ ONE (11:34)
[2019-04-02] MEDS ORDERED: FENTANYL CITR 100 MCG/2 ML ONE (11:34)
--- NOTE | 2019-04-02 11:36 | P.PN ---
Subjective Date of Service: 04/02/19 Chief Complaint: R Foot Infected Ulcer No acute event Overnight. Stable. Awaiting debridement today. Physical Examination - Vital Signs Temperature: 97.8 F Blood Pressure: 118/65 Pulse: 78 Respirations: 20 Pulse Ox (%): 93 - Physical Exam General: Alert, In no apparent distress HEENT: Atraumatic, PERRLA, EOMI Neck: Supple, JVD not distended Respiratory: Clear to auscultation bilaterally, Normal air movement Cardiovascular: Regular rate/rhythm, Normal S1 S2 Gastrointestinal: Normal bowel sounds, No tenderness Musculoskeletal: No tenderness Integumentary: Other (R foot ulcer, dressing intact) Neurological: Normal speech, Normal tone, Normal affect Lymphatics: No axilla or inguinal lymphadenopathy - Studies Microbiology Data (last 24 hrs): 03/31/19 14:35 Wound - Left Foot Gram Stain - Final Imagings Data: IMPRESSION: No significant disease involving the mid and proximal arteries of the lower extremities Moderate disease involving the distal lower extremity arteries Medications List Reviewed: Yes Assessment And Plan - Plan Mr. Bates is 64 y/o male with right foot infected also. # Right foot infected ulcer- x-ray of the foot with no radiographic evidence of osteomyelitis. will consider MRI of the foot. -blood cultures drawn; no growth thus far -No leukocytosis and monitor vital signs closely . -IV antibiotics, use broad-spectrum. -consulted general surgeon, debridement today. -wound care. #Probable PAD- patient has weakened palpable pulses. Patient with significantly high risk of PAD including smoking history. -Arterial doppler suggestive of moderate disease in distal extremity. -May need revascularization for wound to heal well. Patient follows up at [facility]. -statin and aspirin #Tobacco use- cessation strongly advised. #Thrombocytopenia- chronic. monitor closely #BPH- home medication resumed DVT ppx- SCD. Patient is full code.
[2019-04-02] MEDS ORDERED: Levofloxacin 750mg IV 750 MG/150 ML BAG IV SCH (12:00)
[2019-04-02] MEDS ORDERED: KETOROLAC 30 MG/ML INJ ONE (12:09)
[2019-04-02] MEDS ORDERED: COLLAGENASE 30 GM OINTMENT TOP ONE (12:32)
[2019-04-02] MEDS ORDERED: ONDANSETRON 4 MG/2 ML VIAL ONE (12:36)
--- NOTE | 2019-04-02 12:36 | P.OP ---
Preoperative diagnosis: RIGHT foot infection Postoperative diagnosis: RIGHT foot infection Primary procedure: Excisional Debridement of RIGHT foot Anesthesia: GETA Estimated blood loss: <5cc Specimen: Cultures Findings: Necrotic wound to bone extending from 3rd webspace, planter-> dorsal Complications: None Transferred to: Recovery Room Condition: Good
[2019-04-02] MEDS: ATORVASTATIN 10 MG TAB PO SCH (20:38)
[2019-04-02] MEDS: TRAZODONE 50 MG TABLET PO SCH (20:40)
--- NOTE | 2019-04-02 22:57 | OP ---
Date of Procedure: 04/02/2019 Surgeon: Cayden Nuñez MD, MD Preoperative Diagnosis: LEFT foot infection. Postoperative Diagnosis: LEFT foot infection. Procedure Performed: Excisional debridement of the LEFT foot. Anesthesia: General endotracheal. Estimated Blood Loss: Less than 5 cc. Specimens: Cultures for both aerobic and anaerobic speciation sent. Findings: Necrotic tissue extending to the bone from the third plantar webspace to the dorsal aspect of the LEFT foot and the third web space full thickness through the foot. Complications: None. Transferred to recovery room in good condition. Procedure In Detail: After informed consent was obtained, patient was brought to the operating room, prepped and draped in the usual sterile fashion. After adequate anesthesia was achieved, I examined the plantar aspect of the LEFT foot. Using a knife, I removed the necrotic tissue around the edges of a puncture site from the plantar aspect of the foot near the second and third web space. After this was removed, I used a combination of curette and sharp dissection with Metzenbaum scissors to remove all necrotic tissue. Culture was sent at this time for aerobic and anaerobic speciation. I then turned my attention to the dorsal aspect of the foot also along the third and fourth web space. There was communication between the plantar wound and the dorsal aspect of the foot. I noted that the necrotic tissue extended up to the tendons and up to the bone, but the bone was not obviously involved. The periosteum appeared to be intact and as such, I debrided all the necrotic tissue on the area which included tissues adjacent to the bone and tendons. After this was completed, I debrided circumferentially out and all necrotic tissue was removed. I irrigated the area copiously multiple times until completely clear. Applied Santyl to the wound and a sterile dressing over the top. Patient tolerated the procedure well without evidence of complication and transferred to the PACU in good condition. All counts were correct at the end of the case. KRISTIAN/MODL Voice ID: [id number] Report ID: [id number] KRYSTEN
[2019-04-03 01:05] VITALS: O2SAT 94
[2019-04-03 03:57] LABS: Basophils % 0.6 % (0-1.3); Hematocrit 25.3 % (39.6-49.0); Lymphocytes % 19.1 % (15.3-44.8); MPV 9.8 fL (7.6-11.3); RBC Red Blood Cell Count 2.89 M/uL (4.33-5.43)
[2019-04-03 04:10] LABS: BUN Blood Urea Nitrogen 12 mg/dL (7-18); Bicarbonate 31 mmol/L (21-32); Glucose Level 84 mg/dL (74-106); Potassium 4.5 mmol/L (3.5-5.1); Sodium Level 141 mmol/L (136-145)
[2019-04-03 05:41] VITALS: TEMP 97.8
[2019-04-03] MEDS: NA CHLORIDE 0.9% 1,000 ML IV SCH ×2 (05:58→08:21)
--- NOTE | 2019-04-03 08:18 | P.PN ---
Subjective Date of Service: 04/03/19 Chief Complaint: R Foot Infected Ulcer Subjective: Improving (doing well no acute issues) Physical Examination - Vital Signs Temperature: 97.8 F Blood Pressure: 121/56 Pulse: 70 Respirations: 18 Pulse Ox (%): 91 - Physical Exam General: Alert, In no apparent distress, Cooperative Musculoskeletal: Other (foot wound is clean and well packed. toes are pink and viable) - Studies Microbiology Data (last 24 hrs): 03/31/19 14:35 Wound - Left Foot Gram Stain - Final Medications List Reviewed: Yes Assessment And Plan - Plan ok to DC home with wound care - follow up in my clinic in 1 week
[2019-04-03] MEDS: CALCIUM CARB 500MG/VIT D 200 IU TAB PO SCH (09:00)
[2019-04-03] MEDS: ENSURE ENLIVE 237 ML CAN PO SCH (09:00)
[2019-04-03] MEDS: SODIUM HYPOCHLORITE 0.25% 473 ML TOP SCH (09:00)
[2019-04-03] MEDS: LEFLUNOMIDE PO SCH (09:00)
[2019-04-03] MEDS: COLLAGENASE 30 GM OINTMENT TOP SCH (09:00)
[2019-04-03] MEDS: ESCITALOPRAM 20 MG TAB PO SCH (09:10)
[2019-04-03] MEDS: CYCLOBENZAPRINE 10 MG TAB PO SCH (09:10)
[2019-04-03] MEDS: PANTOPRAZOLE 40MG TABLET PO SCH (09:10)
[2019-04-03] MEDS: PREGABALIN 150 MG CAP PO SCH (09:10)
[2019-04-03] MEDS: FINASTERIDE 5 MG TAB PO SCH (09:41)
[2019-04-03] MEDS: THIAMINE HCL 100 MG TABLET PO SCH (09:41)
[2019-04-03] MEDS: BUSPIRONE HCL 5 MG TABLET PO SCH (09:41)
--- NOTE | 2019-04-03 11:34 | P.DS ---
Admission Date: 03/31/19 Discharge Date: 04/03/19 Disposition: ROUTINE DISCHARGE Discharge Condition: GOOD Reason for Admission: R Foot Infected Ulcer - Problems (1) PAD (peripheral artery disease) Status: Acute (2) Infected wound Status: Acute (3) Wound of right foot Status: Acute (4) Hyperlipidemia Status: Chronic Qualifiers: Hyperlipidemia type: mixed hyperlipidemia Qualified Code(s): E78.2 - Mixed hyperlipidemia Brief History of Present Illness: Mr. Bates is 64-year-old with history of hypertension, neuropathy, multiple comorbidities who presented to the ER with complaints of right foot infected ulceration. Patient had a nail puncture to the dorsal aspect of the right foot about a week prior to admission. He was seen at [facility] and started on oral antibiotics. Patient reported compliance to medication. The right foot wound extended and draining foul-smelling pus. He denied any fever or chills. Hospital Course: Initial evaluation was suggestive of infected wound. General surgeon was consulted for debridement of infected wound. Wound culture grew Morganella morganii and MSSA. He also reported productive cough, sputum culture was positive for Klebsiella pneumoniae. Patient was treated with IV vancomycin and Zosyn while inpatient. He has been transitioned to oral antibiotics based on the reported sensitivity, to be completed at home. He will follow up at the [facility] for wound care. Patient was evaluated for peripheral arterial disease given significant risk factors, smoker. Arterial Doppler studies was positive for moderate disease at distal extremities. Patient had palpable pulses. He will follow up [facility] with his PCP and vascular surgeon for evaluation and possible intervention for PAD. Smoking cessation has been strongly advised. He remained hemodynamically stable for discharge home. Vital Signs/Physical Exam: Temp Pulse Resp BP Pulse Ox 97.8 F 70 18 121/56 L 91 04/03/19 08:18 04/03/19 08:18 04/03/19 08:18 04/03/19 08:18 04/03/19 08:18 General: Alert, In no apparent distress HEENT: Atraumatic, PERRLA, EOMI Neck: Supple, JVD not distended Respiratory: Clear to auscultation bilaterally, Normal air movement Cardiovascular: Regular rate/rhythm, Normal S1 S2 Gastrointestinal: Normal bowel sounds, No tenderness Musculoskeletal: No tenderness Integumentary: No rashes, Other (R foot Wound with intact dressing) Neurological: Normal speech, Normal tone, Normal affect Lymphatics: No axilla or inguinal lymphadenopathy Laboratory Data at Discharge: WBC 5.1 K/uL (4.3-10.9) D 04/03/19 03:19 Hgb 8.3 g/dL (13.6-17.9) L 04/03/19 03:19 Hct 25.3 % (39.6-49.0) L 04/03/19 03:19 Plt Count 107 K/uL (152-406) L 04/03/19 03:19 Sodium 141 mmol/L (136-145) 04/03/19 03:19 Potassium 4.5 mmol/L (3.5-5.1) 04/03/19 03:19 BUN 12 mg/dL (7-18) 04/03/19 03:19 Creatinine 0.81 mg/dL (0.55-1.3) 04/03/19 03:19 Glucose 84 mg/dL (74-106) 04/03/19 03:19 Total Bilirubin 0.2 mg/dL (0.2-1.0) 04/01/19 08:04 AST 12 U/L (15-37) L 04/01/19 08:04 ALT 21 U/L (12-78) 04/01/19 08:04 Alkaline Phosphatase 110 U/L (45-117) 04/01/19 08:04 Home Medications: Calcium Citrate/Vitamin D3 [Calcium Citrate - Vit D Caplet] 1 tab PO BID Escitalopram [Lexapro*] 20 mg PO DAILY 12/15/18 Finasteride [Proscar*] 5 mg PO DAILY 12/15/18 Leflunomide 1 tab PO BID 12/15/18 Pregabalin 225 mg PO BID 12/15/18 Thiamine HCl 200 mg PO DAILY 12/15/18 Trazodone [Desyrel*] 200 mg PO BEDTIME 12/15/18 Cyanocobalamin [Vitamin B-12*] 1,000 mcg IM SEECOM 01/06/19 Pantoprazole [Protonix Tab*] 40 mg PO DAILY #30 tab 01/08/19 Buspirone HCl [Buspar] 10 mg PO TID 03/31/19 Cetirizine HCl [Zyrtec] 10 mg PO DAILY 03/31/19 Cyclobenzaprine [Flexeril*] 0.5 tab PO BID 04/01/19 Aspirin 81 mg PO DAILY #30 tab.chew 04/03/19 Atorvastatin Calcium 40 mg PO BEDTIME #30 tablet 04/03/19 Doxycycline Hyclate 100 mg PO BID 30 Days #56 tablet 04/03/19 levoFLOXacin [Levofloxacin] 500 mg PO DAILY #30 tablet 04/03/19 New Medications: Aspirin 81 mg PO DAILY #30 tab.chew Atorvastatin Calcium 40 mg PO BEDTIME #30 tablet Doxycycline Hyclate 100 mg PO BID 30 Days #56 tablet levoFLOXacin [Levofloxacin] 500 mg PO DAILY #30 tablet Patient Discharge Instructions: - remove dressings daily, irrigate wound, repack with santyl followed by damp to dry dressings with 0.25% dakins solution on kerlix, wrap and elevate foot. -Follow up with PCP for Moderate peripheral artery disease management. -Smoking cessation Diet: AHA Activity: Non-weight bearing (to LEFT foot) Followup: Unknown,U [Primary Care Provider] - Cayden Nuñez MD [ACTIVE - CAN ADMIT] - 1 Week
[2019-04-03 13:33] VITALS: BP 126/73
[2019-04-07] MEDS ORDERED: CYANOCOBALAMIN 1000MCG/ML INJ IM SCH (09:00)
== END 2019-04-03 12:02 | disposition home or self-care (01) | DRG 572 ==
LOC: ER 12:41 → ERHOLD 17:05 → 2ND 19:59
PROVIDERS: ADMIT Hospitalist; ATTEND Hospitalist
PROC: 0JBQ0ZZ Excision of Right Foot Subcutaneous Tissue and Fascia, Open Approach (ICD-10-PCS; principal; 2019-04-02 12:00)
DX: L97.519 Non-pressure chronic ulcer of other part of right foot with unspecified severity (principal); B95.61 Methicillin susceptible Staphylococcus aureus infection as the cause of diseases classified elsewhere; B96.89 Other specified bacterial agents as the cause of diseases classified elsewhere; G62.9 Polyneuropathy, unspecified; I10 Essential (primary) hypertension; F17.210 Nicotine dependence, cigarettes, uncomplicated; I73.9 Peripheral vascular disease, unspecified; E78.2 Mixed hyperlipidemia
CPT/HCPCS: 36415; 80048; 80053; 80202; 81003; 82947; 85025; 87040; 87070; 87075; 87077; 87186; 87205; 93925; 96365; 99285; J2250; J2270; J2405; J2543; J2704; J3010; J3590; J7030

== ENCOUNTER 2021-10-20 14:38 | Emergency (ER) | payer OTHER ==
--- OUTSIDE RECORDS SUMMARY | 2021-10-20 14:41 | XMS REPORT | Continuity of Care Document ---
:1955 Author Organization [facility] Address [address] [place] [address] Dr. Wheeler [address] [place] [id number] Care Team Providers Name Role Phone Jessica_A_AH Attending Clinician Unavailable TheresaA_AH Admitting Clinician Unavailable Problems This patient has no known problems. Allergies, Adverse Reactions, Alerts This patient has no known allergies or adverse reactions. Medications This patient has no known medications. Procedures This patient has no known procedures. Encounters Start End Encounter Admission Attending Care Care Encounter Source Date/Time Date/Time Type Type Clinicians Facility Department ID 2019-05-14 2019-05-14 [phone] 04:36:00 04:36:00 _A_AH [id number] Family Practic e Results This patient has no known results.
[2021-10-20 16:15] LABS: Absolute Lymphocytes (CBC) 1.1 K/uL (0.7-4.9); Hematocrit 43.6 % (39.6-49.0); Lymphocytes % 23.2 % (15.3-44.8); MCV 93.3 fL (80-100); MPV 9.9 fL (7.6-11.3); RBC Red Blood Cell Count 4.67 M/uL (4.33-5.43)
[2021-10-20 16:28] LABS: Potassium 4.1 mmol/L (3.5-5.1)
[2021-10-20 16:49] LABS: Urine Blood Negative (Negative); Urine Glucose Negative (Negative); Urine Protein Negative (Negative); Urine Specific Gravity 1.015 (1.005-1.030)
[2021-10-20] MEDS ORDERED: NA CHLORIDE 0.9% 1,000 ML ONE (16:58)
--- NOTE | 2021-10-20 17:47 | RAD REPORT ---
EXAM DESCRIPTION: Janie Single View10/20/2021 5:41 pm CLINICAL HISTORY: Chest pain COMPARISON: 2019 FINDINGS: The lungs appear clear of acute infiltrate. The heart is normal size. Lungs are hyperaera miri. Nodular densities which overlie the chest may represent granulomas or pleural plaques IMPRESSION: No acute abnormalities displayed
--- NOTE | 2021-10-20 17:54 | EDPHYS ---
Physician Documentation [facility] Name: Surendra Bates Age: 66 yrs Sex: Male : 1955 Arrival Date: 10/20/2021 Time: 14:43 Bed 26 Private MD: Jose Antonio Mina E ED Physician Alexis Wray HPI: 10/20 17:51 This 66 yrs old Male presents to ER via Ambulatory with complaints of General Weakness, jl9 Back Pain, Pain With Urination. 17:51 Onset: The symptoms/episode began/occurred yesterday. Associated signs and symptoms: jl9 Pertinent negatives: chest pain. 17:51 Modifying factors: the patient symptoms are aggravated by nothing. The patient has not jl9 experienced similar symptoms in the past. Historical: - Allergies: 14:59 No Known Allergies; ap3 - PMHx: 14:59 CVA; Myocardial infarction; TIA; Hypercholesterolemia; ap3 - Immunization history:: Client reports receiving the 2nd dose of the Covid vaccine. - Social history:: Smoking status: Patient reports the use of cigarette tobacco products, smokes 2.5 packs per day. ROS: 17:52 Constitutional: Negative for fever, chills, and weight loss, Eyes: Negative for injury, jl9 pain, redness, and discharge, ENT: Negative for injury, pain, and discharge, Neck: Negative for injury, pain, and swelling, Cardiovascular: Negative for chest pain, palpitations, and edema, Respiratory: Negative for shortness of breath, cough, wheezing, and pleuritic chest pain, Abdomen/GI: Negative for abdominal pain, nausea, vomiting, diarrhea, and constipation, Back: Negative for injury. 17:52 MS/Extremity: Negative for injury and deformity, Skin: Negative for injury, rash, and discoloration, Neuro: Negative for headache, weakness, numbness, tingling, and seizure, Psych: Negative for depression, anxiety, suicide ideation, homicidal ideation, and hallucinations, Allergy/Immunology: Negative for hives, rash, and allergies, Endocrine: Negative for neck swelling, polydipsia, polyuria, polyphagia, and marked weight changes, Hematologic/Lymphatic: Negative for swollen nodes, abnormal bleeding, and unusual bruising. 17:52 : Positive for urinary symptoms. Exam: 17:52 Constitutional: This is a well developed, well nourished patient who is awake, alert, jl9 and in no acute distress. Head/Face: Normocephalic, atraumatic. Eyes: Pupils equal round and reactive to light, extra-ocular motions intact. Lids and lashes normal. Conjunctiva and sclera are non-icteric and not injected. Cornea within normal limits. Periorbital areas with no swelling, redness, or edema. ENT: Mucous membranes moist. Neck: Trachea midline, no thyromegaly or masses palpated, and no cervical lymphadenopathy. Supple, full range of motion without nuchal rigidity, or vertebral point tenderness. No Meningismus. Chest/axilla: Normal chest wall appearance and motion. Nontender with no deformity. No lesions are appreciated. Cardiovascular: Regular rate and rhythm with a normal S1 and S2. No gallops, murmurs, or rubs. Normal PMI, no JVD. No pulse deficits. Respiratory: Lungs have equal breath sounds bilaterally, clear to auscultation and percussion. No rales, rhonchi or wheezes noted. No increased work of breathing, no retractions or nasal flaring. Abdomen/GI: Soft, non-tender, with normal bowel sounds. No distension or tympany. No guarding or rebound. No evidence of tenderness throughout. Back: No spinal tenderness. No costovertebral tenderness. Full range of motion. Skin: Warm, dry with normal turgor. Normal color with no rashes, no lesions, and no evidence of cellulitis. MS/ Extremity: Pulses equal, no cyanosis. Neurovascular intact. Full, normal range of motion. Neuro: Awake and alert, GCS 15, oriented to person, place, time, and situation. Cranial nerves II-XII grossly intact. Motor strength 5/5 in all extremities. Sensory grossly intact. Cerebellar exam normal. Normal gait. Psych: Awake, alert, with orientation to person, place and time. Behavior, mood, and affect are within normal limits. Vital Signs: 14:57 BP 155 / 104; Pulse 65; Resp 18; Temp 98.9; Pulse Ox 100% ; Weight 63.5 kg; Height 6 ap3 ft. 4 in. (193.04 cm); 16:54 BP 142 / 84; Pulse 44; Resp 16 S; Pulse Ox 98% on R/A; aa5 14:57 Body Mass Index 17.04 (63.50 kg, 193.04 cm) ap3 MDM: 15:12 Patient medically screened. jl 17:53 Data reviewed: vital signs, nurses notes. 17:53 Test interpretation: by ED physician or midlevel provider: ECG, SB 45BPM. On BB.. jl9 Counseling: I had a detailed discussion with the patient and/or guardian regarding: the historical points, exam findings, and any diagnostic results supporting the discharge/admit diagnosis, lab results, radiology results. 10/20 15:02 Order name: BMP; Complete Time: 16:42 [facility] 10/20 15:02 Order name: CBC with Diff; Complete Time: 16:42 [facility] 10/20 15:05 Order name: Lipase; Complete Time: 16:42 [facility] 10/20 15:02 Order name: Urine Dipstick-Ancillary (obtain specimen); Complete Time: 16:35 [facility] 10/20 15:42 Order name: SARS-COV-2 RT PCR (Document "Date of Onset" if Symptomatic); Complete Time: iw 17:20 10/20 16:40 Order name: Troponin HS; Complete Time: 17:20 [facility] 10/20 16:40 Order name: XRAY Chest (1 view); Complete Time: 17:49 [facility] 10/20 16:40 Order name: EKG; Complete Time: 16:42 [facility] 10/20 16:50 Order name: Urine Dipstick-Ancillary; Complete Time: 17:20 [facility] 10/20 16:54 Order name: EKG - Nurse/Tech; Complete Time: 16:54 aa5 Administered Medications: 16:51 Drug: NS 0.9% 1000 ml Route: IV; Rate: 1 bolus; Site: right antecubital; hb 18:30 Follow up: Response: No adverse reaction; IV Status: Completed infusion; IV Intake: hb 1000ml Disposition Summary: 10/20/21 17:54 Discharge Ordered Location: Home jl9 Condition: Stable jl9 Diagnosis - Muscle weakness (generalized) jl9 Followup: jl9 - With: Private Physician - When: 1 - 2 days - Reason: Recheck today's complaints, Continuance of care, Re-evaluation by your physician Discharge Instructions: - Discharge Summary Sheet jl9 - Weakness jl9 Forms: - Medication Reconciliation Form jl9 - Thank You Letter jl9 - Antibiotic Education jl9 - Prescription Opioid Use jl9 Signatures: Dispatcher [employer] EDKathy Castro RN RN aa5 Sanaz Walden RN RN Alisha English RN RN ap3 Duy England jl9 Corrections: (The following items were deleted from the chart) 17:52 17:51 This 66 yrs old Male presents to ER via Ambulatory with complaints of jl9 General Weakness, Abdominal Pain, Back Pain, Pain With Urination. jl9
--- NOTE | 2021-10-20 17:54 | ER ---
Nurse's Notes [facility] Name: Surendra Bates Age: 66 yrs Sex: Male : 1955 Arrival Date: 10/20/2021 Time: 14:43 Bed 26 Private MD: Jose Antonio Mina E Diagnosis: Muscle weakness (generalized) Presentation: 10/20 14:57 Chief complaint: Patient states: he has been feeling weak and "not good" for a few days ap3 now. patient states that his whole body hurts and he has been having pain with urination. daughter reports that the patient has also had some intermittent confusion. Coronavirus screen: Client presents with at least one sign or symptom that may indicate coronavirus-19. Ebola Screen: No symptoms or risks identified at this time. Initial Sepsis Screen: Does the patient meet any 2 criteria? No. Patient's initial sepsis screen is negative. Does the patient have a suspected source of infection? Yes: Dysuria/Frequency/Urgency/UTI. Risk Assessment: Do you want to hurt yourself or someone else? Patient reports no desire to harm self or others. Onset of symptoms was October 18, 2021. 14:57 Method Of Arrival: Ambulatory ap3 14:57 Acuity: DO 3 ap3 Triage Assessment: 15:01 General: Appears ill, Behavior is flat. General: Reports feeling ill for fatigue for. ap3 Pain: Complains of pain in generalized body aches. Neuro: Level of Consciousness is awake, alert, obeys commands, Oriented to person, place, time, situation, Gait is steady, Speech is normal, Reports weakness. Cardiovascular: Patient's skin is warm and dry. Respiratory: Airway is patent Respiratory effort is even, unlabored, Respiratory pattern is regular, symmetrical. GI: Reports nausea. : Reports pain with urination. Historical: - Allergies: 14:59 No Known Allergies; ap3 - PMHx: 14:59 CVA; Myocardial infarction; TIA; Hypercholesterolemia; ap3 - Immunization history:: Client reports receiving the 2nd dose of the Covid vaccine. - Social history:: Smoking status: Patient reports the use of cigarette tobacco products, smokes 2.5 packs per day. Screenin:01 Abuse screen: Denies threats or abuse. Nutritional screening: No deficits noted. ap3 Tuberculosis screening: No symptoms or risk factors identified. Assessment: 16:50 Reassessment: HR was noted to be fluctuating between 30-40 bpm, palpated radial pulse aa5 34bpm, pt awake and alert, pt only c/o "feeling a little lightheaded on and off for I'm not sure how long". [employer]ACLE SOFTWARE ENGINEER was notified and EKG was ordered. Pt sitting up in bed watching TV, equal and unlabored respirations, appears in no apparent distress. . 17:24 Reassessment: Patient appears in no apparent distress at this time. Patient and/or hb family updated on plan of care and expected duration. Pain level reassessed. Patient is alert, oriented x 3, equal unlabored respirations, skin warm/dry/pink. Vital Signs: 14:57 BP 155 / 104; Pulse 65; Resp 18; Temp 98.9; Pulse Ox 100% ; Weight 63.5 kg; Height 6 ap3 ft. 4 in. (193.04 cm); 16:54 BP 142 / 84; Pulse 44; Resp 16 S; Pulse Ox 98% on R/A; aa5 14:57 Body Mass Index 17.04 (63.50 kg, 193.04 cm) ap3 ED Course: 14:43 Patient arrived in ED. am2 14:43 Jose Antonio Mina MD is Private Physician. am2 14:44 Duy England is [facility]. jl9 14:44 Alexis Wray MD is Attending Physician. jl9 14:59 Triage completed. ap3 15:02 Arm band placed on left wrist. ap3 15:28 Sanaz Walden, RN is Primary Nurse. hb 15:59 Inserted saline lock: 20 gauge in right antecubital area, using aseptic technique. hb Blood collected. 16:40 Patient has correct armband on for positive identification. hb 17:43 XRAY Chest (1 view) In Process Unspecified. EDMS 18:30 No provider procedures requiring assistance completed. IV discontinued, intact, hb bleeding controlled, No redness/swelling at site. Administered Medications: 16:51 Drug: NS 0.9% 1000 ml Route: IV; Rate: 1 bolus; Site: right antecubital; hb 18:30 Follow up: Response: No adverse reaction; IV Status: Completed infusion; IV Intake: hb 1000ml Intake: 18:30 IV: 1000ml; Total: 1000ml. hb Outcome: 17:54 Discharge ordered by MD. belle 18:30 Discharged to home ambulatory. 18:30 Condition: stable 18:30 Discharge instructions given to patient, Instructed on discharge instructions, follow up and referral plans. medication usage, Demonstrated understanding of instructions, follow-up care, medications. 18:33 Patient left the ED. Signatures: Dispatcher [employer] EDKathy Castro RN RN aa5 Sanaz Walden RN RN Alisha Stewart am2 Alisha English RN RN [email or web address] Duy England9
[2021-10-20 19:18] VITALS: TEMP 98.9
[2021-10-20 19:21] VITALS: BP 142/84; O2SAT 98
--- NOTE | 2021-10-23 13:51 | EKG ---
Test Date: 2021-10-20 Test Time: 16:41:51 Nuclear Licensing Engineer: JOANIE MEASUREMENT RESULTS: Intervals: Rate: 45 ND: 176 QRSD: 90 QT: 550 QTc: 475 [place]: P: 35 ND: 176 QRS: 45 T: 23 INTERPRETIVE STATEMENTS: Sinus bradycardia Otherwise normal ECG Compared to ECG 02/13/2019 18:05:56 Sinus rhythm no longer present ST (T wave) deviation no longer present Electronically Signed On 10-23-21 13:47:26 CDT by Rahat Amaya
== END 2021-10-20 18:33 | disposition home or self-care (01) ==
LOC: ER 14:38
DX: M62.81 Muscle weakness (generalized) (principal); R30.0 Dysuria; Z20.822 Contact with and (suspected) exposure to COVID-19; F17.210 Nicotine dependence, cigarettes, uncomplicated; Z86.73 Personal history of transient ischemic attack (TIA), and cerebral infarction without residual deficits
CPT/HCPCS: 96361; 85025; 80048; 36415; 81003; 84484; 83690; 71045; 96360; 99284; U0003; J7030; 93005